=== PATIENT | male | born 1960 | race Caucasian/White ===

== ENCOUNTER 2020-01-29 12:21 | Outpatient (REF) | payer OTHER, SELFPAY ==
--- NOTE | 2020-01-29 12:22 | XR_ITS ---
EXAMINATION: BILATERAL KNEE X-RAY CLINICAL INFORMATION: Bilateral knee pain COMPARISON: Previous x-ray July 2014 TECHNIQUE: Standing AP, lateral and sunrise views of both knees FINDINGS: Right: Bone alignment is normal. No fracture or dislocation is seen. There is severe arthritis at the medial femoral tibial patellofemoral joints with joint space narrowing and osteophyte formation. There is a small joint effusion. Left: Bone alignment is normal. No rupture or dislocation is seen. There is severe arthritis at the medial femoral tibial and patellofemoral joints with joint space narrowing and osteophyte formation. There is a small joint effusion. XR/XR knee standing BI IMPRESSION: Severe bilateral arthritis.
--- NOTE | 2020-01-29 12:22 | XR_ITS ---
EXAMINATION: BILATERAL KNEE X-RAY CLINICAL INFORMATION: Bilateral knee pain COMPARISON: Previous x-ray July 2014 TECHNIQUE: Standing AP, lateral and sunrise views of both knees FINDINGS: Right: Bone alignment is normal. No fracture or dislocation is seen. There is severe arthritis at the medial femoral tibial patellofemoral joints with joint space narrowing and osteophyte formation. There is a small joint effusion. Left: Bone alignment is normal. No rupture or dislocation is seen. There is severe arthritis at the medial femoral tibial and patellofemoral joints with joint space narrowing and osteophyte formation. There is a small joint effusion. XR/XR knee RT 2V IMPRESSION: Severe bilateral arthritis.
--- NOTE | 2020-01-29 12:22 | XR_ITS ---
EXAMINATION: BILATERAL KNEE X-RAY CLINICAL INFORMATION: Bilateral knee pain COMPARISON: Previous x-ray July 2014 TECHNIQUE: Standing AP, lateral and sunrise views of both knees FINDINGS: Right: Bone alignment is normal. No fracture or dislocation is seen. There is severe arthritis at the medial femoral tibial patellofemoral joints with joint space narrowing and osteophyte formation. There is a small joint effusion. Left: Bone alignment is normal. No rupture or dislocation is seen. There is severe arthritis at the medial femoral tibial and patellofemoral joints with joint space narrowing and osteophyte formation. There is a small joint effusion. XR/XR knee LT 2V IMPRESSION: Severe bilateral arthritis.
== END 2020-01-29 12:22 | disposition home or self-care (01) ==
LOC: HO.HOSX 12:21
PROVIDERS: Visit Provider Orthopaedic Surgery
DX: M25.561 Pain in right knee (principal); M25.562 Pain in left knee
CPT/HCPCS: 20610; 73560; 73565; 99202; J1040

== ENCOUNTER → 2021-02-27 20:58 | Outpatient (REF) | payer OTHER, SELFPAY | LOC: HO.SL 20:58 | PROVIDERS: Visit Provider Internal Medicine | DX: G47.33 Obstructive sleep apnea (adult) (pediatric) (principal) | CPT/HCPCS: 95810 ==

== ENCOUNTER → 2021-06-04 13:38 | Outpatient (BNVA) | payer OTHER, SELFPAY | PROVIDERS: Visit Provider Orthopaedic Surgery | DX: M17.0 Bilateral primary osteoarthritis of knee (principal); E11.9 Type 2 diabetes mellitus without complications; I50.9 Heart failure, unspecified | CPT/HCPCS: 20610; 99212; J1100 ==

== ENCOUNTER 2021-06-18 15:10 | Emergency (ER) | payer OTHER, SELFPAY ==
--- NOTE | ~2021-06-18 | US_ITS ---
EXAMINATION: US VENOUS WITH DOPPLER UPPER EXTREMITY, LEFT CLINICAL INFORMATION: Edema. Pain. Swelling. COMPARISON: None TECHNIQUE: Ultrasound of the upper extremity is performed using compression sonography and color and pulse Doppler flow with assessment of augmentation of flow. There is also imaging and Doppler assessment of the jugular and subclavian veins. Spectral analysis with color-flow imaging is performed. FINDINGS: Respiratory variation, normal compression, and augmented flow are noted throughout the upper extremity including the axillary, brachial, cubital, and radial and ulnar veins. There is normal flow in the internal jugular and subclavian veins. There is no visible deep or superficial thrombophlebitis. If the patient's symptoms progress, a followup ultrasound in 5 -7 days might be of value to exclude proximal propagation from a nonvisualized distal arm vein. US/US venous duplex UE LT IMPRESSION: No DVT demonstrated in the left upper extremity
--- NOTE | ~2021-06-18 | XR_ITS ---
EXAMINATION: LEFT HUMERUS AND LEFT FOREARM. CLINICAL INFORMATION: Pain and swelling. COMPARISON: None TECHNIQUE: 2 views left humerus and 2 views left forearm. FINDINGS: Left forearm: There is no visible fracture or bony abnormality. Spurring along the olecranon process. There is mild soft tissue swelling left mid forearm. Left humerus: There is mild soft tissue swelling left arm but no visible bony abnormality, fracture or periosteal thickening. Small superior olecranon process enthesophyte is seen. XR/XR forearm LT 2V IMPRESSION: Mild soft tissue swelling left arm and mid forearm. Small olecranon process enthesophyte. No bony abnormality involving the left humerus, radius or ulna.
--- NOTE | ~2021-06-18 | XR_ITS ---
EXAMINATION: LEFT HUMERUS AND LEFT FOREARM. CLINICAL INFORMATION: Pain and swelling. COMPARISON: None TECHNIQUE: 2 views left humerus and 2 views left forearm. FINDINGS: Left forearm: There is no visible fracture or bony abnormality. Spurring along the olecranon process. There is mild soft tissue swelling left mid forearm. Left humerus: There is mild soft tissue swelling left arm but no visible bony abnormality, fracture or periosteal thickening. Small superior olecranon process enthesophyte is seen. XR/XR humerus LT IMPRESSION: Mild soft tissue swelling left arm and mid forearm. Small olecranon process enthesophyte. No bony abnormality involving the left humerus, radius or ulna.
[2021-06-18 15:31] VITALS: BP 140/80; PULSE 88; O2SAT 97
[2021-06-18 16:19] VITALS: BP 109/63; PULSE 100; RESP 18; TEMP 36.7; O2SAT 97; BMI 45.3
[2021-06-18 16:41] LABS: MANUAL DIFF FLAG NO
[2021-06-18 16:43] LABS: Basophils Percent Auto 0.3 % (0-2); Eosinophils Absolute Auto 0.3 X10*3/uL (0.0-0.4); Eosinophils Percent Auto 1.7 % (0-4); Hematocrit 27.5 % (42.0-52.0); Hemoglobin 9.4 g/dl (14.0-18.0); Imm Gran Abs Auto 0.08 X10*3/uL (0.00-0.03); Imm Gran Pct Auto 0.5 % (0.0-0.4); Lymphocytes Percent Auto 6.6 % (20-40); Mean Corpuscular HGB Conc 34.2 g/dl (31.0-36.0); Mean Corpuscular Hemoglobin 27.5 pg (27.0-33.0); Mean Corpuscular Volume 80.4 fL (80.0-98.0); Mean Platelet Volume 8.2 fL (9.4-12.4); Monocytes Absolute Auto 1.2 X10*3/uL (0.1-1.2); Monocytes Percent Auto 8.1 % (2-11); Neutrophils Absolute Auto 12.1 x10*3/uL (2.0-8.3); Neutrophils Percent Auto 82.8 % (45-73); Platelet Count 328 X10*3/uL (160-400); Red Blood Count 3.42 X10*6/uL (4.60-5.80); White Blood Count 14.6 X10*3/uL (4.8-10.8)
[2021-06-18 16:48] LABS: INTERNATIONAL NORM RATIO 3.9 (0.9-1.1); Prothrombin Time 45.2 SEC (9.9-13.0)
[2021-06-18 16:51] LABS: Partial Thromboplastin Time 47.6 SEC (24.1-38.0)
[2021-06-18 17:01] LABS: Anion Gap 17 (12-20); Blood Urea Nitrogen 35 mg/dL (9-16); Calcium 8.7 mg/dL (8.4-10.2); Carbon Dioxide 24 mmol/L (22-29); Chloride 96 mmol/L (96-108); Creatinine Clr Calc Pharmacy 59.6; Estimated Glomerular Filt Rate 35; Glucose Random 99 mg/dL (60-115); Potassium 2.8 mmol/L (3.3-5.1); Sodium 134 mmol/L (135-145)
[2021-06-19 00:16] LABS: Alanine Aminotransferase 30 U/L (0-40); Albumin Level 3.4 g/dL (3.5-5.0); Alkaline Phosphatase 83 U/L (39-117); Aspartate Amino Transferase 35 U/L (5-37); Bilirubin Direct 0.4 mg/dL (0.0-0.5); Bilirubin Total 0.7 mg/dL (0.0-1.0); Lipase 33 U/L (8-78); Total Protein 6.1 g/dL (6.5-8.0)
--- NOTE | 2021-06-19 00:35 | ED.GENADULT ---
HPI - General Adult General Chief complaint: General Medical Stated complaint: LE WEAKNESS W/FALL Time Seen by Provider: 06/18/21 23:52 Source: patient Mode of arrival: ambulatory History of Present Illness HPI narrative: 61-year-old male presentation for left upper extremity pain that has been ongoing for 3 days without associated trauma, laceration, infected fingernails, and denies any shortness of breath/chest pain/palpitations but reports chills. Patient states that the arm is very tender any time he tries to move it. In addition, patient presents after having stepped out of the shower earlier today and felt like his legs were shaking which caused him to fall and land on his bottom without head strike or loss of consciousness. Patient denies any saddle anesthesia and typically has difficulty getting around with a cane and states that he often ?staggers from 1 place to the next?. Patient also reports that he has chronic bilateral ankle edema for which he takes Lasix. Related Data Home Medications Medication Instructions Recorded Confirmed amlodipine 10 mg tablet 10 mg PO DAILY 01/07/20 aspirin 81 mg tablet,delayed 81 mg PO DAILY 01/07/20 release (Adult Low Dose Aspirin) atorvastatin 20 mg tablet 20 mg PO BEDTIME 01/07/20 ferrous sulfate 143 mg (45 mg 90 mg PO DAILY tab 01/07/20 iron) tablet,extended release furosemide 40 mg tablet 40 mg PO DAILY 01/07/20 mupirocin 2 % topical ointment 1 appl TOPICAL BID 01/07/20 warfarin 5 mg tablet 5 mg PO DAILY 01/07/20 zolpidem 10 mg tablet (Ambien) 10 mg PO BEDTIME PRN 01/07/20 bupropion HCl 150 mg tablet,12 hr 150 mg PO 06/04/21 sustained-release hydralazine 25 mg tablet 25 mg PO 06/04/21 ramelteon 8 mg tablet 8 mg PO BEDTIME 06/04/21 sodium zirconium cyclosilicate 10 g PO 06/04/21 gram oral powder packet (Lokelma) Previous Rx's Medication Instructions Recorded cephalexin 500 mg capsule 500 mg PO BID 7 Days #14 cap 06/19/21 doxycycline hyclate 100 mg capsule 100 mg PO BID 7 Days #14 cap 06/19/21 Allergies Allergy/AdvReac Type Severity Reaction Status Date / Time No Known Allergies Allergy Unverified 10/25/19 17:24 Review of Systems Review of Systems: Pertinent positives and negatives as stated in HPI 10 point review of systems is otherwise negative. [facility] Past Medical History Source: nursing notes reviewed Medical History Anemia Atrial fibrillation Congestive heart failure Impaired fasting glucose Microalbuminuria Obesity QT prolongation Sleep disorder Stage 3 chronic kidney disease Type 2 diabetes mellitus Vitamin D deficiency Social History Social History Advance Directives: No Current occupation: Right handed Physical Exam ED Vital Signs: Vital Signs - 24 hr 06/18/21 16:19 06/19/21 00:50 Temperature 98.1 F Pulse Rate 100 104 H Respiratory Rate 18 20 Blood Pressure 109/63 125/66 Pulse Oximetry 97 97 BMI result Body Mass Index 45.3 VITAL SIGNS: Reviewed. GENERAL: Elevated BMI, chronically ill, in no acute distress. HEAD: Normocephalic/atraumatic EYES: PERRLA, EOMI EARS: Ext canals without abnormality OROPHARYNX: no oral lesions noted, posterior pharynx clear LUNGS: Normal breath sounds. No adventitious sounds or accessory muscle use. SpO2<97> CARDIOVASCULAR: Regular rate and rhythm without noted murmurs, no JVD but bilateral 1 to 2+ pitting ankle edema ABDOMEN: Soft, non-tender, non-distended with bowel sounds. MUSCULOSKELETAL: No tenderness, deformities, or effusions noted on gross inspection. EXTREMITIES: No cyanosis, clubbing or edema; LEFT UPPER EXTREMITY: Warm, erythematous, significant pain on movement of any of the fingers/hand/wrist for palpation around the elbow maximal at left shoulder. SKIN: Inspection of the skin reveals no rashes NEUROLOGIC: Alert and oriented x 4. Strength and sensation to light touch were grossly intact x 4. Course Course Course Narrative: 61-year-old male with history and clinical presentation suggestive of left upper extremity cellulitis with unknown etiology. Patient does report a recent left knee injection and suspect that his lower extremity difficulty that he experienced this morning may have been due to low potassium levels. However on review all investigations there is a noted leukocytosis which is consistent with clinical findings of cellulitis. No suspicion or evidence at this time for cauda equina or fractures. Patient treated with tramadol and received initial antibiotics. The patient did miss his Coumadin dose from last night, but his INR was noted to be elevated at 3.9. This was discussed with the patient and he was instructed to hold the Coumadin for 1 more dose and then resume. Patient endorses that he has a repeat INR scheduled for this next . He was also instructed to call his primary care provider 1st thing in the morning to schedule a re-evaluation. He is otherwise discharged home in stable condition. Medical Decision Making Lab Data Result diagrams: 06/18/21 16:36 06/18/21 16:36 Labs: Lab Results 06/18/21 06/18/21 06/18/21 Range/Units 16:36 16:36 16:36 WBC 14.6 H (4.8-10.8) X10*3/uL RBC 3.42 L (4.60-5.80) X10*6/uL Hgb 9.4 L (14.0-18.0) g/dl Hct 27.5 L (42.0-52.0) % MCV 80.4 (80.0-98.0) fL MCH 27.5 (27.0-33.0) pg MCHC 34.2 (31.0-36.0) g/dl RDW 14.0 (11.0-16.0) % Plt Count 328 (160-400) X10*3/uL MPV 8.2 L (9.4-12.4) fL Immature Gran % (Auto) 0.5 H (0.0-0.4) % Neut % (Auto) 82.8 H (45-73) % Lymph % (Auto) 6.6 L (20-40) % [place] % (Auto) 8.1 (2-11) % Eos % (Auto) 1.7 (0-4) % Baso % (Auto) 0.3 (0-2) % Lymph # (Auto) 1.0 L (1.2-4.9) X10*3/uL [place] # (Auto) 1.2 (0.1-1.2) X10*3/uL Eos # (Auto) 0.3 (0.0-0.4) X10*3/uL Baso # (Auto) 0.0 (0.0-0.2) X10*3/uL Abs Immat Gran (auto) 0.08 H (0.00-0.03) X10*3/uL Absolute Neuts (auto) 12.1 H (2.0-8.3) x10*3/uL Absolute Nucleated RBC 0.000 (0.0-0.012) X10*3/uL Nucleated RBC % (auto) 0.0 (0.0-0.2) /100WBC PT 45.2 H (9.9-13.0) SEC INR 3.9 H (0.9-1.1) APTT 47.6 H (24.1-38.0) SEC Sodium 134 L (135-145) mmol/L Potassium 2.8 L (3.3-5.1) mmol/L Chloride 96 (96-108) mmol/L Carbon Dioxide 24 (22-29) mmol/L Anion Gap 17 (12-20) BUN 35 H (9-16) mg/dL Creatinine 1.94 H (0.5-1.4) mg/dL Estim Creat Clear Calc 59.6 Estimated GFR 35 Random Glucose 99 (60-115) mg/dL Calcium 8.7 (8.4-10.2) mg/dL Magnesium 2.2 (1.6-2.6) mg/dL Total Bilirubin 0.7 (0.0-1.0) mg/dL Direct Bilirubin 0.4 (0.0-0.5) mg/dL AST 35 (5-37) U/L ALT 30 (0-40) U/L Alkaline Phosphatase 83 (39-117) U/L Total Protein 6.1 L (6.5-8.0) g/dL Albumin 3.4 L (3.5-5.0) g/dL Lipase 33 (8-78) U/L Discharge Plan Discharge Clinical Impression: Hypokalemia, Cellulitis, Elevated INR Patient Disposition: Home, Self-Care Instructions: Cellulitis (ED), Potassium Content of Foods List (ED), Hypokalemia (ED), Elevated INR (ED) Additional Instructions: 1. Resume all home medications as prescribed. EXCEPT: Hold iron medication until the completion of your antibiotics as there is an interaction. Hold the dose of Coumadin for Tuesday evening, then resume your Coumadin as prescribed on Tuesday and continue until your repeat INR on . 2. Complete the entire course of your antibiotics. 3. It is very important that you call the office of your primary care provider in the morning to arrange for an appointment, re-evaluation of your left upper extremity, as well as additional testing for your potassium and INR. Patient's son was with him the entire time and is a safe discharge with the son. Do not hesitate to return to the emergency room should you experience acute worsening of your symptoms or develops new concerning symptoms. Prescriptions: New doxycycline hyclate 100 mg capsule 100 mg PO BID 7 Days Qty: 14 0RF cephalexin 500 mg capsule 500 mg PO BID 7 Days Qty: 14 0RF No Action amlodipine 10 mg tablet 10 mg PO DAILY 0RF furosemide 40 mg tablet 40 mg PO DAILY 0RF warfarin 5 mg tablet 5 mg PO DAILY 0RF aspirin [Adult Low Dose Aspirin] 81 mg tablet,delayed release (DR/EC) 81 mg PO DAILY 0RF mupirocin 2 % ointment 1 appl topical BID 0RF atorvastatin 20 mg tablet 20 mg PO BEDTIME 0RF ferrous sulfate 143 mg (45 mg iron) tablet extended release 90 mg PO DAILY 0RF zolpidem [Ambien] 10 mg tablet 10 mg PO BEDTIME PRN0RF hydralazine 25 mg tablet 25 mg PO 0RF Lokelma 10 gram powder in packet PO 0RF ramelteon 8 mg tablet 8 mg PO BEDTIME 0RF bupropion HCl 150 mg tablet sustained-release 12 hr 150 mg PO 0RF Referrals: Jennifer Peters MD [Primary Care Provider] - (Hypokalemia, cellulitis of left upper extremity (started on antibiotics), INR elevated and instructed patient to hold 2 doses and then re-start.)
[2021-06-19 00:50] VITALS: BP 125/66; PULSE 104; RESP 20; O2SAT 97
[2021-06-19 00:55] LABS: Magnesium 2.2 mg/dL (1.6-2.6)
[2021-06-19] MEDS: Potassium Chloride ER 20 MEQ TAB.ER.PRT 60 MEQ PO (01:17)
[2021-06-19] MEDS: Acetaminophen 325 MG TABLET 975 MG PO (02:07)
[2021-06-19] MEDS: cephALEXin 500 MG CAPSULE PO (02:07)
[2021-06-19] MEDS: traMADoL HCL 50 MG TABLET 25 MG PO (02:27)
== END 2021-06-19 02:42 | disposition home or self-care (01) ==
PROVIDERS: Emergency Provider Student in an Organized Health Care Education/Training Program; PCP Internal Medicine
DX: E87.6 Hypokalemia (principal); L03.114 Cellulitis of left upper limb; R79.1 Abnormal coagulation profile; M79.622 Pain in left upper arm; I13.0 Hypertensive heart and chronic kidney disease with heart failure and stage 1 through stage 4 chronic kidney disease, or unspecified chronic kidney disease; E11.22 Type 2 diabetes mellitus with diabetic chronic kidney disease; N18.30 Chronic kidney disease, stage 3 unspecified; I50.9 Heart failure, unspecified; I48.91 Unspecified atrial fibrillation; Z79.899 Other long term (current) drug therapy
CPT/HCPCS: 36415; 73060; 73090; 80048; 80076; 83690; 83735; 85025; 85610; 85730; 93971; 99283; 99284

== ENCOUNTER 2021-06-23 22:07 | Inpatient (IN) | payer OTHER, SELFPAY ==
--- NOTE | ~2021-06-23 | CT_ITS ---
EXAMINATION: CT ABDOMEN AND PELVIS WITHOUT CONTRAST CLINICAL INFORMATION: Elevated LFTs COMPARISON: 01/23/2018 TECHNIQUE: Multidetector volumetric imaging was performed from the superior aspect of the liver through the pubic symphysis. Sagittal and coronal reformatted images were obtained on the technologist's workstation. This CT examination was performed using dose optimization techniques as appropriate, variously including the following: *Automated exposure control *Adjustment of mA and/or kV according to patient size (this includes techniques or standardized protocols for targeted exams where dose is matched to indication/reason for exam; i.e. extremities or head) *Use of iterative reconstruction technique DLP: 1374 mGy-cm FINDINGS: LUNG BASES: The visualized lung bases are unremarkable. LIVER, GALLBLADDER, AND BILIARY TREE: The liver is normal in size, shape, and attenuation. No focal hepatic lesion or biliary ductal dilatation is present. Numerous stones throughout the gallbladder lumen. No wall thickening or pericholecystic fluid. There is a stone in the gallbladder neck/cystic duct. This stone is also suspected in the common bile duct near the pancreas, measuring 0.3 cm on series 3 image 38. There may be up to 3 stones present, series 7 image 48 and 49. PANCREAS: Unremarkable. SPLEEN: Unremarkable. ADRENAL GLANDS: Unremarkable. KIDNEYS AND URETERS: The kidneys are normal in size, shape, and attenuation. No hydronephrosis or hydroureter. Bilateral nonobstructing renal calculi. There are 2 calculi on the right. The largest is seen at the upper pole measuring 0.4 cm, 12 cm from the posterior axillary line. Left lower pole 0.7 x 0.2 cm calculus is 14 cm from the posterior axillary line. BLADDER: Unremarkable. GASTROINTESTINAL TRACT: The stomach is unremarkable. Normal caliber small bowel. No obstruction. No colonic wall thickening or acute inflammation. Diverticulosis without diverticulitis. Normal appendix. No free air or free fluid. ABDOMINAL WALL: No significant hernia is appreciated. LYMPH NODES: Normal. VASCULAR: Normal caliber aorta with mild atherosclerotic calcification. PELVIC VISCERA: The prostate and seminal vesicles are unremarkable. OSSEOUS STRUCTURES: No acute or suspicious osseous abnormality. Moderate degenerative changes of the hips. Mild degenerative changes of the spine. CT/CT abdomen pelvis wo con IMPRESSION: Cholelithiasis with no inflammatory changes of the gallbladder. There may be a small stone in the cystic duct. There also appears to be a stone in the distal common bile duct, consistent with choledocholithiasis. There may be up to 3 stones present in the common duct. Nonobstructing bilateral renal calculi. Fleischner guidelines were followed.
--- NOTE | ~2021-06-23 | US_ITS ---
EXAMINATION: US ABDOMEN LIMITED CLINICAL INFORMATION: Transaminitis. COMPARISON: Abdomen CT from 06/24/2021 TECHNIQUE: Real-time imaging of the right upper quadrant abdominal viscera. FINDINGS: PANCREAS: The majority of the pancreas is obscured by bowel gas. The visualized portions of the pancreas have normal echotexture. No pancreatic ductal dilatation or peripancreatic fluid. LIVER: Liver has normal size, contour and parenchymal echotexture. No focal liver lesion or intrahepatic bile duct dilatation. GALLBLADDER: The gallbladder is underdistended and contains multiple shadowing calculi. No gallbladder wall thickening or pericholecystic fluid. COMMON BILE DUCT: Normal in caliber measuring 0.4 cm in diameter. A small echogenic focus within the nondilated CBD is suspicious for choledocholithiasis (image 50 of 71). RIGHT KIDNEY: The right kidney measures 11.8 cm in maximum dimension. Small, 0.5 cm and 0.4 cm calculi are seen within the upper and lower pole, respectively. No hydronephrosis. A Bosniak category 2 cyst with thin septation of the upper pole measures up to 2 cm. No renal imaging follow-up recommended. FREE FLUID: None. US/US abdomen limited IMPRESSION: * Cholelithiasis without evidence of acute cholecystitis. * Although there appears to be choledocholithiasis, there is no associated ductal dilatation. * Nonobstructing calyceal stones of the right kidney.
--- NOTE | ~2021-06-23 | MR_ITS ---
EXAMINATION: MR ABDOMEN WITHOUT CONTRAST CLINICAL INFORMATION: Abdominal pain. Choledocholithiasis COMPARISON: Ultrasound 06/24/2021. CT abdomen pelvis 06/24/2021 TECHNIQUE: Multiplanar MR images through the abdomen were obtained on a 1.5 Radha MR system without IV contrast. Heavily T2-weighted MRCP sequences of the biliary tree were obtained in multiple planes. FINDINGS: LUNG BASES: Lung bases are clear. LIVER: The liver is normal in size and signal. No hepatic steatosis is seen. No focal cystic or solid mass is present. GALLBLADDER: Numerous tiny dependent gallstones are seen within the gallbladder. No gallbladder wall thickening or pericholecystic fluid. BILIARY TREE: 3dmosping...Rald the common bile duct is only well seen on the coronal single shot series, for example series 5 images 10-12. No intrahepatic biliary ductal dilation. The common bile duct is normal in caliber, 0.3 cm in diameter. No intraluminal filling defects seen. PANCREAS: The pancreas is normal in appearance. No ductal dilatation, mass or dennis-pancreatic fluid seen. SPLEEN: Normal. Normal size. No focal lesion. ADRENAL GLANDS: Normal. No adrenal mass. KIDNEYS AND URETERS: Normal size and signal. No hydronephrosis or mass. LYMPHOVASCULAR STRUCTURES: Normal caliber aorta. IVC patent. No pathologically enlarged abdominal or retroperitoneal lymphadenopathy by size criteria OSSEOUS STRUCTURES: No acute or suspicious osseous abnormalities. No ascites. Visualized bowel is nondilated. MR/MR MRCP IMPRESSION: Limited study but no choledocholithiasis seen. There is unclear if the suspected choledocholithiasis on the CT scan has resolved or is not seen for technical reasons. Cholelithiasis is seen.
--- NOTE | ~2021-06-23 | XR_ITS ---
EXAMINATION: XR CHEST CLINICAL INFORMATION: Covid COMPARISON: 06/16/2016 TECHNIQUE: Frontal view of the chest was obtained. FINDINGS: No acute finding. There is no infiltrate. The lung booth are grossly clear. The cardiac silhouette is prominent but similar to previous. The hilar structures are comparable XR/XR chest 1V IMPRESSION: No acute finding
--- NOTE | ~2021-06-23 | CT_ITS ---
EXAMINATION: CT HEAD W/O IV CONTRAST CT CERVICAL SPINE W/O IV CONTRAST CLINICAL INFORMATION: Trauma. Recent fall. COMPARISON: None TECHNIQUE: Head - Contiguous axial imaging of the head was performed from the skull base to the vertex without the administration of intravenous contrast, and axial images are reconstructed at 2 mm and 5 mm slice thickness. Cervical spine - A volumetric, helical CT acquisition of the cervical spine was obtained without contrast; in addition to the standard set of axial images, multiplanar reformatted images were provided in the coronal and sagittal imaging planes. This CT examination was performed using dose optimization techniques as appropriate, variously including the following: *Automated exposure control *Adjustment of mA and/or kV according to patient size (this includes techniques or standardized protocols for targeted exams where dose is matched to indication/reason for exam; i.e. extremities or head) *Use of iterative reconstruction technique DLP: 848.69 mGy-cm for the head CT 615 mGy-cm for the cervical spine CT FINDINGS: HEAD: No evidence of intracranial hemorrhage, major vascular territory infarction, focal mass effect or midline shift. Myers to white matter differentiation is preserved. No extra-axial fluid collections. Mild parenchymal volume loss with commensurate prominence of ventricles and sulci; no hydrocephalus. Mild patchy hypoattenuation within supratentorial white matter is compatible with sequela of chronic mild microangiopathy. No acute findings within the posterior fossa. The cerebellar tonsils are in normal position. The calvarium is intact. There is a mucus retention cyst of the left frontal sinus. Mild mucosal thickening of inferior maxillary sinuses. No air-fluid levels within paranasal sinuses. The orbits, globes and temporomandibular joints are unremarkable. The mastoid air cells are well aerated. There is periodontal disease with observation of periapical lucencies around some of the maxillary teeth. CERVICAL SPINE: The cervical spine has normal curvature. No acute abnormalities. The craniocervical junction is normal. The occipital condyles, dens and atlantodental articulation are intact. The vertebral body heights are maintained. No fractures in the anterior or posterior elements. No prevertebral soft tissue swelling. Multilevel facet osteoarthritis. Also, there is right-sided facet joint ankylosis at C4-C5. There is 0.2 cm degenerative anterolisthesis at C4-C5 and minimal retrolisthesis at C5-C6. Moderate discovertebral degenerative change at C4-C5, C5-C6 and C6-C7. The facet and uncovertebral joint hypertrophy at C3-C4 produce severe left and moderate right neural foraminal stenosis. There is moderate right foraminal stenosis at C4-C5 and moderate bilateral foraminal stenosis at C5-C6. No spinal hematoma or focal fluid collection in the visualized neck. The examined lung apices are clear. Thyroid gland is normal. CT/CT cervical spine wo con IMPRESSION: * No intracranial hemorrhage or other acute intracranial pathology. * No fracture or traumatic subluxation of the degenerated cervical spine.
--- NOTE | ~2021-06-23 | CT_ITS ---
EXAMINATION: CT CHEST WITHOUT CONTRAST CLINICAL INFORMATION: Fall COMPARISON: Chest film dated 06/24/2021 TECHNIQUE: Multidetector volumetric CT imaging of the chest was done. Axial MIP volume rendering provided. Sagittal and coronal reformatted images were obtained. This CT examination was performed using dose optimization techniques as appropriate, variously including the following: *Automated exposure control *Adjustment of mA and/or kV according to patient size (this includes techniques or standardized protocols for targeted exams where dose is matched to indication/reason for exam; i.e. extremities or head) *Use of iterative reconstruction technique DLP: 646 mGy-cm FINDINGS: The thoracic inlet is felt to be within normal limits. The axillary regions are felt to be unremarkable. Partially visualized upper abdominal structures demonstrates a 4 mm calculus mid to upper pole right kidney. Gallstones in the gallbladder. There is no free fluid in the mediastinum. There is no bulky adenopathy. This is a noncontrast study but the hilar regions do not appear pathologically enlarged. Imaging lung booth; Right lung; There is no evidence for effusion. No pneumothorax. No significant infiltrate. 2 mm nodule on image 89 right upper lung 2 mm nodule on image 143 2 mm nodule on image 305. Calcified granuloma on image 305 and other small calcified granulomas are seen. Left lung; There is no pneumothorax. No infiltrate or effusion. Some scattered calcified granulomas are likely present. 2 mm nodule on image 163 Mild left basilar atelectasis. 4 mm calcified granuloma on image 295 Review of the bone windows does not demonstrate evidence for fracture. Degenerative change in the thoracic spine. CT/CT chest wo con IMPRESSION: Negative acute noncontrast CT of the chest. Cholelithiasis is noted. Nonobstructing calculus right kidney. Small areas of lung nodularity. The majority of these are calcified granulomas but some are too small to be adequately characterize. Consider noncontrast CT in one year for continued evaluation
--- NOTE | ~2021-06-23 | XR_ITS ---
EXAMINATION: XR ANKLE, RIGHT CLINICAL INFORMATION: Right ankle swelling and pain, status post fall COMPARISON: None TECHNIQUE: AP, lateral, and mortise views of the right ankle. FINDINGS: No evidence of acute fracture or subluxation. The talar dome is well-positioned within the ankle mortise. The ankle joint space is maintained. Small dorsal osteophytes at the talonavicular, navicular-cuneiform and second tarsometatarsal articulations. Peripheral vessels are calcified. There is nonspecific soft tissue swelling of the leg, ankle and foot. No soft tissue gas. XR/XR ankle RT 2V IMPRESSION: * No acute fracture or malalignment at the right ankle. * Nonspecific soft tissue swelling of the extremity.
[2021-06-23 22:01] VITALS: BP 105/57; BP 105/75; PULSE 90; RESP 15; TEMP 36.8; O2SAT 97; BMI 32.8
[2021-06-23 23:27] VITALS: BP 118/52; PULSE 83; RESP 14; O2SAT 97
--- NOTE | 2021-06-23 23:42 | ECG_ITS ---
Test Reason : WEAKNESS Blood Pressure : / mmHG Vent. Rate : 095 BPM Atrial Rate : 249 BPM P-R Int : 000 ms QRS Dur : 114 ms QT Int : 428 ms P-R-T Axes : 000 -33 064 degrees QTc Int : 537 ms Atrial flutter with variable A-V block Left axis deviation Prolonged QT Abnormal ECG When compared with ECG of 01-NOV-2014 14:57, Atrial flutter has replaced Sinus rhythm Vent. rate has increased BY 33 BPM T wave amplitude has decreased in Anterior leads Referred By: Mable Iqbal Electronically Signed By:LORETTA FLYNN
--- NOTE | 2021-06-23 23:45 | ED.WEAKNESS ---
HPI - Weakness General Chief complaint: Weakness Stated complaint: fall covid + Time Seen by Provider: 06/23/21 23:28 Source: patient and EMS Mode of arrival: EMS Limitations: no limitations History of Present Illness HPI Narrative: Patient comes in the emergency room complaining of multiple falls and weakness. Patient states that for about a week, he has been complaining that his legs suddenly gave out. Patient states that sometimes he is just standing and then he has falls straight down. This happened approximately 1 week ago, and then today, patient was getting into his son's car, same thing happen. Both times patient did not lose consciousness, did not hit his head, patient is on Eliquis. This time patient came to the emergency room because he was unable to get up, ambulance was called for a lift assist and decided to come to the emergency room. Patient states that he is concerned that he has COVID. Related Data Home Medications Medication Instructions Recorded Confirmed amlodipine 10 mg tablet 10 mg PO DAILY 01/07/20 aspirin 81 mg tablet,delayed 81 mg PO DAILY 01/07/20 release (Adult Low Dose Aspirin) atorvastatin 20 mg tablet 20 mg PO BEDTIME 01/07/20 ferrous sulfate 143 mg (45 mg 90 mg PO DAILY tab 01/07/20 iron) tablet,extended release furosemide 40 mg tablet 40 mg PO DAILY 01/07/20 mupirocin 2 % topical ointment 1 appl TOPICAL BID 01/07/20 warfarin 5 mg tablet 5 mg PO DAILY 01/07/20 zolpidem 10 mg tablet (Ambien) 10 mg PO BEDTIME PRN 01/07/20 bupropion HCl 150 mg tablet,12 hr 150 mg PO 06/04/21 sustained-release hydralazine 25 mg tablet 25 mg PO 06/04/21 ramelteon 8 mg tablet 8 mg PO BEDTIME 06/04/21 sodium zirconium cyclosilicate 10 g PO 06/04/21 gram oral powder packet (Lokelwa) Previous Rx's Medication Instructions Recorded cephalexin 500 mg capsule 500 mg PO BID 7 Days #14 cap 06/19/21 doxycycline hyclate 100 mg capsule 100 mg PO BID 7 Days #14 cap 06/19/21 Allergies Allergy/AdvReac Type Severity Reaction Status Date / Time No Known Allergies Allergy Unverified 10/25/19 17:24 Review of Systems Review of Systems: Constitutional : No Weight loss, No Fever, No Chills, No Night Sweats, complaining of generalized weakness ENT/Mouth : No Hearing loss, No Ear Pain, No Nasal Congestion, No Sinus Pain, No Hoarseness, No sore throat, No Rhinorrhea, No Swallowing Difficulty Eyes: No Eye Pain, No Swelling, No Redness, No Foreign Body, No Discharge, No Vision Changes Cardiovascular : No Chest Pain, No SOB, No Dyspnea on Exertion, No Orthopnea, No Edema, No Palpitations Respiratory : No Cough, No Sputum, No Wheezing, No Smoke Exposure, No Dyspnea Gastrointestinal : No Nausea, No Vomiting, No Diarrhea, No Constipation, No abdominal Pain, No Hematochezia, No Melena Genitourinary : no irregular bleeding, No Dysuria, No Urinary Frequency, No Hematuria, No Urinary Incontinence, No Urgency, No Flank Pain, No Urinary Flow Changes, No Hesitancy Musculoskeletal : Complaining of chronic lower extremity pain, especially left knee since 1984 Skin : No Skin Lesions, No rash Neuro : No Weakness, No Numbness, No Paresthesias, No Loss of Consciousness, No Dizziness, No Headache Psych : No Anxiety/Panic, No Depression, No SI/HI/AH/VH, No Social Issues, Heme/Lymph: No Bruising, No Bleeding,No Lymphadenopathy Endocrine : No Polyuria, No Polydipsia, No Temperature Intolerance [facility] Past Medical History Medical History Anemia Atrial fibrillation Congestive heart failure Impaired fasting glucose Microalbuminuria Obesity QT prolongation Sleep disorder Stage 3 chronic kidney disease Type 2 diabetes mellitus Vitamin D deficiency Social History Social History Alcohol intake: never Patient Tobacco Use Status: Never used Tobacco Use of substances other than those prescribed or required for medical reasons: No Advance Directives: No Advance Directives Information Provided: No Current occupation: Right handed Physical Exam Vital Signs: Vital Signs: Last Vital Signs Temp 98.2 F 06/23/21 22:01 Pulse 94 06/24/21 00:35 Resp 18 06/24/21 00:35 BP 98/49 L 06/24/21 00:35 Pulse Ox 95 06/24/21 00:35 BMI result Body Mass Index 32.8 Course Course Course Narrative: Patient's creatinine is at baseline, patient potassium 3.1. Patient states that he has had issues with hyperkalemia, that he was overmedicated and became hypokalemic. Today potassium 3.1, repleted with p.o. potassium 40 mEq. Patient's labs show increased LFTs, patient does not have right upper quadrant pain. Patient is COVID positive. It is possible that LFTs elevation are secondary to COVID. Will go ahead and order CT scan, at this time, acute cholecystitis is not suspected, patient has no abdominal pain. Patient seems weak. Patient will likely need case management physical therapy. Urinalysis and drug screen pending Sign-out given to Dr. Sol MDM - Weakness Lab Data Result diagrams: 06/24/21 00:43 06/24/21 00:42 Labs: Lab Results 06/24/21 06/24/21 06/24/21 Range/Units 00:42 00:42 00:42 WBC (4.8-10.8) X10*3/uL RBC (4.60-5.80) X10*6/uL Hgb (14.0-18.0) g/dl Hct (42.0-52.0) % MCV (80.0-98.0) fL MCH (27.0-33.0) pg MCHC (31.0-36.0) g/dl RDW (11.0-16.0) % Plt Count (160-400) X10*3/uL MPV (9.4-12.4) fL Immature Gran % (Auto) (0.0-0.4) % Neut % (Auto) (45-73) % Lymph % (Auto) (20-40) % [place] % (Auto) (2-11) % Eos % (Auto) (0-4) % Baso % (Auto) (0-2) % Lymph # (Auto) (1.2-4.9) X10*3/uL [place] # (Auto) (0.1-1.2) X10*3/uL Eos # (Auto) (0.0-0.4) X10*3/uL Baso # (Auto) (0.0-0.2) X10*3/uL Abs Immat Gran (auto) (0.00-0.03) X10*3/uL Absolute Neuts (auto) (2.0-8.3) x10*3/uL Absolute Nucleated RBC (0.0-0.012) X10*3/uL Nucleated RBC % (auto) (0.0-0.2) /100WBC PT 33.8 H (9.9-13.0) SEC INR 2.9 H (0.9-1.1) Sodium 137 (135-145) mmol/L Potassium 3.1 L (3.3-5.1) mmol/L Chloride 96 (96-108) mmol/L Carbon Dioxide 31 H (22-29) mmol/L Anion Gap 13 (12-20) BUN 27 H (9-16) mg/dL Creatinine 1.54 H (0.5-1.4) mg/dL Estim Creat Clear Calc 63.3 Estimated GFR 46 Random Glucose 205 H D (60-115) mg/dL Calcium 8.4 (8.4-10.2) mg/dL Magnesium 1.8 (1.6-2.6) mg/dL Total Bilirubin 1.0 (0.0-1.0) mg/dL Direct Bilirubin 0.7 H (0.0-0.5) mg/dL AST 139 H (5-37) U/L ALT 92 H (0-40) U/L Alkaline Phosphatase 350 H D (39-117) U/L B-Natriuretic Peptide (<100) pg/mL Total Protein 5.9 L (6.5-8.0) g/dL Albumin 3.2 L (3.5-5.0) g/dL TSH (0.32-4.0) uIU/mL COVID-19 (JUAN) Positive A (Negative) COVID-19 Clin Com See Note 06/24/21 06/24/21 06/24/21 Range/Units 00:42 00:42 00:43 WBC 5.4 (4.8-10.8) X10*3/uL RBC 3.37 L (4.60-5.80) X10*6/uL Hgb 8.8 L (14.0-18.0) g/dl Hct 27.6 L (42.0-52.0) % MCV 81.9 (80.0-98.0) fL MCH 26.1 L (27.0-33.0) pg MCHC 31.9 (31.0-36.0) g/dl RDW 14.6 (11.0-16.0) % Plt Count 339 (160-400) X10*3/uL MPV 8.0 L (9.4-12.4) fL Immature Gran % (Auto) 2.1 H (0.0-0.4) % Neut % (Auto) 86.6 H (45-73) % Lymph % (Auto) 5.8 L (20-40) % [place] % (Auto) 4.1 (2-11) % Eos % (Auto) 0.7 (0-4) % Baso % (Auto) 0.7 (0-2) % Lymph # (Auto) 0.3 L (1.2-4.9) X10*3/uL [place] # (Auto) 0.2 (0.1-1.2) X10*3/uL Eos # (Auto) 0.0 (0.0-0.4) X10*3/uL Baso # (Auto) 0.0 (0.0-0.2) X10*3/uL Abs Immat Gran (auto) 0.11 H (0.00-0.03) X10*3/uL Absolute Neuts (auto) 4.6 (2.0-8.3) x10*3/uL Absolute Nucleated RBC 0.000 (0.0-0.012) X10*3/uL Nucleated RBC % (auto) 0.0 (0.0-0.2) /100WBC PT (9.9-13.0) SEC INR (0.9-1.1) Sodium (135-145) mmol/L Potassium (3.3-5.1) mmol/L Chloride (96-108) mmol/L Carbon Dioxide (22-29) mmol/L Anion Gap (12-20) BUN (9-16) mg/dL Creatinine (0.5-1.4) mg/dL Estim Creat Clear Calc Estimated GFR Random Glucose (60-115) mg/dL Calcium (8.4-10.2) mg/dL Magnesium (1.6-2.6) mg/dL Total Bilirubin (0.0-1.0) mg/dL Direct Bilirubin (0.0-0.5) mg/dL AST (5-37) U/L ALT (0-40) U/L Alkaline Phosphatase (39-117) U/L B-Natriuretic Peptide 233 H (<100) pg/mL Total Protein (6.5-8.0) g/dL Albumin (3.5-5.0) g/dL TSH 0.67 (0.32-4.0) uIU/mL COVID-19 (JUAN) (Negative) COVID-19 Clin Com Discharge Plan Discharge Clinical Impression: Weakness, COVID-19, Acute hypokalemia, Elevated LFTs Patient Disposition: Still a Patient Prescriptions: No Action doxycycline hyclate 100 mg capsule 100 mg PO BID 7 Days Qty: 14 0RF cephalexin 500 mg capsule 500 mg PO BID 7 Days Qty: 14 0RF amlodipine 10 mg tablet 10 mg PO DAILY 0RF furosemide 40 mg tablet 40 mg PO DAILY 0RF warfarin 5 mg tablet 5 mg PO DAILY 0RF aspirin [Adult Low Dose Aspirin] 81 mg tablet,delayed release (DR/EC) 81 mg PO DAILY 0RF mupirocin 2 % ointment 1 appl topical BID 0RF atorvastatin 20 mg tablet 20 mg PO BEDTIME 0RF ferrous sulfate 143 mg (45 mg iron) tablet extended release 90 mg PO DAILY 0RF zolpidem [Ambien] 10 mg tablet 10 mg PO BEDTIME PRN0RF hydralazine 25 mg tablet 25 mg PO 0RF Lokelma 10 gram powder in packet PO 0RF ramelteon 8 mg tablet 8 mg PO BEDTIME 0RF bupropion HCl 150 mg tablet sustained-release 12 hr 150 mg PO 0RF
[2021-06-24] VITALS (10 sets, daily range): BP systolic 96–136; BP diastolic 49–76; PULSE 75–98; RESP 13–20; TEMP 36.1–36.9; O2SAT 95–98; BMI 42.4
[2021-06-24 00:53] LABS: Basophils Percent Auto 0.7 % (0-2); Eosinophils Percent Auto 0.7 % (0-4); Hematocrit 27.6 % (42.0-52.0); Hemoglobin 8.8 g/dl (14.0-18.0); Imm Gran Abs Auto 0.11 X10*3/uL (0.00-0.03); Imm Gran Pct Auto 2.1 % (0.0-0.4); Lymphocytes Absolute Auto 0.3 X10*3/uL (1.2-4.9); Lymphocytes Percent Auto 5.8 % (20-40); MANUAL DIFF FLAG NO; Mean Corpuscular HGB Conc 31.9 g/dl (31.0-36.0); Mean Corpuscular Hemoglobin 26.1 pg (27.0-33.0); Mean Corpuscular Volume 81.9 fL (80.0-98.0); Monocytes Absolute Auto 0.2 X10*3/uL (0.1-1.2); Monocytes Percent Auto 4.1 % (2-11); Neutrophils Absolute Auto 4.6 x10*3/uL (2.0-8.3); Neutrophils Percent Auto 86.6 % (45-73); Platelet Count 339 X10*3/uL (160-400); Red Blood Count 3.37 X10*6/uL (4.60-5.80); Red Cell Distribution Width 14.6 % (11.0-16.0); White Blood Count 5.4 X10*3/uL (4.8-10.8)
[2021-06-24 01:08] LABS: COVID-19 Test Positive (Negative)
[2021-06-24 01:11] LABS: INTERNATIONAL NORM RATIO 2.9 (0.9-1.1); Prothrombin Time 33.8 SEC (9.9-13.0)
[2021-06-24 01:17] LABS: B Type Natriuretic Peptide 233 pg/mL (<100)
[2021-06-24 01:26] LABS: Alanine Aminotransferase 92 U/L (0-40); Albumin Level 3.2 g/dL (3.5-5.0); Alkaline Phosphatase 350 U/L (39-117); Anion Gap 13 (12-20); Aspartate Amino Transferase 139 U/L (5-37); Bilirubin Direct 0.7 mg/dL (0.0-0.5); Blood Urea Nitrogen 27 mg/dL (9-16); Calcium 8.4 mg/dL (8.4-10.2); Carbon Dioxide 31 mmol/L (22-29); Chloride 96 mmol/L (96-108); Creatinine Clr Calc Pharmacy 63.3; Estimated Glomerular Filt Rate 46; Glucose Random 205 mg/dL (60-115); Magnesium 1.8 mg/dL (1.6-2.6); Potassium 3.1 mmol/L (3.3-5.1); Sodium 137 mmol/L (135-145); Total Protein 5.9 g/dL (6.5-8.0)
[2021-06-24 01:44] LABS: TSH reflex Free T4 0.67 uIU/mL (0.32-4.0)
[2021-06-24 02:57] LABS: Gamma Glutamyl Transpeptidase 273 U/L (11-51); Lactate Dehydrogenase 310 U/L (118-273)
[2021-06-24 03:39] LABS: Appearance Urine CLEAR; Color Urine YELLOW; Glucose Urine UA NEG (NEG); Leukocyte Esterase Urine NEG (NEG); Nitrite Urine NEG (NEG); Specific Gravity - Urine 1.015 (1.005-1.025); UACC Culture Trigger NO; Urine Blood 1+ (NEG); Urine Ketones NEG (NEG); Urine Protein NEG (NEG-TRACE)
[2021-06-24 03:42] LABS: Amphetamine Screen Urine Not Detected (Not Detect); Barbiturates, Urine Not Detected (Not Detect); Benzodiazepines Screen Urine Not Detected (Not Detect); Cannabinoid Screen Urine Not Detected (Not Detect); Cocaine Screen Urine Not Detected (Not Detect); Fentanyl, urine Not Detected (Not Detect); Opiate Screen Urine Not Detected (Not Detect); Phencyclidine Screen Urine Not Detected (Not Detect)
[2021-06-24 03:49] LABS: Bacteria Urine 1+ /LPF; Squamous Epithelial Cell Urine 1+ /LPF
[2021-06-24] MEDS: Furosemide 100 MG/10 ML VIAL 80 MG IVPUSH (04:46)
[2021-06-24] MEDS: Potassium Chloride Packet 20 MEQ PACKET 40 MEQ PO (04:46)
[2021-06-24] MEDS: Piperacillin Sodium/Tazobactam 3.375 GM in 0.9 % Sodium Chloride 50 ML IV (04:46)
--- NOTE | 2021-06-24 05:51 | P.HPHOSP_ITS ---
History of Present Illness Date of Service: 06/24/21 Chief Complaint: Fall 61-year-old female with a past medical history of hypertension, hyperlipidemia, diabetes, CAD, CHF, AFib on Coumadin, insomnia, depression presented to the hospital today with a chief complaint of generalized weakness/falls. Patient reports that over the past few days he has been having generalized weakness; had a fall on last Tuesday; presented to the ER and noted to have left wrist is/forearm cellulitis. Given antibiotics. Patient mentioned that yesterday he had cough and subjective fevers; checked his COVID-19 and came back positive. Infant generally weak; and today when he was trying to come to the hospital while he was getting into the car he tripped and landed on his buttocks. Denies any head strike or loss of consciousness. Had multiple episodes. Denies any nausea vomiting or diarrhea. Mentions she has been having shortness of breath/dyspnea on exertion. Denies any chest pain or palpitations. Denies any recent travel or sick contacts. Review of all other systems is negative except mentioned above ER course: Per ER team patient's exam was nonfocal; CT abdomen showed choledocholithiasis; on labs noted to have elevated liver enzymes. Also patient is COVID-19 positive. Saturating 97% on room air. Admitted to the hospital for further management. Patient has potassium of 3.1. Repleted. [facility] Medical History Anemia Atrial fibrillation Congestive heart failure Impaired fasting glucose Microalbuminuria Obesity QT prolongation Sleep disorder Stage 3 chronic kidney disease Type 2 diabetes mellitus Vitamin D deficiency Social History Alcohol intake: never Patient Tobacco Use Status: Never used Tobacco Use of substances other than those prescribed or required for medical reasons: No Advance Directives: No Advance Directives Information Provided: No Current occupation: Right handed Meds Allergies Allergy/AdvReac Type Severity Reaction Status Date / Time No Known Allergies Allergy Unverified 10/25/19 17:24 Active Medications: Current Medications Sodium Chloride (0.9 % Sodium Chloride Flush 3 Ml Syringe) 3 ml IVFLUSH [facility] Home Medications Medication Instructions Recorded Confirmed Last Taken Type amlodipine 10 mg tablet 10 mg PO DAILY 01/07/20 Unknown History aspirin 81 mg tablet,delayed 81 mg PO DAILY 01/07/20 Unknown History release (Adult Low Dose Aspirin) atorvastatin 20 mg tablet 20 mg PO BEDTIME 01/07/20 Unknown History ferrous sulfate 143 mg (45 mg 90 mg PO DAILY tab 01/07/20 Unknown History iron) tablet,extended release furosemide 40 mg tablet 40 mg PO DAILY 01/07/20 Unknown History mupirocin 2 % topical ointment 1 appl TOPICAL BID 01/07/20 Unknown History warfarin 5 mg tablet 5 mg PO DAILY 01/07/20 Unknown History zolpidem 10 mg tablet (Ambien) 10 mg PO BEDTIME PRN 01/07/20 Unknown History bupropion HCl 150 mg tablet,12 hr 150 mg PO 06/04/21 Unknown History sustained-release hydralazine 25 mg tablet 25 mg PO 06/04/21 Unknown History ramelteon 8 mg tablet 8 mg PO BEDTIME 06/04/21 Unknown History sodium zirconium cyclosilicate 10 g PO 06/04/21 Unknown History gram oral powder packet (Lokelma) Physical Exam Vital Signs and Narrative: Vital Signs: Last Vital Signs Temp 98.4 F 06/24/21 03:48 Pulse 77 06/24/21 03:48 Resp 17 06/24/21 03:48 BP 124/61 06/24/21 03:48 Pulse Ox 97 06/24/21 03:48 BMI result Body Mass Index 32.8 Gen: Appears be in no acute distress HEENT: NCAT, Moist mucosa. Neck is supple Pulmonary: Vesicular breath sounds, fair air entry CVS: Normal S1-S2 Abdomen: BS+, Soft, Nontender Extremities: Warm well perfused Neuro: Alert and awake. Grossly nonfocal except left lower extremity limited strength 3/5-attributes to pain in his knee and ankle. Sensations intact. Results Labs CBC and Chem 7: 06/24/21 00:43 06/24/21 00:42 Labs: Laboratory Results - last 24 hr 06/24/21 06/24/21 06/24/21 00:42 00:42 00:42 MCV MCH MCHC RDW Plt Count MPV Immature Gran % (Auto) Neut % (Auto) Lymph % (Auto) [place] % (Auto) Eos % (Auto) Baso % (Auto) Lymph # (Auto) [place] # (Auto) Eos # (Auto) Baso # (Auto) Abs Immat Gran (auto) Absolute Neuts (auto) Absolute Nucleated RBC Nucleated RBC % (auto) PT 33.8 H INR 2.9 H Anion Gap 13 Estim Creat Clear Calc 63.3 Estimated GFR 46 Random Glucose 205 H D Lactic Acid Calcium 8.4 Magnesium 1.8 Total Bilirubin 1.0 Direct Bilirubin 0.7 H GGT 273 H AST 139 H ALT 92 H Alkaline Phosphatase 350 H D Lactate Dehydrogenase 310 H B-Natriuretic Peptide Total Protein 5.9 L Albumin 3.2 L TSH Urine Color Urine Appearance Urine pH Ur Specific Pax Urine Protein Urine Glucose (UA) Urine Ketones Urine Blood Urine Nitrite Ur Leukocyte Esterase Urine RBC Urine WBC Ur Squamous Epith Cells Urine Bacteria Urine Opiates Screen Urine Fentanyl Screen Ur Barbiturates Screen Ur Phencyclidine Scrn Ur Amphetamines Screen U Benzodiazepines Scrn Urine Cocaine Screen U Marijuana (THC) Screen COVID-19 (JUAN) Positive A [employer] See Note 06/24/21 06/24/21 06/24/21 00:42 00:42 00:43 MCV 81.9 MCH 26.1 L MCHC 31.9 RDW 14.6 Plt Count 339 MPV 8.0 L Immature Gran % (Auto) 2.1 H Neut % (Auto) 86.6 H Lymph % (Auto) 5.8 L [place] % (Auto) 4.1 Eos % (Auto) 0.7 Baso % (Auto) 0.7 Lymph # (Auto) 0.3 L [place] # (Auto) 0.2 Eos # (Auto) 0.0 Baso # (Auto) 0.0 Abs Immat Gran (auto) 0.11 H Absolute Neuts (auto) 4.6 Absolute Nucleated RBC 0.000 Nucleated RBC % (auto) 0.0 PT INR Anion Gap Estim Creat Clear Calc Estimated GFR Random Glucose Lactic Acid Calcium Magnesium Total Bilirubin Direct Bilirubin GGT AST ALT Alkaline Phosphatase Lactate Dehydrogenase B-Natriuretic Peptide 233 H Total Protein Albumin TSH 0.67 Urine Color Urine Appearance Urine pH Ur Specific Pax Urine Protein Urine Glucose (UA) Urine Ketones Urine Blood Urine Nitrite Ur Leukocyte Esterase Urine RBC Urine WBC Ur Squamous Epith Cells Urine Bacteria Urine Opiates Screen Urine Fentanyl Screen Ur Barbiturates Screen Ur Phencyclidine Scrn Ur Amphetamines Screen U Benzodiazepines Scrn Urine Cocaine Screen U Marijuana (THC) Screen COVID-19 (JUAN) COVID-19 [employer] 06/24/21 06/24/21 06/24/21 03:14 03:14 03:57 MCV MCH MCHC RDW Plt Count MPV Immature Gran % (Auto) Neut % (Auto) Lymph % (Auto) [place] % (Auto) Eos % (Auto) Baso % (Auto) Lymph # (Auto) [place] # (Auto) Eos # (Auto) Baso # (Auto) Abs Immat Gran (auto) Absolute Neuts (auto) Absolute Nucleated RBC Nucleated RBC % (auto) PT INR Anion Gap Estim Creat Clear Calc Estimated GFR Random Glucose Lactic Acid 1.0 Calcium Magnesium Total Bilirubin Direct Bilirubin GGT AST ALT Alkaline Phosphatase Lactate Dehydrogenase B-Natriuretic Peptide Total Protein Albumin TSH Urine Color YELLOW Urine Appearance CLEAR Urine pH 6.0 Ur Specific Pax 1.015 Urine Protein NEG Urine Glucose (UA) NEG Urine Ketones NEG Urine Blood 1+ H Urine Nitrite NEG Ur Leukocyte Esterase NEG Urine RBC 10-14 H Urine WBC 1-4 Ur Squamous Epith Cells 1+ Urine Bacteria 1+ Urine Opiates Screen Not Detected Urine Fentanyl Screen Not Detected Ur Barbiturates Screen Not Detected Ur Phencyclidine Scrn Not Detected Ur Amphetamines Screen Not Detected U Benzodiazepines Scrn Not Detected Urine Cocaine Screen Not Detected U Marijuana (THC) Screen Not Detected COVID-19 (JUAN) COVID-19 Clin Com Imaging Radiologist's Impressions: Impressions Abdomen/Pelvis CT 06/24/21 02:45 IMPRESSION: Cholelithiasis with no inflammatory changes of the gallbladder. There may be a small stone in the cystic duct. There also appears to be a stone in the distal common bile duct, consistent with choledocholithiasis. There may be up to 3 stones present in the common duct. Nonobstructing bilateral renal calculi. Fleischner guidelines were followed. Assessment and Plan (1) Choledocholithiasis: Status: Acute (2) Type 2 diabetes mellitus: Status: Acute Plan 61-year-old female with a past medical history of hypertension, hyperlipidemia, diabetes, CHF, AFib presented to the hospital with a chief complaint of generalized weakness/falls. Noted to have following Recurrent falls: Likely in setting of generalized weakness from COVID-19. Will also obtain CT head and CT cervical spine. Fall precautions. PT/OT eventually COVID-19 positive: Patient currently saturating 97% on room air. Will obtain CT chest. Id consult for further recommendations. Patient is not COVID-19 vaccinated. Choledocholithiasis/transaminitis: Trend liver enzymes. Gastroenterology consult. Avoid hepatotoxins. Will obtain acute hepatitis panel as well. Recent left forearm/wrist cellulitis: Currently erythema significantly improved. Patient on 7 day course of cephalexin/doxycycline-started on last Tuesday. Will continue Arthritis: Patient receives steroid injections in his knees. Pain control. History of AFib: Rate controlled. Patient on Coumadin. INR therapeutic at 2.9. History of diabetes: Insulin sliding scale. History of hypertension/hyperlipidemia: Continue home amlodipine, aspirin, hold home statin for now History of CHF: Continue home Lasix Patient's home medications will be continued once med rec is done. DVT prophylaxis: Patient of complaint Code status: Full code Quality Stroke Does the patient have a stroke diagnosis?: No VTE Prior VTE?: No VTE Risk Level:: Medical - moderate - high VTE Device Contraindication: Treatment Not Indicated VTE Drug Contraindication: N/A - Med Ordered
[2021-06-24 07:18] LABS: Glucose, Whole Blood 189 mg/dL (60-115)
[2021-06-24] MEDS: cephALEXin 500 MG CAPSULE PO ×2 (07:34→18:27)
--- NOTE | 2021-06-24 07:57 | PC.NURSE ---
Son, Fabio would like to speak with CM regarding pts discharge planning as son(s) both feel it is not ideal to take him back home
--- NOTE | 2021-06-24 10:08 | PHA.MEDREC ---
Pharmacy Consult ? Medication Reconciliation Pharmacy has completed the medication reconciliation. Patient report lisinopril was stopped due to high potassium. Was started on Lokelma but no longer taking. He is also current holding his ferrous sulfate. Saumya Gonzalez, PharmD
[2021-06-24 12:05] LABS: Glucose, Whole Blood 140 mg/dL (60-115)
--- NOTE | 2021-06-24 12:51 | MHC.CM.PN ---
pt in ed overflow pt is covid positive called and spoke with both sons who explion that pt lives on 3rd floor hew had no servceis prior to admission pt had just been at pcp who feels pt will need rehab we discusse the need for a pt eval and bed search process pt is not vax dc plan is str
--- NOTE | 2021-06-24 13:20 | PC.NURSE ---
Pt A&Ox4, no complaints of pain, admits to multiple falls, but able to ambulate with encouragement and walker at this time. NSR on monitor, LCA, no gi/gu complaints at this time, bañuelos is in place. Call nieto within reach, will continue to monitor.
--- NOTE | 2021-06-24 16:18 | PM.EVENT ---
Event Note Date of Service: 06/24/21 Event Note: Chart reviewed patient examined. Agree with history and physical as outlined. No somewhat improved. Hopeful discharge in a.m.
[2021-06-24 17:26] LABS: Glucose, Whole Blood 146 mg/dL (60-115)
[2021-06-24] MEDS: Furosemide 40 MG TABLET PO (18:27)
[2021-06-24] MEDS: Acetaminophen 325 MG TABLET 650 MG PO (19:35)
[2021-06-24] MEDS: Warfarin Sodium 3 MG TABLET PO (21:10)
[2021-06-24] MEDS: Atorvastatin Calcium 20 MG TABLET PO (21:22)
[2021-06-24 21:26] LABS: Glucose, Whole Blood 107 mg/dL (60-115)
[2021-06-24] MEDS: 0.9 % Sodium Chloride Flush 3 ML SYRINGE IVFLUSH (23:27)
[2021-06-25 03:45] VITALS: BP 128/77; PULSE 67; RESP 20; TEMP 36.6; O2SAT 95
[2021-06-25] MEDS: cephALEXin 500 MG CAPSULE PO ×2 (05:35→18:33)
[2021-06-25 07:10] LABS: Glucose, Whole Blood 96 mg/dL (60-115)
[2021-06-25 07:36] LABS: INTERNATIONAL NORM RATIO 3.4 (0.9-1.1); Prothrombin Time 39.8 SEC (9.9-13.0)
[2021-06-25 07:42] VITALS: BP 120/63; PULSE 89; RESP 20; TEMP 36.7; O2SAT 98
[2021-06-25] MEDS: hydrALAZINE HCl 25 MG TABLET PO (08:55)
[2021-06-25] MEDS: Aspirin Enteric Coated 81 MG TABLET.DR PO (08:55)
[2021-06-25] MEDS: 0.9 % Sodium Chloride Flush 3 ML SYRINGE IVFLUSH ×2 (08:55→16:06)
[2021-06-25] MEDS: Acetaminophen 325 MG TABLET 650 MG PO (08:55)
[2021-06-25] MEDS: Furosemide 40 MG TABLET PO ×2 (08:55→17:01)
[2021-06-25] MEDS: buPROPion HCl XL 300 MG TAB.ER.24H PO (08:55)
[2021-06-25] MEDS: amLODIPine Besylate 10 MG TABLET PO (08:55)
[2021-06-25] MEDS: Metoprolol Tartrate 100 MG TABLET PO ×2 (08:55→20:13)
[2021-06-25 11:00] LABS: Glucose, Whole Blood 157 mg/dL (60-115)
[2021-06-25 11:06] LABS: MANUAL DIFF FLAG NO
[2021-06-25 11:13] LABS: Basophils Percent Auto 0.4 % (0-2); Eosinophils Absolute Auto 0.1 X10*3/uL (0.0-0.4); Eosinophils Percent Auto 1.1 % (0-4); Hematocrit 29.7 % (42.0-52.0); Hemoglobin 9.5 g/dl (14.0-18.0); Imm Gran Abs Auto 0.11 X10*3/uL (0.00-0.03); Imm Gran Pct Auto 1.4 % (0.0-0.4); Lymphocytes Percent Auto 13.4 % (20-40); Mean Corpuscular Hemoglobin 26.4 pg (27.0-33.0); Mean Corpuscular Volume 82.5 fL (80.0-98.0); Mean Platelet Volume 8.4 fL (9.4-12.4); Monocytes Absolute Auto 0.7 X10*3/uL (0.1-1.2); Monocytes Percent Auto 8.7 % (2-11); Neutrophils Absolute Auto 5.7 x10*3/uL (2.0-8.3); Platelet Count 411 X10*3/uL (160-400); Red Cell Distribution Width 14.4 % (11.0-16.0); White Blood Count 7.6 X10*3/uL (4.8-10.8)
[2021-06-25 11:26] LABS: Alanine Aminotransferase 129 U/L (0-40); Alkaline Phosphatase 471 U/L (39-117); Anion Gap 14 (12-20); Aspartate Amino Transferase 135 U/L (5-37); Bilirubin Total 0.5 mg/dL (0.0-1.0); Blood Urea Nitrogen 29 mg/dL (9-16); Calcium 8.2 mg/dL (8.4-10.2); Carbon Dioxide 30 mmol/L (22-29); Chloride 98 mmol/L (96-108); Creatinine Clr Calc Pharmacy 69.2; Estimated Glomerular Filt Rate 44; Glucose Fasting 177 mg/dL (60-99); Potassium 2.7 mmol/L (3.3-5.1); Sodium 139 mmol/L (135-145); Total Protein 5.4 g/dL (6.5-8.0)
[2021-06-25 11:29] VITALS: BP 124/70; PULSE 67; RESP 20; TEMP 36.8; O2SAT 95
[2021-06-25] MEDS: Insulin Lispro 100 UNIT/ML 3 ML VIAL SUBCUT (11:50)
--- NOTE | 2021-06-25 14:05 | HO.PM.IMPN ---
Subjective Subjective Date of Service: 06/25/21 Interval History: No acute events overnight. Monitor showing a flutter with multiple PVCs Review of Systems Denies chest pain Denies shortness of breath Denies nausea vomiting diarrhea Denies fever chills Physical Exam Vital Signs: Vital Signs: Last Vital Signs Temp 98.2 F 06/25/21 11:29 Pulse 67 06/25/21 11:29 Resp 20 06/25/21 11:29 BP 124/70 06/25/21 11:29 Pulse Ox 95 06/25/21 11:29 BMI result Body Mass Index 42.4 Const: Other: Awake alert no acute distress Resp: Other: Clear to auscultation bilaterally no rales rhonchi or wheezes Cardio: Other: No S4; positive S1-S2; no S3 murmurs or gallops GI: Other: Soft nontender nondistended normoactive bowel sounds Extrem: Other: No edema Objective Data Active Medications Acetaminophen (Acetaminophen 325 Mg Tablet) 650 mg PO Q6H PRN PRN Reason: Headache Last Admin: 06/25/21 08:55 Dose: 650 mg Documented by: NILDA Amlodipine Besylate (Amlodipine Besylate 10 Mg Tablet) 10 mg PO DAILY [facility]; Protocol Last Admin: 06/25/21 08:55 Dose: 10 mg Documented by: NILDA Aspirin (Aspirin Enteric Coated 81 Mg Tablet.) 81 mg PO DAILY [facility] Last Admin: 06/25/21 08:55 Dose: 81 mg Documented by: NILDA Atorvastatin Calcium (Atorvastatin Calcium 20 Mg Tablet) 20 mg PO BEDTIME [facility] Last Admin: 06/24/21 21:22 Dose: 20 mg Documented by: JOAO Bupropion HCl (Bupropion Hcl Xl 300 Mg Tab.Er.24h) 300 mg PO DAILY [facility] Last Admin: 06/25/21 08:55 Dose: 300 mg Documented by: NILDA Cephalexin HCl (Cephalexin 500 Mg Capsule) 500 mg PO Q12H [facility] Last Admin: 06/25/21 05:35 Dose: 500 mg Documented by: SONIA Dextrose (Dextrose 50 % 25 Gm/50 Ml Syringe) 25 gm IVPUSH Q15M PRN; Protocol PRN Reason: per Hypoglycemia Standing Ord. Doxycycline Hyclate (Doxycycline Hyclate 100 Mg Tablet) 100 mg PO Q12H [facility] Last Admin: 06/25/21 05:35 Dose: 100 mg Documented by: SONIA Furosemide (Furosemide 40 Mg Tablet) 40 mg PO BIDWM [facility]; Protocol Last Admin: 06/25/21 08:55 Dose: 40 mg Documented by: NILDA Glucose (Glucose Gel 15 Gm Gel..Gram.) 15 gm PO Q15M PRN; Protocol PRN Reason: per Hypoglycemia Standing Ord. Hydralazine HCl (Hydralazine Hcl 25 Mg Tablet) 25 mg PO BID [facility]; Protocol Last Admin: 06/25/21 08:55 Dose: 25 mg Documented by: NILDA Insulin Human Lispro (Insulin Lispro 100 Unit/Ml 3 Ml Vial) 0 unit SUBCUT QIDACHS [facility]; Protocol Last Admin: 06/25/21 11:50 Dose: 2 unit Documented by: NILDA Metoprolol Tartrate (Metoprolol Tartrate 100 Mg Tablet) 100 mg PO BID [facility]; Protocol Last Admin: 06/25/21 08:55 Dose: 100 mg Documented by: NILDA Non-Formulary Medication (Ramelteon) 8 mg PO BEDTIME [facility] Pharmacy Consult (Consult Rx Perform Med Rec) 1 each MISCELLANE ONCE PRN PRN Reason: Consult order Sodium Chloride (0.9 % Sodium Chloride Flush 3 Ml Syringe) 3 ml IVFLUSH QSHIFT [facility] Last Admin: 06/25/21 08:55 Dose: 3 ml Documented by: NILDA Warfarin Sodium (Warfarin Sodium 3 Mg Tablet) 3 mg PO DAILY@1800 [facility] Last Admin: 06/24/21 21:10 Dose: 3 mg Documented by: JOAO Zolpidem Tartrate (Zolpidem Tartrate 5 Mg Tablet) 10 mg PO BEDTIME PRN PRN Reason: Insomnia Labs CBC & Chem 7: 06/25/21 10:45 06/25/21 10:45 Labs: Laboratory Results - last 24 hr 06/24/21 06/24/21 06/25/21 17:23 21:24 07:05 MCV MCH MCHC RDW Plt Count MPV Immature Gran % (Auto) Neut % (Auto) Lymph % (Auto) [place] % (Auto) Eos % (Auto) Baso % (Auto) Lymph # (Auto) [place] # (Auto) Eos # (Auto) Baso # (Auto) Abs Immat Gran (auto) Absolute Neuts (auto) Absolute Nucleated RBC Nucleated RBC % (auto) PT 39.8 H INR 3.4 H Anion Gap Estim Creat Clear Calc Estimated GFR POC Glucose 146 H 107 Fasting Glucose Calcium Total Bilirubin AST ALT Alkaline Phosphatase Total Protein Albumin 06/25/21 06/25/21 06/25/21 07:06 10:45 10:45 MCV 82.5 MCH 26.4 L MCHC 32.0 RDW 14.4 Plt Count 411 H MPV 8.4 L Immature Gran % (Auto) 1.4 H Neut % (Auto) 75.0 H Lymph % (Auto) 13.4 L [place] % (Auto) 8.7 Eos % (Auto) 1.1 Baso % (Auto) 0.4 Lymph # (Auto) 1.0 L [place] # (Auto) 0.7 Eos # (Auto) 0.1 Baso # (Auto) 0.0 Abs Immat Gran (auto) 0.11 H Absolute Neuts (auto) 5.7 Absolute Nucleated RBC 0.000 Nucleated RBC % (auto) 0.0 PT INR Anion Gap 14 Estim Creat Clear Calc 69.2 Estimated GFR 44 POC Glucose 96 Fasting Glucose 177 H Calcium 8.2 L Total Bilirubin 0.5 AST 135 H ALT 129 H Alkaline Phosphatase 471 H D Total Protein 5.4 L Albumin 3.0 L 06/25/21 10:55 MCV MCH MCHC RDW Plt Count MPV Immature Gran % (Auto) Neut % (Auto) Lymph % (Auto) [place] % (Auto) Eos % (Auto) Baso % (Auto) Lymph # (Auto) [place] # (Auto) Eos # (Auto) Baso # (Auto) Abs Immat Gran (auto) Absolute Neuts (auto) Absolute Nucleated RBC Nucleated RBC % (auto) PT INR Anion Gap Estim Creat Clear Calc Estimated GFR POC Glucose 157 H Fasting Glucose Calcium Total Bilirubin AST ALT Alkaline Phosphatase Total Protein Albumin Microbiology Microbiology Results: Microbiology 06/24/21 03:57 Blood Culture - Preliminary Blood - Venous No growth after 24 hours. 06/24/21 03:57 Blood Culture - Preliminary Blood - Venous No growth after 24 hours. Assessment and Plan (1) Weakness: Status: Acute (2) Choledocholithiasis: Status: Acute (3) Atrial fibrillation: Status: Acute (4) Type 2 diabetes mellitus: Status: Acute Plan 61-year-old female with a past medical history of hypertension, hyperlipidemia, diabetes, CHF, AFib presented to the hospital with a chief complaint of generalized weakness/falls; found to have mild elevation of his transaminases; ventricular response rate acceptable 1. Weakness (multifactorial with COVID-19) -continue supportive therapies -PT consult 2. Choledocholithiasis/transaminitis -enzymes trending upward -GI to evaluate; ultrasound reviewed no acute ductal dilatation -continue to trend LFTs 3. Atrial fibrillation -acceptable rate control on current therapies -adjust as indicated -INR therapeutic 4. Diabetes type 2 -acceptable control on current therapies -continue with list pro correctional scale -ADA diet Coumadin Full code Requires ongoing hospitalization to trend liver function test and decide intervention Quality Stroke Does the patient have a stroke diagnosis?: No VTE Prior VTE?: No VTE Risk Level:: Medical - moderate - high VTE Device Contraindication: Treatment Not Indicated VTE Drug Contraindication: N/A - Med Ordered
--- NOTE | 2021-06-25 15:00 | PM.GICN ---
History of Present Illness Data of Consult Service Date: 06/25/21 Requesting physician: Lincoln Bedolla Primary Care Provider: Jennifer Senior MD HPI Reason for consult: choledocholithiasis 61-year-old male with hx of hypertension, hyperlipidemia, diabetes, CAD, CHF, AFib on Coumadin, insomnia, and depression who I am seeing for assessment of choledocholithiasis. Patient presented to hospital with few days of fever, malaise, weakness and sore throat/ he checked COVID test at home and was negative. He was getting worse with initially dry cough but now productive (not sure what color). He came to ED and was found to be COVID pos. also admitted to increased SOB but no chest pain. He does have a dull ache 2/10 in severity across the top part of the abdomen, with no radiation to the back. Denies worse with food, maybe worse with coughing. No nausea or vomiting. He was also found to have left arm cellulitis for which he is getting treatment and also admitted to a fall without LOC day of presentation to the ED and fell on his backside. CT abdomen and US suggestive of gallstones and choledocholithiasis; No biliary dilation noted labs with elevated liver enzymes but normal bili. Review of Systems Review of Systems: Constitutional : No Weight loss, + Fever, + Chills ENT/Mouth : + sore throat, No Rhinorrhea Eyes: No Swelling, No Redness Cardiovascular : No Chest Pain, No SOB, No Edema Respiratory : + Cough, + Sputum, No Wheezing Gastrointestinal : see HPI Genitourinary : NO Dysuria, No Urinary Frequency, No Hematuria, No Urgency Musculoskeletal : No joint pain, No Myalgias, No Joint Swelling Skin : No Skin Lesions, No rash Neuro : No Weakness, No Numbness, No Dizziness, No Headache Psych : No Anxiety/Panic, No Depression Heme/Lymph: No Bruising, No Lymphadenopathy Endocrine : No Polyuria, No Polydipsia All other systems reviewed and are negative. [facility] Past Medical History Medical History (Updated 06/25/21 @ 15:10 by Arcadio Beltre MD) Anemia Atrial fibrillation Congestive heart failure Impaired fasting glucose Microalbuminuria Obesity QT prolongation Sleep disorder Stage 3 chronic kidney disease Type 2 diabetes mellitus Vitamin D deficiency Family History Pertinent family history: No FH of gallstones, liver problems Social History Social History Household Members: None Housing: Apartment Housing Other:: 3rd floor walk up Do you presently have visiting nurse or other home services: Yes (X1 weekly) Alcohol intake: never Patient Tobacco Use Status: Never used Tobacco service: No Current occupation: Right handed Meds Allergies Allergy/AdvReac Type Severity Reaction Status Date / Time No Known Allergies Allergy Unverified 10/25/19 17:24 Active Medications: Current Medications Acetaminophen (Acetaminophen 325 Mg Tablet) 650 mg PO Q6H PRN PRN Reason: Headache Last Admin: 06/25/21 08:55 Dose: 650 mg Documented by: Amlodipine Besylate (Amlodipine Besylate 10 Mg Tablet) 10 mg PO DAILY [facility]; Protocol Last Admin: 06/25/21 08:55 Dose: 10 mg Documented by: Aspirin (Aspirin Enteric Coated 81 Mg Tablet.) 81 mg PO DAILY [facility] Last Admin: 06/25/21 08:55 Dose: 81 mg Documented by: Atorvastatin Calcium (Atorvastatin Calcium 20 Mg Tablet) 20 mg PO BEDTIME [facility] Last Admin: 06/24/21 21:22 Dose: 20 mg Documented by: Bupropion HCl (Bupropion Hcl Xl 300 Mg Tab.Er.24h) 300 mg PO DAILY [facility] Last Admin: 06/25/21 08:55 Dose: 300 mg Documented by: Cephalexin HCl (Cephalexin 500 Mg Capsule) 500 mg PO Q12H [facility] Last Admin: 06/25/21 05:35 Dose: 500 mg Documented by: Dextrose (Dextrose 50 % 25 Gm/50 Ml Syringe) 25 gm IVPUSH Q15M PRN; Protocol PRN Reason: per Hypoglycemia Standing Ord. Doxycycline Hyclate (Doxycycline Hyclate 100 Mg Tablet) 100 mg PO Q12H [facility] Last Admin: 06/25/21 05:35 Dose: 100 mg Documented by: Furosemide (Furosemide 40 Mg Tablet) 40 mg PO BIDWM [facility]; Protocol Last Admin: 06/25/21 08:55 Dose: 40 mg Documented by: Glucose (Glucose Gel 15 Gm Gel..Gram.) 15 gm PO Q15M PRN; Protocol PRN Reason: per Hypoglycemia Standing Ord. Hydralazine HCl (Hydralazine Hcl 25 Mg Tablet) 25 mg PO BID [facility]; Protocol Last Admin: 06/25/21 08:55 Dose: 25 mg Documented by: Sodium Chloride (Ns) 1,000 mls @ 100 mls/hr IVCONT .Q10H [facility] Insulin Human Lispro (Insulin Lispro 100 Unit/Ml 3 Ml Vial) 0 unit SUBCUT QIDACHS [facility]; Protocol Last Admin: 06/25/21 11:50 Dose: 2 unit Documented by: Metoprolol Tartrate (Metoprolol Tartrate 100 Mg Tablet) 100 mg PO BID [facility]; Protocol Last Admin: 06/25/21 08:55 Dose: 100 mg Documented by: Non-Formulary Medication (Ramelteon) 8 mg PO BEDTIME [facility] Pharmacy Consult (Consult Rx Perform Med Rec) 1 each MISCELLANE ONCE PRN PRN Reason: Consult order Sodium Chloride (0.9 % Sodium Chloride Flush 3 Ml Syringe) 3 ml IVFLUSH QSHIFT [facility] Last Admin: 06/25/21 08:55 Dose: 3 ml Documented by: Warfarin Sodium (Warfarin Sodium 3 Mg Tablet) 3 mg PO DAILY@1800 [facility] Last Admin: 06/24/21 21:10 Dose: 3 mg Documented by: Zolpidem Tartrate (Zolpidem Tartrate 5 Mg Tablet) 10 mg PO BEDTIME PRN PRN Reason: Insomnia Home Medications Medication Instructions Recorded Confirmed Last Taken Type amlodipine 10 mg tablet 10 mg PO DAILY 01/07/20 06/24/21 Unknown History aspirin 81 mg tablet,delayed 81 mg PO DAILY 01/07/20 06/24/21 Unknown History release (Adult Low Dose Aspirin) atorvastatin 20 mg tablet 20 mg PO BEDTIME 01/07/20 06/24/21 Unknown History furosemide 40 mg tablet 40 mg PO BID 01/07/20 06/24/21 Unknown History zolpidem 10 mg tablet (Ambien) 10 mg PO BEDTIME PRN 01/07/20 06/24/21 Unknown History bupropion HCl 150 mg tablet,12 hr 150 mg PO BID 06/04/21 06/24/21 Unknown History sustained-release hydralazine 25 mg tablet 25 mg PO BID 06/04/21 06/24/21 Unknown History ramelteon 8 mg tablet 8 mg PO BEDTIME 06/04/21 06/24/21 Unknown History melatonin 5 mg tablet 2 tab PO BEDTIME 06/24/21 06/24/21 Unknown History metoprolol tartrate 100 mg tablet 1 tab PO BID 06/24/21 06/24/21 Unknown History warfarin 3 mg tablet 1 tab PO DAILY 06/24/21 06/24/21 Unknown History Physical Exam Vital Signs: Vital Signs: Last Vital Signs Temp 98.2 F 06/25/21 11:29 Pulse 67 06/25/21 11:29 Resp 20 06/25/21 11:29 BP 124/70 06/25/21 11:29 Pulse Ox 95 06/25/21 11:29 BMI result Body Mass Index 42.4 EXAM: GENERAL: The patient is obese, not cyanosed, talking easily VITAL SIGNS:see workflow HEENT: Nonicteric sclerae, PERRLA, EOMI. Oropharynx clear. Moist mucous membranes. Conjunctivae appear well perfused. No thyroid mass. CHEST: Chest wall is nontender. HEART: Regular rate and rhythm without murmurs. LUNGS: Clear to auscultation bilaterally. ABDOMEN: Soft, positive bowel sounds, tender all over upper abdo and lower chest, no organomegaly.no flank tenderness SKIN: No rash, no excessive bruising, petechiae, or purpura. NEUROLOGIC: Cranial nerves II-XII intact without motor/sensory deficit. Pscyh--nml affect Results Labs CBC & Chem 7: 06/25/21 10:45 06/25/21 10:45 Labs: Short CBC 06/24/21 06/25/21 06/25/21 Range/Units 00:42 10:45 10:45 WBC 7.6 (4.8-10.8) X10*3/uL Hgb 9.5 L (14.0-18.0) g/dl Hct 29.7 L (42.0-52.0) % Plt Count 411 H (160-400) X10*3/uL Creatinine 1.54 H 1.61 H (0.5-1.4) mg/dL Total Bilirubin 1.0 0.5 (0.0-1.0) mg/dL Alkaline Phosphatase 350 H D 471 H D (39-117) U/L BMP 06/25/21 10:45 Sodium 139 Potassium 2.7 L Chloride 98 Carbon Dioxide 30 H BUN 29 H Creatinine 1.61 H Calcium 8.2 L Liver Function 06/25/21 Range/Units 10:45 Total Bilirubin 0.5 (0.0-1.0) mg/dL AST 135 H (5-37) U/L ALT 129 H (0-40) U/L Alkaline Phosphatase 471 H D (39-117) U/L Albumin 3.0 L (3.5-5.0) g/dL Microbiology Microbiology Results: Microbiology 06/24/21 03:57 Blood - Venous Blood Culture - Preliminary No growth after 24 hours. 06/24/21 03:57 Blood - Venous Blood Culture - Preliminary No growth after 24 hours. Assessment and Plan (1) Choledocholithiasis: Status: Acute (2) Abnormal LFTs: Status: Acute Plan 1/ 61 yr old m with acute covid infection, incidentally found to have gallstones with possibly few stones in CBD but no ductal dilation. Pain seems to be more musculoskeletal and related to coughing than visceral in origin. Abn LFT could be from COVID as well vs from gallstones. PLAN: 1/ Would trend LFT< if worsening or increased abdominal pain then MRCP 2/ If he improves but LFT remain elevated and concern for choledocholithiasis remains then would would do o/p ERCP in 7-10 days, he would need to preferably stop coumadin for 3 d before hand as well Procedures Date of Service Date of Service: 06/25/21
[2021-06-25 15:44] VITALS: BP 119/78; PULSE 75; RESP 18; TEMP 36.6; O2SAT 96
[2021-06-25] MEDS: 0.9 % Sodium Chloride 1,000 ML 100 ML IVCONT (16:01)
[2021-06-25 16:34] LABS: Glucose, Whole Blood 90 mg/dL (60-115)
[2021-06-25] MEDS: oxyCODONE HCl Immed Release 5 MG TABLET PO (18:33)
[2021-06-25 20:00] VITALS: BP 100/74; PULSE 87; RESP 18; TEMP 36.2; O2SAT 97
[2021-06-25 20:10] LABS: Glucose, Whole Blood 121 mg/dL (60-115)
[2021-06-25] MEDS: Atorvastatin Calcium 20 MG TABLET PO (20:13)
[2021-06-26] VITALS (7 sets, daily range): BP systolic 114–135; BP diastolic 60–74; PULSE 61–105; RESP 16–18; TEMP 36.3–37.3; O2SAT 94–97
--- NOTE | 2021-06-26 02:43 | PC.NURSE ---
Addendum entered by Jessica Hill RN 06/26/21 06:23: Patient voided another 400ml overnight, bladder scan this morning shows 217ml but no urge to void at this time. Original Note: Patient had bañuelos cath removed on days at approx. 1430. Pt voided 400ml at 2130 and reports that he feels he still needs to void. Pt bladder scanned for 181ml. Will monitor.
[2021-06-26] MEDS: cephALEXin 500 MG CAPSULE PO ×2 (05:48→18:06)
[2021-06-26] MEDS: oxyCODONE HCl Immed Release 5 MG TABLET PO ×2 (05:48→21:17)
[2021-06-26] MEDS: 0.9 % Sodium Chloride 1,000 ML 100 ML IVCONT ×2 (05:49→18:06)
[2021-06-26 07:04] LABS: Alanine Aminotransferase 88 U/L (0-40); Albumin Level 2.9 g/dL (3.5-5.0); Alkaline Phosphatase 375 U/L (39-117); Anion Gap 12 (12-20); Aspartate Amino Transferase 65 U/L (5-37); Bilirubin Total 0.5 mg/dL (0.0-1.0); Blood Urea Nitrogen 27 mg/dL (9-16); Calcium 7.9 mg/dL (8.4-10.2); Carbon Dioxide 31 mmol/L (22-29); Chloride 99 mmol/L (96-108); Creatinine Clr Calc Pharmacy 74.8; Estimated Glomerular Filt Rate 48; Glucose Random 90 mg/dL (60-115); Potassium 2.7 mmol/L (3.3-5.1); Sodium 139 mmol/L (135-145); Total Protein 5.2 g/dL (6.5-8.0)
[2021-06-26 07:05] LABS: Mean Corpuscular Volume 83.8 fL (80.0-98.0); Mean Platelet Volume 8.6 fL (9.4-12.4); Platelet Count 396 X10*3/uL (160-400); Red Blood Count 3.46 X10*6/uL (4.60-5.80); Red Cell Distribution Width 14.7 % (11.0-16.0)
[2021-06-26 07:24] LABS: Glucose, Whole Blood 87 mg/dL (60-115)
[2021-06-26 07:50] LABS: Magnesium 1.6 mg/dL (1.6-2.6)
--- NOTE | 2021-06-26 07:55 | HO.PM.IMPN ---
Subjective Subjective Date of Service: 06/26/21 Interval History: choledocholithiasis Review of Systems still has abd pain Physical Exam Vital Signs: Vital Signs: Last Vital Signs Temp 98.4 F 06/26/21 07:13 Pulse 78 06/26/21 07:13 Resp 16 06/26/21 07:13 BP 131/69 06/26/21 07:13 Pulse Ox 94 06/26/21 07:13 BMI result Body Mass Index 42.4 Appearance: Alert.? Oriented X3.? not in distress.? cvs: rrr, [id number] , no murmur res: diminshed abd: no rebound or guarding,epigastric discomfort similar to yesterday, bs present. ext pulses present , no cyanosis . neuro: axo3 , nonfocal. Objective Data Active Medications Acetaminophen (Acetaminophen 325 Mg Tablet) 650 mg PO Q6H PRN PRN Reason: Headache Last Admin: 06/25/21 08:55 Dose: 650 mg Documented by: NILDA Amlodipine Besylate (Amlodipine Besylate 10 Mg Tablet) 10 mg PO DAILY [facility]; Protocol Last Admin: 06/25/21 08:55 Dose: 10 mg Documented by: NILDA Aspirin (Aspirin Enteric Coated 81 Mg Tablet.) 81 mg PO DAILY [facility] Last Admin: 06/25/21 08:55 Dose: 81 mg Documented by: NILDA Atorvastatin Calcium (Atorvastatin Calcium 20 Mg Tablet) 20 mg PO BEDTIME [facility] Last Admin: 06/25/21 20:13 Dose: 20 mg Documented by: SONIA Bupropion HCl (Bupropion Hcl Xl 300 Mg Tab.Er.24h) 300 mg PO DAILY [facility] Last Admin: 06/25/21 08:55 Dose: 300 mg Documented by: NILDA Cephalexin HCl (Cephalexin 500 Mg Capsule) 500 mg PO Q12H [facility] Last Admin: 06/26/21 05:48 Dose: 500 mg Documented by: SONIA Dextrose (Dextrose 50 % 25 Gm/50 Ml Syringe) 25 gm IVPUSH Q15M PRN; Protocol PRN Reason: per Hypoglycemia Standing Ord. Doxycycline Hyclate (Doxycycline Hyclate 100 Mg Tablet) 100 mg PO Q12H [facility] Last Admin: 06/26/21 05:48 Dose: 100 mg Documented by: SONIA Furosemide (Furosemide 40 Mg Tablet) 40 mg PO BIDWM [facility]; Protocol Last Admin: 06/25/21 17:01 Dose: 40 mg Documented by: NILDA Glucose (Glucose Gel 15 Gm Gel..Gram.) 15 gm PO Q15M PRN; Protocol PRN Reason: per Hypoglycemia Standing Ord. Hydralazine HCl (Hydralazine Hcl 25 Mg Tablet) 25 mg PO BID [facility]; Protocol Last Admin: 06/25/21 20:13 Dose: Not Given Documented by: SONIA Non-Admin Reason: Bp soft Sodium Chloride (Ns) 1,000 mls @ 100 mls/hr IVCONT .Q10H [facility] Last Admin: 06/26/21 05:49 Dose: 100 mls/hr Documented by: SONIA Potassium Chloride () 10 meq in 100 mls @ 100 mls/hr IV Q1H [facility] Stop: 06/26/21 09:29 Insulin Human Lispro (Insulin Lispro 100 Unit/Ml 3 Ml Vial) 0 unit SUBCUT QIDACHS [facility]; Protocol Last Admin: 06/26/21 07:54 Dose: Not Given Documented by: AMY Non-Admin Reason: No Insulin Coverage Metoprolol Tartrate (Metoprolol Tartrate 100 Mg Tablet) 100 mg PO BID [facility]; Protocol Last Admin: 06/25/21 20:13 Dose: 100 mg Documented by: SONIA Non-Formulary Medication (Ramelteon) 8 mg PO BEDTIME [facility] Oxycodone HCl (Oxycodone Hcl Immed Release 5 Mg Tablet) 5 mg PO Q6H PRN PRN Reason: Pain, Severe (Pain Scale 7-10) Last Admin: 06/26/21 05:48 Dose: 5 mg Documented by: SONIA Pharmacy Consult (Consult Rx Perform Med Rec) 1 each MISCELLANE ONCE PRN PRN Reason: Consult order Sodium Chloride (0.9 % Sodium Chloride Flush 3 Ml Syringe) 3 ml IVFLUSH QSHIFT [facility] Last Admin: 06/25/21 20:14 Dose: Not Given Documented by: SONIA Non-Admin Reason: IV Running Warfarin Sodium (Warfarin Sodium 3 Mg Tablet) 3 mg PO DAILY@1800 [facility] Last Admin: 06/24/21 21:10 Dose: 3 mg Documented by: JOAO Zolpidem Tartrate (Zolpidem Tartrate 5 Mg Tablet) 10 mg PO BEDTIME PRN PRN Reason: Insomnia Labs CBC & Chem 7: 06/26/21 06:18 06/26/21 06:18 Labs: Laboratory Results - last 24 hr 06/25/21 06/25/21 06/25/21 10:45 10:45 10:55 MCV 82.5 MCH 26.4 L MCHC 32.0 RDW 14.4 Plt Count 411 H MPV 8.4 L Immature Gran % (Auto) 1.4 H Neut % (Auto) 75.0 H Lymph % (Auto) 13.4 L [place] % (Auto) 8.7 Eos % (Auto) 1.1 Baso % (Auto) 0.4 Lymph # (Auto) 1.0 L [place] # (Auto) 0.7 Eos # (Auto) 0.1 Baso # (Auto) 0.0 Abs Immat Gran (auto) 0.11 H Absolute Neuts (auto) 5.7 Absolute Nucleated RBC 0.000 Nucleated RBC % (auto) 0.0 Anion Gap 14 Estim Creat Clear Calc 69.2 Estimated GFR 44 POC Glucose 157 H Random Glucose Fasting Glucose 177 H Calcium 8.2 L Magnesium Total Bilirubin 0.5 AST 135 H ALT 129 H Alkaline Phosphatase 471 H D Total Protein 5.4 L Albumin 3.0 L 06/25/21 06/25/21 06/26/21 16:24 20:08 06:18 MCV 83.8 MCH 26.0 L MCHC 31.0 RDW 14.7 Plt Count 396 MPV 8.6 L Immature Gran % (Auto) Neut % (Auto) Lymph % (Auto) [place] % (Auto) Eos % (Auto) Baso % (Auto) Lymph # (Auto) [place] # (Auto) Eos # (Auto) Baso # (Auto) Abs Immat Gran (auto) Absolute Neuts (auto) Absolute Nucleated RBC 0.000 Nucleated RBC % (auto) 0.0 Anion Gap Estim Creat Clear Calc Estimated GFR POC Glucose 90 121 H Random Glucose Fasting Glucose Calcium Magnesium Total Bilirubin AST ALT Alkaline Phosphatase Total Protein Albumin 06/26/21 06/26/21 06:18 07:17 MCV MCH MCHC RDW Plt Count MPV Immature Gran % (Auto) Neut % (Auto) Lymph % (Auto) [place] % (Auto) Eos % (Auto) Baso % (Auto) Lymph # (Auto) [place] # (Auto) Eos # (Auto) Baso # (Auto) Abs Immat Gran (auto) Absolute Neuts (auto) Absolute Nucleated RBC Nucleated RBC % (auto) Anion Gap 12 Estim Creat Clear Calc 74.8 Estimated GFR 48 POC Glucose 87 Random Glucose 90 D Fasting Glucose Calcium 7.9 L Magnesium 1.6 Total Bilirubin 0.5 AST 65 H ALT 88 H Alkaline Phosphatase 375 H D Total Protein 5.2 L Albumin 2.9 L Microbiology Microbiology Results: Microbiology 06/24/21 03:57 Blood Culture - Preliminary Blood - Venous No growth after 48 hours. 06/24/21 03:57 Blood Culture - Preliminary Blood - Venous No growth after 48 hours. Assessment and Plan (1) Abnormal LFTs: Status: Acute Plan 61-year-old female with a past medical history of hypertension, hyperlipidemia, diabetes, CHF, AFib presented to the hospital with a chief complaint of generalized weakness/falls; found to have mild elevation of his transaminases; ventricular response rate acceptable 1. Weakness possible -multifactorial with COVID-19) -continue supportive therapies -PT consult 2. Choledocholithiasis/transaminitis -enzymes trending upward -GI to evaluate; ultrasound reviewed no acute ductal dilatation -continue to trend LFTs-trending down but still has apin GI recommended MRCP which is added . 3. Atrial fibrillation -acceptable rate control on current therapies -adjust as indicated -INR supratherapeutic, hold warfarin. 4. Diabetes type 2: Fingersticks are running between 100 Adjusted sliding scale. -ADA diet Coumadin Full code Quality Stroke Does the patient have a stroke diagnosis?: No VTE Prior VTE?: No VTE Risk Level:: Medical - moderate - high VTE Device Contraindication: Treatment Not Indicated VTE Drug Contraindication: N/A - Med Ordered
[2021-06-26] MEDS: Potassium Chloride Packet 20 MEQ PACKET 40 MEQ PO (08:48)
[2021-06-26] MEDS: Furosemide 40 MG TABLET PO ×2 (08:49→18:06)
[2021-06-26] MEDS: Metoprolol Tartrate 100 MG TABLET PO ×2 (08:49→21:15)
[2021-06-26] MEDS: Potassium Chloride/H20 10 MEQ/100 ML PIGGYBACK 100 MEQ IV ×2 (08:49→09:52)
[2021-06-26] MEDS: amLODIPine Besylate 10 MG TABLET PO (08:49)
[2021-06-26] MEDS: Aspirin Enteric Coated 81 MG TABLET.DR PO (08:49)
[2021-06-26] MEDS: buPROPion HCl XL 300 MG TAB.ER.24H PO (08:49)
[2021-06-26 09:04] LABS: INTERNATIONAL NORM RATIO 3.5 (0.9-1.1); Prothrombin Time 40.4 SEC (9.9-13.0)
--- NOTE | 2021-06-26 10:41 | P.CDIC_ITS ---
CDI Concurrent Query Documentation Clarification: PHYSICIAN'S DOCUMENTATION REQUEST Date of Query: 06/26/21 1042 Patient Name: Fabio Bridges III Admit Date: 06/24/21 Dear Doctor, A review of the medical record indicates additional documentation may be needed. Please review below and update the documentation accordingly. Clinical Indicators: Risk Factors/Clinical Indicators/Treatments Nursing Height and weight 06/24 - BMI 42.4 extreme obesity class III. If possible, please provide an associated diagnosis related to the abnormal BMI, such as: For a BMI >= 40: * Overweight * Obesity * Due to excess calories * Drug induced * Due to other cause * Severe or Morbid Obesity * With alveolar hypoventilation * Without alveolar hypoventilation Or: * BMI is not significant * Other (please specify) * Unable to determine Use of terms such as suspected, likely, concern for, or probable (associated with a specific diagnosis that is being evaluated, monitored, or treated as if it exists) are acceptable and can be coded in the inpatient setting, when documented at the time of discharge. Thank you, Niki Mcginnis [facility], CDIS Extension: [phone] Please use your independent medical judgment in providing your response. THIS QUERY IS PART OF THE PERMANENT MEDICAL RECORD Provider Response: Other Other Diagnosis: Morbid obesity
--- NOTE | 2021-06-26 10:41 | MHC.CDI.CONC ---
CDI Concurrent Query Documentation Clarification: PHYSICIAN'S DOCUMENTATION REQUEST Date of Query: 06/26/21 1042 Patient Name: Fabio Bridges III Admit Date: 06/24/21 Dear Doctor, A review of the medical record indicates additional documentation may be needed. Please review below and update the documentation accordingly. Clinical Indicators: Risk Factors/Clinical Indicators/Treatments Nursing Height and weight 06/24 - BMI 42.4 extreme obesity class III. If possible, please provide an associated diagnosis related to the abnormal BMI, such as: For a BMI >= 40: Overweight Obesity Due to excess calories Drug induced Due to other cause Severe or Morbid Obesity With alveolar hypoventilation Without alveolar hypoventilation Or: BMI is not significant Other (please specify) Unable to determine Use of terms such as suspected, likely, concern for, or probable (associated with a specific diagnosis that is being evaluated, monitored, or treated as if it exists) are acceptable and can be coded in the inpatient setting, when documented at the time of discharge. Thank you, Niki Mcginnis [facility], CDIS Extension: [phone] Please use your independent medical judgment in providing your response. THIS QUERY IS PART OF THE PERMANENT MEDICAL RECORD Provider Response: Other Other Diagnosis: Morbid obesity
[2021-06-26 11:25] LABS: Glucose, Whole Blood 112 mg/dL (60-115)
--- NOTE | 2021-06-26 11:41 | P.CDIC_ITS ---
CDI Concurrent Query Documentation Clarification: PHYSICIAN'S DOCUMENTATION REQUEST Date of Query: 06/26/21 1142 Patient Name: Fabio Bridges III Admit Date: 06/24/21 Dear Doctor, A review of the medical record indicates additional documentation may be needed. Please review below and update the documentation accordingly. Clinical Indicators: The following diagnoses or signs and symptoms were noted in the patient record: Risk Factors/Clinical Indicators/Treatments LABS: potassium 3.1 repleted with p.o. potassium 40 mEq. Based on the above, could you clarify in the Progress Notes the appropriate diagnosis, if significant, that supports the above abnormalities and additional evaluation, monitoring, and/or treatment rendered: Hypokalemia or other etiology of lab findings * Labs indicate a diagnosis of (please specify) * Other (please specify) * Unable to determine Use of terms such as suspected, likely, concern for, or probable (associated with a specific diagnosis that is being evaluated, monitored, or treated as if it exists) are acceptable and can be coded in the inpatient setting, when documented at the time of discharge. Thank you, Niki Mcginnis [facility], CDIS Extension: [phone] Please use your independent medical judgment in providing your response. THIS QUERY IS PART OF THE PERMANENT MEDICAL RECORD Provider Response: Other Other Diagnosis: Hypokalemia
--- NOTE | 2021-06-26 12:35 | MHC.CM.PN ---
Male 61 DX Covid + He was evaluated by PT. He qualifies for STR. Son Fabio, was asked for preferences. Referrals were sent to covid accepting facilities. The patient is not Vaccinated. DP to STR via BLS. All offering facilities will be presented for the patient to choose a rehab facility..
--- NOTE | 2021-06-26 13:38 | W.PM.IDCN ---
History of Present Illness Data of Consult Service Date: 06/25/21 Requesting physician: Ortiz Huffman Primary Care Provider: Jennifer Senior MD HPI Reason for consult: COVID,elevated LFTs He presents with weakness and falls over last week. He is concerned he has COVID. He is not vaccinated. He is not hypoxic on arrival but noted to have elevated LFTs,minor. Abdominal u/s is negative. Review of Systems Review of Systems: Yes all other systems are reviewed and are negative [facility] Past Medical History Medical History Anemia Atrial fibrillation Congestive heart failure Impaired fasting glucose Microalbuminuria Obesity QT prolongation Sleep disorder Stage 3 chronic kidney disease Type 2 diabetes mellitus Vitamin D deficiency Family History Family history: reviewed and not pertinent Social History Social History Household Members: None Housing: Apartment Housing Other:: 3rd floor walk up Do you presently have visiting nurse or other home services: Yes (X1 weekly) Alcohol intake: never Patient Tobacco Use Status: Never used Tobacco service: No Current occupation: Right handed Meds Allergies Allergy/AdvReac Type Severity Reaction Status Date / Time No Known Allergies Allergy Unverified 10/25/19 17:24 Active Medications: Current Medications Acetaminophen (Acetaminophen 325 Mg Tablet) 650 mg PO Q6H PRN PRN Reason: Headache Last Admin: 06/25/21 08:55 Dose: 650 mg Documented by: Amlodipine Besylate (Amlodipine Besylate 10 Mg Tablet) 10 mg PO DAILY [facility]; Protocol Last Admin: 06/26/21 08:49 Dose: 10 mg Documented by: Aspirin (Aspirin Enteric Coated 81 Mg Tablet.Dr) 81 mg PO DAILY [facility] Last Admin: 06/26/21 08:49 Dose: 81 mg Documented by: Atorvastatin Calcium (Atorvastatin Calcium 20 Mg Tablet) 20 mg PO BEDTIME [facility] Last Admin: 06/25/21 20:13 Dose: 20 mg Documented by: Bupropion HCl (Bupropion Hcl Xl 300 Mg Tab.Er.24h) 300 mg PO DAILY [facility] Last Admin: 06/26/21 08:49 Dose: 300 mg Documented by: Cephalexin HCl (Cephalexin 500 Mg Capsule) 500 mg PO Q12H [facility] Last Admin: 06/26/21 05:48 Dose: 500 mg Documented by: Dextrose (Dextrose 50 % 25 Gm/50 Ml Syringe) 25 gm IVPUSH Q15M PRN; Protocol PRN Reason: per Hypoglycemia Standing Ord. Doxycycline Hyclate (Doxycycline Hyclate 100 Mg Tablet) 100 mg PO Q12H [facility] Last Admin: 06/26/21 05:48 Dose: 100 mg Documented by: Furosemide (Furosemide 40 Mg Tablet) 40 mg PO BIDWM [facility]; Protocol Last Admin: 06/26/21 08:49 Dose: 40 mg Documented by: Glucose (Glucose Gel 15 Gm Gel..Gram.) 15 gm PO Q15M PRN; Protocol PRN Reason: per Hypoglycemia Standing Ord. Hydralazine HCl (Hydralazine Hcl 25 Mg Tablet) 25 mg PO BID [facility]; Protocol Last Admin: 06/26/21 08:50 Dose: Not Given Documented by: Sodium Chloride (Ns) 1,000 mls @ 100 mls/hr IVCONT .Q10H [facility] Last Infusion: 06/26/21 11:02 Dose: 100 mls/hr Documented by: Insulin Human Lispro (Insulin Lispro 100 Unit/Ml 3 Ml Vial) 0 unit SUBCUT QIDACHS [facility]; Protocol Last Admin: 06/26/21 12:07 Dose: Not Given Documented by: Metoprolol Tartrate (Metoprolol Tartrate 100 Mg Tablet) 100 mg PO BID [facility]; Protocol Last Admin: 06/26/21 08:49 Dose: 100 mg Documented by: Non-Formulary Medication (Ramelteon) 8 mg PO BEDTIME [facility] Oxycodone HCl (Oxycodone Hcl Immed Release 5 Mg Tablet) 5 mg PO Q6H PRN PRN Reason: Pain, Severe (Pain Scale 7-10) Last Admin: 06/26/21 05:48 Dose: 5 mg Documented by: Pharmacy Consult (Consult Rx Perform Med Rec) 1 each MISCELLANE ONCE PRN PRN Reason: Consult order Sodium Chloride (0.9 % Sodium Chloride Flush 3 Ml Syringe) 3 ml IVFLUSH QSHIFT [facility] Last Admin: 06/26/21 08:49 Dose: Not Given Documented by: Warfarin Sodium (Warfarin Sodium 3 Mg Tablet) 3 mg PO DAILY@1800 [facility] Last Admin: 06/24/21 21:10 Dose: 3 mg Documented by: Zolpidem Tartrate (Zolpidem Tartrate 5 Mg Tablet) 10 mg PO BEDTIME PRN PRN Reason: Insomnia Home Medications Medication Instructions Recorded Confirmed Last Taken Type amlodipine 10 mg tablet 10 mg PO DAILY 01/07/20 06/24/21 Unknown History aspirin 81 mg tablet,delayed 81 mg PO DAILY 01/07/20 06/24/21 Unknown History release (Adult Low Dose Aspirin) atorvastatin 20 mg tablet 20 mg PO BEDTIME 01/07/20 06/24/21 Unknown History furosemide 40 mg tablet 40 mg PO BID 01/07/20 06/24/21 Unknown History zolpidem 10 mg tablet (Ambien) 10 mg PO BEDTIME PRN 01/07/20 06/24/21 Unknown History bupropion HCl 150 mg tablet,12 hr 150 mg PO BID 06/04/21 06/24/21 Unknown History sustained-release hydralazine 25 mg tablet 25 mg PO BID 06/04/21 06/24/21 Unknown History ramelteon 8 mg tablet 8 mg PO BEDTIME 06/04/21 06/24/21 Unknown History melatonin 5 mg tablet 2 tab PO BEDTIME 06/24/21 06/24/21 Unknown History metoprolol tartrate 100 mg tablet 1 tab PO BID 06/24/21 06/24/21 Unknown History warfarin 3 mg tablet 1 tab PO DAILY 06/24/21 06/24/21 Unknown History Physical Exam Vital Signs: Vital Signs: Last Vital Signs Temp 99.0 F 06/26/21 11:18 Pulse 70 06/26/21 11:18 Resp 16 06/26/21 11:18 BP 128/69 06/26/21 11:18 Pulse Ox 95 06/26/21 11:18 BMI result Body Mass Index 42.4 Const: General: cooperative HEENT: Head: Yes normal to inspection Mouth: Normal oral and palatal mucosa present Resp: Effort & Inspection: normal respiratory effort Cardio: Rate: regular rate Rhythm: regular rhythm GI: Palpation (GI): nontender Skin: Other: resolving left wrist cellulitis General skin exam: no rashes or lesions noted Psych: Mental Status: other (sleepy) Results Labs CBC & Chem 7: 06/26/21 06:18 06/26/21 06:18 Labs: Short CBC 06/26/21 Range/Units 06:18 WBC 6.0 (4.8-10.8) X10*3/uL Hgb 9.0 L (14.0-18.0) g/dl Hct 29.0 L (42.0-52.0) % Plt Count 396 (160-400) X10*3/uL BMP 06/26/21 06:18 Sodium 139 Potassium 2.7 L Chloride 99 Carbon Dioxide 31 H BUN 27 H Creatinine 1.49 H Calcium 7.9 L Liver Function 06/26/21 Range/Units 06:18 Total Bilirubin 0.5 (0.0-1.0) mg/dL AST 65 H (5-37) U/L ALT 88 H (0-40) U/L Alkaline Phosphatase 375 H D (39-117) U/L Albumin 2.9 L (3.5-5.0) g/dL Microbiology Microbiology Results: Microbiology 06/24/21 03:57 Blood - Venous Blood Culture - Preliminary No growth after 48 hours. 06/24/21 03:57 Blood - Venous Blood Culture - Preliminary No growth after 48 hours. Assessment and Plan (1) Abnormal LFTs: Status: Acute (2) Atrial fibrillation: Status: Acute (3) Weakness: Status: Acute (4) COVID-19: Status: Acute He has COVID but no hypoxia Elevated LFTs could be from fatty liver or from Hepatitis C possible,less likely COVID. Plan Would finish course of antibiotics for wrist cellulitis,doubt cause of elevated LFTS, Check Hepatitis C No COVID treatment
[2021-06-26 16:44] LABS: Glucose, Whole Blood 107 mg/dL (60-115)
--- NOTE | 2021-06-26 19:17 | PC.NURSE ---
patient is ok to come off heart monitor for MRI per Dr Huffman.
[2021-06-26 20:52] LABS: Glucose, Whole Blood 114 mg/dL (60-115)
[2021-06-26] MEDS: hydrALAZINE HCl 25 MG TABLET PO (21:15)
[2021-06-26] MEDS: Atorvastatin Calcium 20 MG TABLET PO (21:15)
[2021-06-26] MEDS: 0.9 % Sodium Chloride Flush 3 ML SYRINGE IVFLUSH (21:15)
[2021-06-27] VITALS (7 sets, daily range): BP systolic 103–136; BP diastolic 54–80; PULSE 58–76; RESP 18–20; TEMP 36.1–37; O2SAT 95–99
[2021-06-27] MEDS: 0.9 % Sodium Chloride 1,000 ML 100 ML IVCONT (06:11)
[2021-06-27] MEDS: cephALEXin 500 MG CAPSULE PO ×2 (06:12→18:03)
[2021-06-27] MEDS: oxyCODONE HCl Immed Release 5 MG TABLET PO ×2 (06:13→12:59)
[2021-06-27 07:13] LABS: Hematocrit 27.9 % (42.0-52.0); Hemoglobin 8.8 g/dl (14.0-18.0); Mean Corpuscular HGB Conc 31.5 g/dl (31.0-36.0); Mean Corpuscular Hemoglobin 26.4 pg (27.0-33.0); Mean Corpuscular Volume 83.8 fL (80.0-98.0); Mean Platelet Volume 8.7 fL (9.4-12.4); Platelet Count 332 X10*3/uL (160-400); Red Blood Count 3.33 X10*6/uL (4.60-5.80); Red Cell Distribution Width 14.8 % (11.0-16.0); White Blood Count 5.6 X10*3/uL (4.8-10.8)
[2021-06-27 07:24] LABS: Glucose, Whole Blood 85 mg/dL (60-115)
[2021-06-27 08:03] LABS: Anion Gap 13 (12-20); Blood Urea Nitrogen 21 mg/dL (9-16); Calcium 7.6 mg/dL (8.4-10.2); Carbon Dioxide 27 mmol/L (22-29); Chloride 100 mmol/L (96-108); Creatinine Clr Calc Pharmacy 92.1; Estimated Glomerular Filt Rate > 60; Glucose Random 84 mg/dL (60-115); Potassium 2.9 mmol/L (3.3-5.1); Sodium 137 mmol/L (135-145)
[2021-06-27] MEDS: hydrALAZINE HCl 25 MG TABLET PO ×2 (08:44→19:56)
[2021-06-27] MEDS: 0.9 % Sodium Chloride Flush 3 ML SYRINGE IVFLUSH ×3 (08:44→19:55)
[2021-06-27] MEDS: Aspirin Enteric Coated 81 MG TABLET.DR PO (08:45)
[2021-06-27] MEDS: buPROPion HCl XL 300 MG TAB.ER.24H PO (08:45)
[2021-06-27] MEDS: Furosemide 40 MG TABLET PO ×2 (08:45→16:22)
[2021-06-27] MEDS: amLODIPine Besylate 10 MG TABLET PO (08:45)
[2021-06-27] MEDS: Metoprolol Tartrate 100 MG TABLET PO ×2 (08:46→19:55)
[2021-06-27 10:44] LABS: INTERNATIONAL NORM RATIO 3.9 (0.9-1.1); Prothrombin Time 45.6 SEC (9.9-13.0)
[2021-06-27 11:13] LABS: Glucose, Whole Blood 124 mg/dL (60-115)
[2021-06-27] MEDS: Acetaminophen 325 MG TABLET 650 MG PO (12:57)
[2021-06-27] MEDS: Potassium Chloride/H20 10 MEQ/100 ML PIGGYBACK 100 MEQ IV ×4 (15:23→18:37)
[2021-06-27 16:03] LABS: Glucose, Whole Blood 103 mg/dL (60-115)
--- NOTE | 2021-06-27 16:14 | P.PNIM_ITS ---
Subjective Subjective Date of Service: 06/27/21 Interval History: No acute events overnight. Continuous with vague mid abdominal pain Review of Systems Denies chest pain Denies shortness of breath Denies nausea vomiting diarrhea Denies fever chills Physical Exam Vital Signs: Vital Signs: Last Vital Signs Temp 98.0 F 06/27/21 15:01 Pulse 62 06/27/21 15:01 Resp 20 06/27/21 15:01 BP 112/58 L 06/27/21 15:01 Pulse Ox 99 06/27/21 15:01 BMI result Body Mass Index 42.4 Const: Other: Awake alert no acute distress Resp: Other: Clear to auscultation bilaterally no rales rhonchi or wheezes Cardio: Other: No S4; positive S1-S2; no S3 murmurs or gallops GI: Other: Soft nontender nondistended normoactive bowel sounds Extrem: Other: No edema Objective Data Active Medications Acetaminophen (Acetaminophen 325 Mg Tablet) 650 mg PO Q6H PRN PRN Reason: Headache Last Admin: 06/27/21 12:57 Dose: 650 mg Documented by: LORNA Amlodipine Besylate (Amlodipine Besylate 10 Mg Tablet) 10 mg PO DAILY [facility]; Protocol Last Admin: 06/27/21 08:45 Dose: 10 mg Documented by: LORNA Aspirin (Aspirin Enteric Coated 81 Mg Tablet.Dr) 81 mg PO DAILY [facility] Last Admin: 06/27/21 08:45 Dose: 81 mg Documented by: LORNA Atorvastatin Calcium (Atorvastatin Calcium 20 Mg Tablet) 20 mg PO BEDTIME [facility] Last Admin: 06/26/21 21:15 Dose: 20 mg Documented by: BRIAN Bupropion HCl (Bupropion Hcl Xl 300 Mg Tab.Er.24h) 300 mg PO DAILY [facility] Last Admin: 06/27/21 08:45 Dose: 300 mg Documented by: LORNA Cephalexin HCl (Cephalexin 500 Mg Capsule) 500 mg PO Q12H [facility] Last Admin: 06/27/21 06:12 Dose: 500 mg Documented by: BRIAN Dextrose (Dextrose 50 % 25 Gm/50 Ml Syringe) 25 gm IVPUSH Q15M PRN; Protocol PRN Reason: per Hypoglycemia Standing Ord. Doxycycline Hyclate (Doxycycline Hyclate 100 Mg Tablet) 100 mg PO Q12H [facility] Last Admin: 06/27/21 06:12 Dose: 100 mg Documented by: ANTOIC Furosemide (Furosemide 40 Mg Tablet) 40 mg PO BIDWM [facility]; Protocol Last Admin: 06/27/21 08:45 Dose: 40 mg Documented by: LORNA Glucose (Glucose Gel 15 Gm Gel..Gram.) 15 gm PO Q15M PRN; Protocol PRN Reason: per Hypoglycemia Standing Ord. Hydralazine HCl (Hydralazine Hcl 25 Mg Tablet) 25 mg PO BID [facility]; Protocol Last Admin: 06/27/21 08:44 Dose: 25 mg Documented by: LORNA Potassium Chloride () 10 meq in 100 mls @ 100 mls/hr IV Q1H [facility] Stop: 06/27/21 18:59 Last Admin: 06/27/21 15:23 Dose: 100 mls/hr Documented by: LORNA Insulin Human Lispro (Insulin Lispro 100 Unit/Ml 3 Ml Vial) 0 unit SUBCUT QIDACHS [facility]; Protocol Last Admin: 06/27/21 11:22 Dose: Not Given Documented by: LORNA Non-Admin Reason: No Insulin Coverage Metoprolol Tartrate (Metoprolol Tartrate 100 Mg Tablet) 100 mg PO BID [facility]; Protocol Last Admin: 06/27/21 08:46 Dose: 100 mg Documented by: LORNA Non-Formulary Medication (Ramelteon) 8 mg PO BEDTIME [facility] Oxycodone HCl (Oxycodone Hcl Immed Release 5 Mg Tablet) 5 mg PO Q6H PRN PRN Reason: Pain, Severe (Pain Scale 7-10) Last Admin: 06/27/21 12:59 Dose: 5 mg Documented by: LORNA Pharmacy Consult (Consult Rx Perform Med Rec) 1 each MISCELLANE ONCE PRN PRN Reason: Consult order Sodium Chloride (0.9 % Sodium Chloride Flush 3 Ml Syringe) 3 ml IVFLUSH QSHIFT [facility] Last Admin: 06/27/21 08:44 Dose: 3 ml Documented by: LORNA Warfarin Sodium (Warfarin Sodium 3 Mg Tablet) 3 mg PO DAILY@1800 [facility] Last Admin: 06/24/21 21:10 Dose: 3 mg Documented by: JOAO Zolpidem Tartrate (Zolpidem Tartrate 5 Mg Tablet) 10 mg PO BEDTIME PRN PRN Reason: Insomnia Labs CBC & Chem 7: 05/21/22 06:07 06/27/21 06:07 Labs: Laboratory Results - last 24 hr 06/26/21 06/26/21 06/27/21 15:44 20:30 06:07 MCV 83.8 MCH 26.4 L MCHC 31.5 RDW 14.8 Plt Count 332 MPV 8.7 L Absolute Nucleated RBC 0.000 Nucleated RBC % (auto) 0.0 PT INR Anion Gap Estim Creat Clear Calc Estimated GFR POC Glucose 107 114 Random Glucose Calcium 06/27/21 06/27/21 06/27/21 06:07 07:18 10:13 MCV MCH MCHC RDW Plt Count MPV Absolute Nucleated RBC Nucleated RBC % (auto) PT 45.6 H INR 3.9 H Anion Gap 13 Estim Creat Clear Calc 92.1 Estimated GFR > 60 POC Glucose 85 Random Glucose 84 Calcium 7.6 L 06/27/21 06/27/21 11:05 15:58 MCV MCH MCHC RDW Plt Count MPV Absolute Nucleated RBC Nucleated RBC % (auto) PT INR Anion Gap Estim Creat Clear Calc Estimated GFR POC Glucose 124 H 103 Random Glucose Calcium Assessment and Plan (1) Weakness: Status: Acute (2) COVID-19: Status: Acute (3) Choledocholithiasis: Status: Acute (4) Atrial fibrillation: Status: Acute (5) Abnormal LFTs: Status: Acute Plan 61-year-old female with a past medical history of hypertension, hyperlipidemia, diabetes, CHF, AFib presented to the hospital with a chief complaint of generalized weakness/falls; found to have mild elevation of his transaminases; ventricular response rate acceptable 1. Weakness (multifactorial with COVID-19) -continue supportive therapies -PT consult .... Recommend STR; referrals out 2. Choledocholithiasis/transaminitis -enzymes trending downward -MRCP inconclusive -continue to trend LFTs 3. Atrial fibrillation -acceptable rate control on current therapies -adjust as indicated -INR therapeutic 4. Diabetes type 2 -acceptable control on current therapies -continue with list pro correctional scale -ADA diet Coumadin Full code Requires ongoing hospitalization to trend liver function test and decide intervention Quality Stroke Does the patient have a stroke diagnosis?: No VTE Prior VTE?: No VTE Risk Level:: Medical - moderate - high VTE Device Contraindication: Treatment Not Indicated VTE Drug Contraindication: N/A - Med Ordered
[2021-06-27 18:04] LABS: Alanine Aminotransferase 53 U/L (0-40); Albumin Level 2.8 g/dL (3.5-5.0); Alkaline Phosphatase 277 U/L (39-117); Aspartate Amino Transferase 30 U/L (5-37); Bilirubin Direct 0.3 mg/dL (0.0-0.5); Bilirubin Total 0.5 mg/dL (0.0-1.0); Total Protein 5.1 g/dL (6.5-8.0)
[2021-06-27 19:28] LABS: Glucose, Whole Blood 105 mg/dL (60-115)
[2021-06-27] MEDS: Atorvastatin Calcium 20 MG TABLET PO (19:55)
[2021-06-28] VITALS (7 sets, daily range): BP systolic 99–133; BP diastolic 46–75; PULSE 64–78; RESP 18–20; TEMP 36.3–37.7; O2SAT 96–99
[2021-06-28 06:19] LABS: MANUAL DIFF FLAG NO
[2021-06-28 06:32] LABS: Basophils Percent Auto 0.4 % (0-2); Eosinophils Absolute Auto 0.2 X10*3/uL (0.0-0.4); Hematocrit 28.3 % (42.0-52.0); Hemoglobin 8.9 g/dl (14.0-18.0); Imm Gran Abs Auto 0.11 X10*3/uL (0.00-0.03); Imm Gran Pct Auto 2.2 % (0.0-0.4); Lymphocytes Absolute Auto 1.1 X10*3/uL (1.2-4.9); Mean Corpuscular HGB Conc 31.4 g/dl (31.0-36.0); Mean Corpuscular Hemoglobin 26.4 pg (27.0-33.0); Mean Platelet Volume 8.8 fL (9.4-12.4); Monocytes Absolute Auto 0.5 X10*3/uL (0.1-1.2); Monocytes Percent Auto 10.1 % (2-11); Neutrophils Absolute Auto 3.2 x10*3/uL (2.0-8.3); Neutrophils Percent Auto 63.3 % (45-73); Platelet Count 332 X10*3/uL (160-400); Red Blood Count 3.37 X10*6/uL (4.60-5.80); Red Cell Distribution Width 14.9 % (11.0-16.0)
[2021-06-28 06:35] LABS: INTERNATIONAL NORM RATIO 4.2 (0.9-1.1); Prothrombin Time 49.4 SEC (9.9-13.0)
[2021-06-28] MEDS: Aspirin Enteric Coated 81 MG TABLET.DR PO (07:54)
[2021-06-28] MEDS: cephALEXin 500 MG CAPSULE PO ×2 (07:54→18:25)
[2021-06-28] MEDS: buPROPion HCl XL 300 MG TAB.ER.24H PO (07:55)
[2021-06-28] MEDS: hydrALAZINE HCl 25 MG TABLET PO ×2 (07:55→22:37)
[2021-06-28] MEDS: amLODIPine Besylate 10 MG TABLET PO (07:55)
[2021-06-28] MEDS: Metoprolol Tartrate 100 MG TABLET PO ×2 (07:55→22:37)
[2021-06-28] MEDS: Furosemide 40 MG TABLET PO ×2 (07:56→18:25)
[2021-06-28] MEDS: 0.9 % Sodium Chloride Flush 3 ML SYRINGE IVFLUSH ×3 (07:59→22:37)
[2021-06-28 08:02] LABS: Glucose, Whole Blood 78 mg/dL (60-115)
[2021-06-28 11:40] LABS: Glucose, Whole Blood 117 mg/dL (60-115)
--- NOTE | 2021-06-28 13:55 | P.PNIM_ITS ---
Subjective Subjective Date of Service: 06/28/21 Interval History: No acute events overnight. Continuous with vague mid abdominal pain Review of Systems Denies chest pain Denies shortness of breath Denies nausea vomiting diarrhea Denies fever chills Physical Exam Vital Signs: Vital Signs: Last Vital Signs Temp 97.5 F 06/28/21 11:28 Pulse 64 06/28/21 11:28 Resp 18 06/28/21 11:28 BP 119/66 06/28/21 11:28 Pulse Ox 98 06/28/21 11:28 BMI result Body Mass Index 42.4 Const: Other: Awake alert no acute distress Resp: Other: Clear to auscultation bilaterally no rales rhonchi or wheezes Cardio: Other: No S4; positive S1-S2; no S3 murmurs or gallops GI: Other: Soft nontender nondistended normoactive bowel sounds Extrem: Other: No edema Objective Data Active Medications Acetaminophen (Acetaminophen 325 Mg Tablet) 650 mg PO Q6H PRN PRN Reason: Headache Last Admin: 06/27/21 12:57 Dose: 650 mg Documented by: LORNA Amlodipine Besylate (Amlodipine Besylate 10 Mg Tablet) 10 mg PO DAILY [facility]; Protocol Last Admin: 06/28/21 07:55 Dose: 10 mg Documented by: ARSLAN Aspirin (Aspirin Enteric Coated 81 Mg Tablet.) 81 mg PO DAILY [facility] Last Admin: 06/28/21 07:54 Dose: 81 mg Documented by: ARSLAN Atorvastatin Calcium (Atorvastatin Calcium 20 Mg Tablet) 20 mg PO BEDTIME [facility] Last Admin: 06/27/21 19:55 Dose: 20 mg Documented by: ANTOIC Bupropion HCl (Bupropion Hcl Xl 300 Mg Tab.Er.24h) 300 mg PO DAILY [facility] Last Admin: 06/28/21 07:55 Dose: 300 mg Documented by: ARSLAN Cephalexin HCl (Cephalexin 500 Mg Capsule) 500 mg PO Q12H [facility] Last Admin: 06/28/21 07:54 Dose: 500 mg Documented by: ARSLAN Dextrose (Dextrose 50 % 25 Gm/50 Ml Syringe) 25 gm IVPUSH Q15M PRN; Protocol PRN Reason: per Hypoglycemia Standing Ord. Doxycycline Hyclate (Doxycycline Hyclate 100 Mg Tablet) 100 mg PO Q12H [facility] Last Admin: 06/28/21 07:54 Dose: 100 mg Documented by: ARSLAN Furosemide (Furosemide 40 Mg Tablet) 40 mg PO BIDWM [facility]; Protocol Last Admin: 06/28/21 07:56 Dose: 40 mg Documented by: ARSLAN Glucose (Glucose Gel 15 Gm Gel..Gram.) 15 gm PO Q15M PRN; Protocol PRN Reason: per Hypoglycemia Standing Ord. Hydralazine HCl (Hydralazine Hcl 25 Mg Tablet) 25 mg PO BID [facility]; Protocol Last Admin: 06/28/21 07:55 Dose: 25 mg Documented by: ARSLAN Insulin Human Lispro (Insulin Lispro 100 Unit/Ml 3 Ml Vial) 0 unit SUBCUT QIDACHS [facility]; Protocol Last Admin: 06/28/21 13:51 Dose: Not Given Documented by: ARSLAN Non-Admin Reason: No Insulin Coverage Metoprolol Tartrate (Metoprolol Tartrate 100 Mg Tablet) 100 mg PO BID [facility]; Protocol Last Admin: 06/28/21 07:55 Dose: 100 mg Documented by: ARSLAN Non-Formulary Medication (Ramelteon) 8 mg PO BEDTIME [facility] Oxycodone HCl (Oxycodone Hcl Immed Release 5 Mg Tablet) 5 mg PO Q6H PRN PRN Reason: Pain, Severe (Pain Scale 7-10) Last Admin: 06/27/21 12:59 Dose: 5 mg Documented by: LORNA Pharmacy Consult (Consult Rx Perform Med Rec) 1 each MISCELLANE ONCE PRN PRN Reason: Consult order Sodium Chloride (0.9 % Sodium Chloride Flush 3 Ml Syringe) 3 ml IVFLUSH [facility] Last Admin: 06/28/21 07:59 Dose: 3 ml Documented by: ARSLAN Warfarin Sodium (Warfarin Sodium 3 Mg Tablet) 3 mg PO DAILY@1800 [facility] Last Admin: 06/24/21 21:10 Dose: 3 mg Documented by: JOAO Zolpidem Tartrate (Zolpidem Tartrate 5 Mg Tablet) 10 mg PO BEDTIME PRN PRN Reason: Insomnia Labs CBC & Chem 7: 06/28/21 06:01 06/27/21 06:07 Labs: Laboratory Results - last 24 hr 06/27/21 06/27/21 06/27/21 15:58 16:54 19:24 MCV MCH MCHC RDW Plt Count MPV Immature Gran % (Auto) Neut % (Auto) Lymph % (Auto) Williamson % (Auto) Eos % (Auto) Baso % (Auto) Lymph # (Auto) Williamson # (Auto) Eos # (Auto) Baso # (Auto) Abs Immat Gran (auto) Absolute Neuts (auto) Absolute Nucleated RBC Nucleated RBC % (auto) PT INR POC Glucose 103 105 Total Bilirubin 0.5 Direct Bilirubin 0.3 AST 30 D ALT 53 H Alkaline Phosphatase 277 H D Total Protein 5.1 L Albumin 2.8 L 06/28/21 06/28/21 06/28/21 06:01 06:01 07:51 MCV 84.0 MCH 26.4 L MCHC 31.4 RDW 14.9 Plt Count 332 MPV 8.8 L Immature Gran % (Auto) 2.2 H Neut % (Auto) 63.3 Lymph % (Auto) 21.0 Williamson % (Auto) 10.1 Eos % (Auto) 3.0 Baso % (Auto) 0.4 Lymph # (Auto) 1.1 L Williamson # (Auto) 0.5 Eos # (Auto) 0.2 Baso # (Auto) 0.0 Abs Immat Gran (auto) 0.11 H Absolute Neuts (auto) 3.2 Absolute Nucleated RBC 0.000 Nucleated RBC % (auto) 0.0 PT 49.4 H INR 4.2 H POC Glucose 78 Total Bilirubin Direct Bilirubin AST ALT Alkaline Phosphatase Total Protein Albumin 06/28/21 11:28 MCV MCH MCHC RDW Plt Count MPV Immature Gran % (Auto) Neut % (Auto) Lymph % (Auto) Williamson % (Auto) Eos % (Auto) Baso % (Auto) Lymph # (Auto) Williamson # (Auto) Eos # (Auto) Baso # (Auto) Abs Immat Gran (auto) Absolute Neuts (auto) Absolute Nucleated RBC Nucleated RBC % (auto) PT INR POC Glucose 117 H Total Bilirubin Direct Bilirubin AST ALT Alkaline Phosphatase Total Protein Albumin Assessment and Plan (1) Weakness: Status: Acute (2) COVID-19: Status: Acute (3) Choledocholithiasis: Status: Acute (4) Atrial fibrillation: Status: Acute Plan 61-year-old female with a past medical history of hypertension, hyperlipidemia, diabetes, CHF, AFib presented to the hospital with a chief complaint of generalized weakness/falls; found to have mild elevation of his transaminases; ventricular response rate acceptable 1. Weakness (multifactorial with COVID-19) -continue supportive therapies... Minimal improvement -PT consult .... Recommend STR; referrals out 2. Choledocholithiasis/transaminitis -enzymes trending downward -continue to trend LFTs 3. Atrial fibrillation -acceptable rate control on current therapies -adjust as indicated -INR 4.2... Coumadin held 4. Diabetes type 2 -acceptable control on current therapies -continue with list pro correctional scale -ADA diet Coumadin Full code Requires ongoing hospitalization to trend liver function test and decide intervention Quality Stroke Does the patient have a stroke diagnosis?: No VTE Prior VTE?: No VTE Risk Level:: Medical - moderate - high VTE Device Contraindication: Treatment Not Indicated VTE Drug Contraindication: N/A - Med Ordered
[2021-06-28 15:59] LABS: Glucose, Whole Blood 128 mg/dL (60-115)
[2021-06-28] MEDS: oxyCODONE HCl Immed Release 5 MG TABLET PO (18:28)
[2021-06-28 20:11] LABS: Glucose, Whole Blood 119 mg/dL (60-115)
[2021-06-28] MEDS: Atorvastatin Calcium 20 MG TABLET PO (22:37)
[2021-06-29] MEDS: Zolpidem Tartrate 5 MG TABLET 10 MG PO (00:10)
[2021-06-29] MEDS: oxyCODONE HCl Immed Release 5 MG TABLET PO ×4 (00:10→22:29)
[2021-06-29 03:09] VITALS: BP 123/78; PULSE 58; RESP 19; TEMP 36.7; O2SAT 97
[2021-06-29 04:03] LABS: ~Hepatitis C Antibody Nonreactive (Nonreactive)
[2021-06-29] MEDS: cephALEXin 500 MG CAPSULE PO ×2 (06:12→18:06)
[2021-06-29 06:57] LABS: MANUAL DIFF FLAG NO
[2021-06-29 07:07] LABS: Basophils Percent Auto 0.3 % (0-2); Eosinophils Absolute Auto 0.2 X10*3/uL (0.0-0.4); Eosinophils Percent Auto 3.5 % (0-4); Hematocrit 29.5 % (42.0-52.0); Hemoglobin 9.2 g/dl (14.0-18.0); Imm Gran Abs Auto 0.08 X10*3/uL (0.00-0.03); Imm Gran Pct Auto 1.3 % (0.0-0.4); Lymphocytes Absolute Auto 1.2 X10*3/uL (1.2-4.9); Lymphocytes Percent Auto 19.1 % (20-40); Mean Corpuscular HGB Conc 31.2 g/dl (31.0-36.0); Mean Corpuscular Hemoglobin 25.9 pg (27.0-33.0); Mean Corpuscular Volume 83.1 fL (80.0-98.0); Mean Platelet Volume 8.6 fL (9.4-12.4); Monocytes Absolute Auto 0.6 X10*3/uL (0.1-1.2); Monocytes Percent Auto 9.5 % (2-11); Neutrophils Absolute Auto 4.2 x10*3/uL (2.0-8.3); Neutrophils Percent Auto 66.3 % (45-73); Platelet Count 337 X10*3/uL (160-400); Red Blood Count 3.55 X10*6/uL (4.60-5.80); Red Cell Distribution Width 14.9 % (11.0-16.0); White Blood Count 6.3 X10*3/uL (4.8-10.8)
[2021-06-29 07:13] LABS: INTERNATIONAL NORM RATIO 2.9 (0.9-1.1); Prothrombin Time 33.8 SEC (9.9-13.0)
[2021-06-29 07:23] VITALS: BP 116/73; PULSE 81; RESP 18; TEMP 36.8; O2SAT 96
[2021-06-29 07:52] LABS: Alanine Aminotransferase 40 U/L (0-40); Albumin Level 2.9 g/dL (3.5-5.0); Alkaline Phosphatase 226 U/L (39-117); Anion Gap 11 (12-20); Aspartate Amino Transferase 23 U/L (5-37); Bilirubin Total 0.6 mg/dL (0.0-1.0); Blood Urea Nitrogen 17 mg/dL (9-16); Carbon Dioxide 28 mmol/L (22-29); Chloride 101 mmol/L (96-108); Creatinine Clr Calc Pharmacy 91.3; Estimated Glomerular Filt Rate > 60; Glucose Fasting 90 mg/dL (60-99); Potassium 3.1 mmol/L (3.3-5.1); Sodium 137 mmol/L (135-145); Total Protein 5.2 g/dL (6.5-8.0)
[2021-06-29 07:57] LABS: Glucose, Whole Blood 89 mg/dL (60-115)
[2021-06-29] MEDS: Metoprolol Tartrate 100 MG TABLET PO ×2 (09:41→22:26)
[2021-06-29] MEDS: hydrALAZINE HCl 25 MG TABLET PO ×2 (09:41→22:26)
[2021-06-29] MEDS: buPROPion HCl XL 300 MG TAB.ER.24H PO (09:42)
[2021-06-29] MEDS: 0.9 % Sodium Chloride Flush 3 ML SYRINGE IVFLUSH ×3 (09:42→22:26)
[2021-06-29] MEDS: Aspirin Enteric Coated 81 MG TABLET.DR PO (09:42)
[2021-06-29] MEDS: amLODIPine Besylate 10 MG TABLET PO (09:42)
[2021-06-29] MEDS: Furosemide 40 MG TABLET PO ×2 (09:42→18:05)
--- NOTE | 2021-06-29 10:27 | P.CDIC_ITS ---
CDI Concurrent Query Documentation Clarification: PHYSICIAN'S DOCUMENTATION REQUEST Date of Query: 06/29/21 1027 Patient Name: Fabio Bridges III Admit Date: 06/24/21 Dear Doctor, A review of the medical record indicates additional documentation may be needed. Please review below and update the documentation accordingly. Clinical Indicators: Risk Factors/Clinical Indicators/Treatments PMH: Congestive heart failure BNP 233 H ED: 06/24 - patient is noted to have CHF exacerbation likely 2nd to combo of Covid with elevated heart rate. Please provide further specificity regarding the most likely type and acuity of CHF you are evaluating, treating, or monitoring. Examples include: Type: * Systolic * Diastolic * Combined Systolic/Diastolic * Other ? please specify * Unable to determine Acuity: * Acute * Chronic * Acute on chronic * Unable to determine Use of terms such as suspected, likely, concern for, or probable (associated with a specific diagnosis that is being evaluated, monitored, or treated as if it exists) are acceptable and can be coded in the inpatient setting, when documented at the time of discharge. Thank you, Niki Mcginnis [facility], CDIS Extension: [phone] Please use your independent medical judgment in providing your response. THIS QUERY IS PART OF THE PERMANENT MEDICAL RECORD Provider Response: Other Other Diagnosis: Acute on chronic systolic heart failure
[2021-06-29 11:19] VITALS: BP 114/69; PULSE 65; RESP 19; TEMP 36.7; O2SAT 97
[2021-06-29 11:29] LABS: Glucose, Whole Blood 89 mg/dL (60-115)
[2021-06-29 11:47] VITALS: BP 114/69; PULSE 65; O2SAT 97
--- NOTE | 2021-06-29 14:01 | MHC.CM.PN ---
Male 61 DX Covid and Cholelithiesis Per MD rounds patient is ready to discharge. He had a PT eval; which qualifies him for STR. Referrals have been sent. Covid + no Vaccines have been received. 1st covid+ 06/24/21. He has facilities that are interested; but not until day 11, 07/04/21. He will transport via BLS.
--- NOTE | 2021-06-29 14:04 | HO.PM.IMPN ---
Subjective Subjective Date of Service: 06/29/21 Interval History: No acute events overnight. Continuous with vague mid abdominal pain Review of Systems Denies chest pain Denies shortness of breath Denies nausea vomiting diarrhea Denies fever chills Physical Exam Vital Signs: Vital Signs: Last Vital Signs Temp 98.0 F 06/29/21 11:19 Pulse 65 06/29/21 11:47 Resp 19 06/29/21 11:19 BP 114/69 06/29/21 11:47 Pulse Ox 97 06/29/21 11:47 BMI result Body Mass Index 42.4 Const: Other: Awake alert no acute distress Resp: Other: Clear to auscultation bilaterally no rales rhonchi or wheezes Cardio: Other: No S4; positive S1-S2; no S3 murmurs or gallops GI: Other: Soft nontender nondistended normoactive bowel sounds Extrem: Other: No edema Objective Data Active Medications Acetaminophen (Acetaminophen 325 Mg Tablet) 650 mg PO Q6H PRN PRN Reason: Headache Last Admin: 06/27/21 12:57 Dose: 650 mg Documented by: LORNA Amlodipine Besylate (Amlodipine Besylate 10 Mg Tablet) 10 mg PO DAILY [facility]; Protocol Last Admin: 06/29/21 09:42 Dose: 10 mg Documented by: JAN Aspirin (Aspirin Enteric Coated 81 Mg Tablet.Dr) 81 mg PO DAILY [facility] Last Admin: 06/29/21 09:42 Dose: 81 mg Documented by: JAN Atorvastatin Calcium (Atorvastatin Calcium 20 Mg Tablet) 20 mg PO BEDTIME [facility] Last Admin: 06/28/21 22:37 Dose: 20 mg Documented by: DARWIN Bupropion HCl (Bupropion Hcl Xl 300 Mg Tab.Er.24h) 300 mg PO DAILY [facility] Last Admin: 06/29/21 09:42 Dose: 300 mg Documented by: JAN Cephalexin HCl (Cephalexin 500 Mg Capsule) 500 mg PO Q12H [facility] Last Admin: 06/29/21 06:12 Dose: 500 mg Documented by: DARWIN Dextrose (Dextrose 50 % 25 Gm/50 Ml Syringe) 25 gm IVPUSH Q15M PRN; Protocol PRN Reason: per Hypoglycemia Standing Ord. Doxycycline Hyclate (Doxycycline Hyclate 100 Mg Tablet) 100 mg PO Q12H [facility] Last Admin: 06/29/21 06:12 Dose: 100 mg Documented by: DARWIN Furosemide (Furosemide 40 Mg Tablet) 40 mg PO BIDWM [facility]; Protocol Last Admin: 06/29/21 09:42 Dose: 40 mg Documented by: JAN Glucose (Glucose Gel 15 Gm Gel..Gram.) 15 gm PO Q15M PRN; Protocol PRN Reason: per Hypoglycemia Standing Ord. Hydralazine HCl (Hydralazine Hcl 25 Mg Tablet) 25 mg PO BID [facility]; Protocol Last Admin: 06/29/21 09:41 Dose: 25 mg Documented by: JAN Insulin Human Lispro (Insulin Lispro 100 Unit/Ml 3 Ml Vial) 0 unit SUBCUT QIDACHS [facility]; Protocol Last Admin: 06/29/21 11:35 Dose: Not Given Documented by: JAN Non-Admin Reason: No Insulin Coverage Metoprolol Tartrate (Metoprolol Tartrate 100 Mg Tablet) 100 mg PO BID [facility]; Protocol Last Admin: 06/29/21 09:41 Dose: 100 mg Documented by: JAN Non-Formulary Medication (Ramelteon) 8 mg PO BEDTIME [facility] Oxycodone HCl (Oxycodone Hcl Immed Release 5 Mg Tablet) 5 mg PO Q6H PRN PRN Reason: Pain, Severe (Pain Scale 7-10) Last Admin: 06/29/21 12:58 Dose: 5 mg Documented by: JAN Pharmacy Consult (Consult Rx Perform Med Rec) 1 each MISCELLANE ONCE PRN PRN Reason: Consult order Potassium Chloride (Potassium Chloride Packet 20 Meq Packet) 40 meq PO Q4H [facility] Stop: 06/29/21 18:16 Sodium Chloride (0.9 % Sodium Chloride Flush 3 Ml Syringe) 3 ml IVFLUSH QSHIFT [facility] Last Admin: 06/29/21 09:42 Dose: 3 ml Documented by: JAN Warfarin Sodium (Warfarin Sodium 3 Mg Tablet) 3 mg PO DAILY@1800 [facility] Last Admin: 06/24/21 21:10 Dose: 3 mg Documented by: JOAO Zolpidem Tartrate (Zolpidem Tartrate 5 Mg Tablet) 10 mg PO BEDTIME PRN PRN Reason: Insomnia Last Admin: 06/29/21 00:10 Dose: 10 mg Documented by: DARWIN Labs CBC & Chem 7: 06/29/21 06:37 06/29/21 06:37 Labs: Laboratory Results - last 24 hr 06/26/21 06/28/21 06/28/21 16:48 15:53 19:41 MCV MCH MCHC RDW Plt Count MPV Immature Gran % (Auto) Neut % (Auto) Lymph % (Auto) Harris % (Auto) Eos % (Auto) Baso % (Auto) Lymph # (Auto) Harris # (Auto) Eos # (Auto) Baso # (Auto) Abs Immat Gran (auto) Absolute Neuts (auto) Absolute Nucleated RBC Nucleated RBC % (auto) PT INR Anion Gap Estim Creat Clear Calc Estimated GFR POC Glucose 128 H 119 H Fasting Glucose Calcium Total Bilirubin AST ALT Alkaline Phosphatase Total Protein Albumin Hepatitis C Ab (EIA) Nonreactive 06/29/21 06/29/21 06/29/21 06:37 06:37 06:37 MCV 83.1 MCH 25.9 L MCHC 31.2 RDW 14.9 Plt Count 337 MPV 8.6 L Immature Gran % (Auto) 1.3 H Neut % (Auto) 66.3 Lymph % (Auto) 19.1 L Harris % (Auto) 9.5 Eos % (Auto) 3.5 Baso % (Auto) 0.3 Lymph # (Auto) 1.2 Harris # (Auto) 0.6 Eos # (Auto) 0.2 Baso # (Auto) 0.0 Abs Immat Gran (auto) 0.08 H Absolute Neuts (auto) 4.2 Absolute Nucleated RBC 0.000 Nucleated RBC % (auto) 0.0 PT 33.8 H INR 2.9 H Anion Gap 11 L Estim Creat Clear Calc 91.3 Estimated GFR > 60 POC Glucose Fasting Glucose 90 D Calcium 8.0 L Total Bilirubin 0.6 AST 23 ALT 40 Alkaline Phosphatase 226 H Total Protein 5.2 L Albumin 2.9 L Hepatitis C Ab (EIA) 06/29/21 06/29/21 07:27 11:21 MCV MCH MCHC RDW Plt Count MPV Immature Gran % (Auto) Neut % (Auto) Lymph % (Auto) Harris % (Auto) Eos % (Auto) Baso % (Auto) Lymph # (Auto) Harris # (Auto) Eos # (Auto) Baso # (Auto) Abs Immat Gran (auto) Absolute Neuts (auto) Absolute Nucleated RBC Nucleated RBC % (auto) PT INR Anion Gap Estim Creat Clear Calc Estimated GFR POC Glucose 89 89 Fasting Glucose Calcium Total Bilirubin AST ALT Alkaline Phosphatase Total Protein Albumin Hepatitis C Ab (EIA) Microbiology Microbiology Results: Microbiology 06/24/21 03:57 Blood Culture - Final Blood - Venous No growth after 5 days. 06/24/21 03:57 Blood Culture - Final Blood - Venous No growth after 5 days. Assessment and Plan (1) COVID-19: Status: Acute (2) Abnormal LFTs: Status: Acute (3) Atrial fibrillation: Status: Acute Plan 61-year-old female with a past medical history of hypertension, hyperlipidemia, diabetes, CHF, AFib presented to the hospital with a chief complaint of generalized weakness/falls; found to have mild elevation of his transaminases; ventricular response rate acceptable 1. Weakness (multifactorial with COVID-19) -continue supportive therapies... Minimal improvement -PT consult .... Recommend STR; referrals out 2. Choledocholithiasis/transaminitis -enzymes normalized -continue to trend LFTs 3. Atrial fibrillation -acceptable rate control on current therapies -adjust as indicated -INR therapeutic 4. Diabetes type 2 -acceptable control on current therapies -continue with list pro correctional scale -ADA diet Coumadin Full code Requires ongoing hospitalization to trend liver function test and decide intervention Quality Stroke Does the patient have a stroke diagnosis?: No VTE Prior VTE?: No VTE Risk Level:: Medical - moderate - high VTE Device Contraindication: Treatment Not Indicated VTE Drug Contraindication: N/A - Med Ordered
[2021-06-29 15:30] VITALS: BP 134/78; PULSE 76; RESP 16; TEMP 36.7; O2SAT 99
[2021-06-29] MEDS: Potassium Chloride Packet 20 MEQ PACKET 40 MEQ PO ×2 (15:32→18:06)
[2021-06-29 15:51] LABS: Glucose, Whole Blood 110 mg/dL (60-115)
[2021-06-29] MEDS: Warfarin Sodium 3 MG TABLET PO (18:08)
[2021-06-29 19:55] VITALS: BP 119/65; PULSE 64; RESP 14; TEMP 36.8; O2SAT 97
[2021-06-29 20:14] LABS: Glucose, Whole Blood 123 mg/dL (60-115)
[2021-06-29] MEDS: Atorvastatin Calcium 20 MG TABLET PO (22:26)
[2021-06-30] VITALS (7 sets, daily range): BP systolic 111–148; BP diastolic 64–80; PULSE 60–95; RESP 16–20; TEMP 36.5–37.1; O2SAT 93–98
[2021-06-30] MEDS: Zolpidem Tartrate 5 MG TABLET 10 MG PO (00:26)
[2021-06-30] MEDS: cephALEXin 500 MG CAPSULE PO (05:38)
[2021-06-30] MEDS: oxyCODONE HCl Immed Release 5 MG TABLET PO ×2 (05:38→12:41)
[2021-06-30 07:21] LABS: Glucose, Whole Blood 90 mg/dL (60-115)
[2021-06-30 07:22] LABS: INTERNATIONAL NORM RATIO 2.8 (0.9-1.1); Prothrombin Time 32.8 SEC (9.9-13.0)
[2021-06-30] MEDS: Metoprolol Tartrate 100 MG TABLET PO ×2 (09:35→20:52)
[2021-06-30] MEDS: buPROPion HCl XL 300 MG TAB.ER.24H PO (09:35)
[2021-06-30] MEDS: amLODIPine Besylate 10 MG TABLET PO (09:36)
[2021-06-30] MEDS: Furosemide 40 MG TABLET PO ×2 (09:36→18:32)
[2021-06-30] MEDS: Aspirin Enteric Coated 81 MG TABLET.DR PO (09:36)
[2021-06-30] MEDS: Potassium Chloride ER 20 MEQ TAB.ER.PRT 40 MEQ PO (09:36)
[2021-06-30] MEDS: hydrALAZINE HCl 25 MG TABLET PO ×2 (09:36→20:52)
[2021-06-30] MEDS: 0.9 % Sodium Chloride Flush 3 ML SYRINGE IVFLUSH ×2 (09:36→18:32)
[2021-06-30 11:23] LABS: Glucose, Whole Blood 116 mg/dL (60-115)
[2021-06-30] MEDS: Omeprazole 20 MG CAPSULE.DR PO (11:50)
[2021-06-30] MEDS: predniSONE 20 MG TABLET 40 MG PO (11:50)
[2021-06-30 16:00] LABS: Glucose, Whole Blood 142 mg/dL (60-115)
--- NOTE | 2021-06-30 18:03 | P.PNIM_ITS ---
Subjective Subjective Date of Service: 07/01/21 Interval History: complaining of right ankle pain, left shoulder pain, left knee pain, denies fever chills, patient provide history of fall but denies ankle injury, he fell and landed on his buttocks, denies abdominal pain, denies nausea , no vomiting tolerating diet. Review of Systems [employer] headache, no dizzines CVS no chest pain no dysuria Review of Systems: Yes all other systems are reviewed and are negative Physical Exam Vital Signs: Vital Signs: Last Vital Signs Temp 98.7 F 06/30/21 15:11 Pulse 95 06/30/21 15:11 Resp 20 06/30/21 15:11 BP 148/80 H 06/30/21 15:11 Pulse Ox 97 06/30/21 15:11 BMI result Body Mass Index 42.4 Const: Other: General awake alert x3, no acute distress. Neck no JVD. CVS regular rate rhythm, Respiratory lungs clear to auscultation, no respiratory distress, no wheeze, no rhonchi. Gastrointestinal abdomen soft, nontender, bowel sounds audible Extremities right ankle mild swelling / redness extending towards dorsum of right foot with positive warmth and tenderness to palpation left knee normal examination no redness no warmth, no effusion Neuro nonfocal psych appropriate affect Objective Data Active Medications Acetaminophen (Acetaminophen 325 Mg Tablet) 650 mg PO Q6H PRN PRN Reason: Headache Last Admin: 06/27/21 12:57 Dose: 650 mg Documented by: LORNA Amlodipine Besylate (Amlodipine Besylate 10 Mg Tablet) 10 mg PO DAILY [facility]; Protocol Last Admin: 06/30/21 09:36 Dose: 10 mg Documented by: JAN Aspirin (Aspirin Enteric Coated 81 Mg Tablet.Dr) 81 mg PO DAILY [facility] Last Admin: 06/30/21 09:36 Dose: 81 mg Documented by: JAN Atorvastatin Calcium (Atorvastatin Calcium 20 Mg Tablet) 20 mg PO BEDTIME [facility] Last Admin: 06/29/21 22:26 Dose: 20 mg Documented by: SONIA Bupropion HCl (Bupropion Hcl Xl 300 Mg Tab.Er.24h) 300 mg PO DAILY [facility] Last Admin: 06/30/21 09:35 Dose: 300 mg Documented by: JAN Cephalexin HCl (Cephalexin 500 Mg Capsule) 500 mg PO Q12H [facility] Last Admin: 06/30/21 05:38 Dose: 500 mg Documented by: SONIA Dextrose (Dextrose 50 % 25 Gm/50 Ml Syringe) 25 gm IVPUSH Q15M PRN; Protocol PRN Reason: per Hypoglycemia Standing Ord. Doxycycline Hyclate (Doxycycline Hyclate 100 Mg Tablet) 100 mg PO Q12H [facility] Last Admin: 06/30/21 05:38 Dose: 100 mg Documented by: SONIA Furosemide (Furosemide 40 Mg Tablet) 40 mg PO BIDWM [facility]; Protocol Last Admin: 06/30/21 09:36 Dose: 40 mg Documented by: JAN Glucose (Glucose Gel 15 Gm Gel..Gram.) 15 gm PO Q15M PRN; Protocol PRN Reason: per Hypoglycemia Standing Ord. Hydralazine HCl (Hydralazine Hcl 25 Mg Tablet) 25 mg PO BID [facility]; Protocol Last Admin: 06/30/21 09:36 Dose: 25 mg Documented by: JAN Insulin Human Lispro (Insulin Lispro 100 Unit/Ml 3 Ml Vial) 0 unit SUBCUT QIDACHS [facility]; Protocol Last Admin: 06/30/21 16:07 Dose: Not Given Documented by: JAN Non-Admin Reason: IV Running Metoprolol Tartrate (Metoprolol Tartrate 100 Mg Tablet) 100 mg PO BID [facility]; Protocol Last Admin: 06/30/21 09:35 Dose: 100 mg Documented by: JAN Non-Formulary Medication (Ramelteon) 8 mg PO BEDTIME [facility] Omeprazole (Omeprazole 20 Mg Federico.) 20 mg PO DAILY@0630 [facility] Last Admin: 06/30/21 11:50 Dose: 20 mg Documented by: JAN Pharmacy Consult (Consult Rx Perform Med Rec) 1 each MISCELLANE ONCE PRN PRN Reason: Consult order Prednisone (Prednisone 20 Mg Tablet) 40 mg PO DAILY [facility] Last Admin: 06/30/21 11:50 Dose: 40 mg Documented by: JAN Sodium Chloride (0.9 % Sodium Chloride Flush 3 Ml Syringe) 3 ml IVFLUSH QSHIFT [facility] Last Admin: 06/30/21 09:36 Dose: 3 ml Documented by: JAN Warfarin Sodium (Warfarin Sodium 3 Mg Tablet) 3 mg PO DAILY@1800 [facility] Last Admin: 06/29/21 18:08 Dose: 3 mg Documented by: DOBROB Zolpidem Tartrate (Zolpidem Tartrate 5 Mg Tablet) 10 mg PO BEDTIME PRN PRN Reason: Insomnia Last Admin: 06/30/21 00:26 Dose: 10 mg Documented by: ANDERM Labs CBC & Chem 7: 06/29/21 06:37 07/01/21 06:40 Labs: Laboratory Results - last 24 hr 06/29/21 06/30/21 06/30/21 19:57 06:51 07:07 PT 32.8 H INR 2.8 H POC Glucose 123 H 90 06/30/21 06/30/21 10:58 15:57 PT INR POC Glucose 116 H 142 H Assessment and Plan (1) COVID-19: Status: Acute (2) Abnormal LFTs: Status: Acute (3) Atrial fibrillation: Status: Acute Plan 61-year-old female with a past medical history of hypertension, hyperlipidemia, diabetes, CHF, AFib presented to the hospital with a chief complaint of generalized weakness/falls; found to have mild elevation of his transaminases; ventricular response rate acceptable 1. Generalized Weakness (multifactorial with COVID-19) -continue supportive therapies.PT Recommend STR; referrals out 2. Choledocholithiasis/transaminitis -enzymes normalized -continue to trend LFTs 3. Atrial fibrillation -acceptable rate control on current therapies, continue Coumadin INR therapeutic 4. Diabetes type 2 - blood sugars stable less than 150,continue with insulin correctional scale and ADA diet 5. Hypokalemia potassium 3.1 likely due to Lasix will replace and follow BMP 6. left elbow cellulitis on Keflex and doxycycline, left elbow healed, will DC antibiotics 7. Right ankle pain swelling and redness question etiology rule out ankle fracture, has been on antibiotic for 10 days with no improvement, question acute gout will place on prednisone and follow clinical course. DVT prophylaxis on Coumadin Full code Requires ongoing hospitalization due to acute right ankle pain, with difficulty in weight-bearing and ambulation need further workup and treatment. Quality Stroke Does the patient have a stroke diagnosis?: No VTE Prior VTE?: No VTE Risk Level:: Medical - moderate - high VTE Device Contraindication: Treatment Not Indicated VTE Drug Contraindication: N/A - Med Ordered
[2021-06-30] MEDS: Acetaminophen 325 MG TABLET 650 MG PO (18:31)
[2021-06-30] MEDS: Warfarin Sodium 3 MG TABLET PO (18:32)
[2021-06-30 19:43] LABS: Glucose, Whole Blood 164 mg/dL (60-115)
[2021-06-30] MEDS: Atorvastatin Calcium 20 MG TABLET PO (20:52)
[2021-07-01] VITALS (7 sets, daily range): BP systolic 119–132; BP diastolic 56–86; PULSE 69–84; RESP 18–20; TEMP 36.4–37.5; O2SAT 97–98
[2021-07-01] MEDS: 0.9 % Sodium Chloride Flush 3 ML SYRINGE IVFLUSH ×3 (00:07→16:51)
[2021-07-01] MEDS: Zolpidem Tartrate 5 MG TABLET 10 MG PO (01:55)
--- NOTE | 2021-07-01 02:25 | PC.NURSE ---
Addendum entered by Juan Castanon RN 07/01/21 05:47: VOIDED TOTAL 1000ml 11PM-PRESENT...CURRENTLY DENIES URGE TO VOID Original Note: PER SHIFT REPORT PATIENT BLADDER SCANNED 2300 FOR 700ml D/T INABILITY TO VOID DESPITE URGE...CARE ASSUMED 23:15...ORDER FOR CATHETERIZATION PLACED..PATIENT VOIDED 200ml AND 350ml with RESOLUTION OF URGE TO VOID....DECLINES CATHETERIZATION AT PRESENT
[2021-07-01] MEDS: Omeprazole 20 MG CAPSULE.DR PO (05:30)
[2021-07-01 06:56] LABS: INTERNATIONAL NORM RATIO 3.2 (0.9-1.1); Prothrombin Time 37.4 SEC (9.9-13.0)
[2021-07-01 07:08] LABS: Potassium 3.4 mmol/L (3.3-5.1)
[2021-07-01 07:23] LABS: Glucose, Whole Blood 81 mg/dL (60-115)
[2021-07-01] MEDS: Furosemide 40 MG TABLET PO ×2 (09:24→16:52)
[2021-07-01] MEDS: buPROPion HCl XL 300 MG TAB.ER.24H PO (09:24)
[2021-07-01] MEDS: hydrALAZINE HCl 25 MG TABLET PO ×2 (09:24→20:09)
[2021-07-01] MEDS: Aspirin Enteric Coated 81 MG TABLET.DR PO (09:24)
[2021-07-01] MEDS: amLODIPine Besylate 10 MG TABLET PO (09:24)
[2021-07-01] MEDS: Metoprolol Tartrate 100 MG TABLET PO ×2 (09:24→20:09)
[2021-07-01] MEDS: predniSONE 20 MG TABLET 40 MG PO (09:24)
--- NOTE | 2021-07-01 10:04 | MHC.CM.PN ---
Male 61 DX Covid+ Cholelithiasis STR is planned when the patient is covid recovered. Anticipate discharge this weekend. He will transport via S
[2021-07-01 11:46] LABS: Glucose, Whole Blood 114 mg/dL (60-115)
--- NOTE | 2021-07-01 15:05 | HO.PM.IMPN ---
Subjective Subjective Date of Service: 07/01/21 Interval History: Persistent right ankle ppain and swelling mild improvement since admission, denies fever chills, no other acute symptoms, continue to feel weak , no other acute issues overnight. 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 no dysuria Review of Systems: Yes all other systems are reviewed and are negative Physical Exam Vital Signs: Vital Signs: Last Vital Signs Temp 97.5 F 07/01/21 11:08 Pulse 84 07/01/21 11:56 Resp 20 07/01/21 11:08 BP 132/66 07/01/21 11:56 Pulse Ox 98 07/01/21 11:56 BMI result Body Mass Index 42.4 Const: Other: General? awake alert x3, no acute distress.? Neck? no JVD. CVS? regular rate rhythm, Respiratory lungs clear to auscultation, no respiratory distress, no wheeze, no rhonchi. Gastrointestinal abdomen soft, nontender, bowel sounds audible Extremities? right ankle mild swelling, bruising / redness extending towards dorsum of right foot with positive warmth and tenderness to palpation slightly better since yesterday left knee normal examination no redness no warmth, no effusion Neuro nonfocal psych appropriate affect Objective Data Active Medications Acetaminophen (Acetaminophen 325 Mg Tablet) 650 mg PO Q6H PRN PRN Reason: Headache Last Admin: 06/30/21 18:31 Dose: 650 mg Documented by: JAN Amlodipine Besylate (Amlodipine Besylate 10 Mg Tablet) 10 mg PO DAILY [facility]; Protocol Last Admin: 07/01/21 09:24 Dose: 10 mg Documented by: MARIAH Aspirin (Aspirin Enteric Coated 81 Mg Tablet.Dr) 81 mg PO DAILY [facility] Last Admin: 07/01/21 09:24 Dose: 81 mg Documented by: MARIAH Atorvastatin Calcium (Atorvastatin Calcium 20 Mg Tablet) 20 mg PO BEDTIME [facility] Last Admin: 06/30/21 20:52 Dose: 20 mg Documented by: JAN Bupropion HCl (Bupropion Hcl Xl 300 Mg Tab.Er.24h) 300 mg PO DAILY [facility] Last Admin: 07/01/21 09:24 Dose: 300 mg Documented by: MARIAH Dextrose (Dextrose 50 % 25 Gm/50 Ml Syringe) 25 gm IVPUSH Q15M PRN; Protocol PRN Reason: per Hypoglycemia Standing Ord. Furosemide (Furosemide 40 Mg Tablet) 40 mg PO BIDWM [facility]; Protocol Last Admin: 07/01/21 09:24 Dose: 40 mg Documented by: MARIAH Glucose (Glucose Gel 15 Gm Gel..Gram.) 15 gm PO Q15M PRN; Protocol PRN Reason: per Hypoglycemia Standing Ord. Hydralazine HCl (Hydralazine Hcl 25 Mg Tablet) 25 mg PO BID [facility]; Protocol Last Admin: 07/01/21 09:24 Dose: 25 mg Documented by: MARIAH Insulin Human Lispro (Insulin Lispro 100 Unit/Ml 3 Ml Vial) 0 unit SUBCUT QIDACHS [facility]; Protocol Last Admin: 07/01/21 12:25 Dose: Not Given Documented by: MARIAH Non-Admin Reason: No Insulin Coverage Metoprolol Tartrate (Metoprolol Tartrate 100 Mg Tablet) 100 mg PO BID [facility]; Protocol Last Admin: 07/01/21 09:24 Dose: 100 mg Documented by: MARIAH Omeprazole (Omeprazole 20 Mg Capsule.Dr) 20 mg PO DAILY@0630 [facility] Last Admin: 07/01/21 05:30 Dose: 20 mg Documented by: JON Pharmacy Consult (Consult Rx Perform Med Rec) 1 each MISCELLANE ONCE PRN PRN Reason: Consult order Prednisone (Prednisone 20 Mg Tablet) 40 mg PO DAILY [facility] Last Admin: 07/01/21 09:24 Dose: 40 mg Documented by: MARIAH Sodium Chloride (0.9 % Sodium Chloride Flush 3 Ml Syringe) 3 ml IVFLUSH [facility] Last Admin: 07/01/21 09:25 Dose: 3 ml Documented by: MARIAH Warfarin Sodium (Warfarin Sodium 1 Mg Tablet) 1 mg PO DAILY@1800 [facility] Zolpidem Tartrate (Zolpidem Tartrate 5 Mg Tablet) 10 mg PO BEDTIME PRN PRN Reason: Insomnia Last Admin: 07/01/21 01:55 Dose: 10 mg Documented by: JON Labs CBC & Chem 7: 06/29/21 06:37 07/01/21 06:40 Labs: Laboratory Results - last 24 hr 06/30/21 06/30/21 07/01/21 15:57 19:39 06:40 PT 37.4 H INR 3.2 H POC Glucose 142 H 164 H 07/01/21 07/01/21 07:17 11:00 PT INR POC Glucose 81 114 Assessment and Plan (1) COVID-19: Status: Acute (2) Abnormal LFTs: Status: Acute (3) Atrial fibrillation: Status: Acute Plan 61-year-old female with a past medical history of hypertension, hyperlipidemia, diabetes, CHF, AFib presented to the hospital with a chief complaint of generalized weakness/falls; found to have mild elevation of his transaminases; ventricular response rate acceptable 1. Generalized Weakness (multifactorial with COVID-19) -continue supportive therapies.PT Recommend STR; referrals out 2. Choledocholithiasis/transaminitis -enzymes normalized -continue to trend LFTs 3. Atrial fibrillation -acceptable rate control on current therapies, continue Coumadin INR therapeutic 4. Diabetes type 2 - blood sugars stable less than 150,continue with insulin correctional scale and ADA diet 5. Hypokalemia repleted, likely due to Lasix 6. left elbow cellulitis resolved finished course of Keflex and doxycycline 7. Right ankle pain swelling and redness ankle xray showed no fracture, finish course of antibiotics for 10 days with no improvement, likely acute gout on prednisone, follow clinical course. DVT prophylaxis on Coumadin, will reduce dose of Coumadin from 3 mg to 1 mg due to elevated INR Full code Requires ongoing hospitalization due to acute right ankle pain, with difficulty in weight-bearing and ambulation need further workup and treatment. Quality Stroke Does the patient have a stroke diagnosis?: No VTE Prior VTE?: No VTE Risk Level:: Medical - moderate - high VTE Device Contraindication: Treatment Not Indicated VTE Drug Contraindication: N/A - Med Ordered
[2021-07-01 16:19] LABS: Glucose, Whole Blood 179 mg/dL (60-115)
[2021-07-01] MEDS: Potassium Chloride ER 20 MEQ TAB.ER.PRT PO (16:51)
[2021-07-01] MEDS: Warfarin Sodium 1 MG TABLET PO (16:52)
[2021-07-01] MEDS: Atorvastatin Calcium 20 MG TABLET PO (20:09)
[2021-07-01 20:19] LABS: Glucose, Whole Blood 195 mg/dL (60-115)
[2021-07-02] VITALS (7 sets, daily range): BP systolic 109–128; BP diastolic 57–83; PULSE 45–91; RESP 18–20; TEMP 36.3–36.7; O2SAT 94–99
[2021-07-02] MEDS: 0.9 % Sodium Chloride Flush 3 ML SYRINGE IVFLUSH ×3 (00:18→17:15)
--- NOTE | 2021-07-02 03:20 | PC.NURSE ---
after 12 mn pt c/o lower feet pain . tylenol was offered but refused states it doesn't work and he also asked for ambien but pt was explained per policy ambien can't be given after 11 pm md was notified but no answer ; pt didnt ring back.
[2021-07-02] MEDS: Omeprazole 20 MG CAPSULE.DR PO (04:35)
[2021-07-02] MEDS: oxyCODONE HCl Immed Release 5 MG TABLET PO (04:35)
[2021-07-02 06:55] LABS: Prothrombin Time 35.4 SEC (9.9-13.0)
[2021-07-02 07:42] LABS: Glucose, Whole Blood 83 mg/dL (60-115)
--- NOTE | 2021-07-02 09:01 | P.CDIC_ITS ---
CDI Concurrent Query Documentation Clarification: PHYSICIAN'S DOCUMENTATION REQUEST Date of Query: 07/02/21 0901 Patient Name: Fabio Bridges III Admit Date: 06/24/21 Dear Doctor, A review of the medical record indicates additional documentation may be needed. Please review below and update the documentation accordingly. Clinical Indicators: Risk Factors/Clinical Indicators/Treatments PN: Atrial fibrillation Acceptable rate contol on current therapies. Continue coumadin INR therapeutics. If possible, please provide further specificity regarding atrial fibrillation, such as: * Paroxysmal atrial fibrillation: terminates spontaneously or with intervention within 7 days of onset. * Persistent atrial fibrillation: episodes of continuous AF that last more than 7 days and do not self-terminate. * Long lasting persistent atrial fibrillation: episodes of continuous AF that last more than 12 months, * Chronic or Permanent atrial fibrillation: when a decision has been made to accept the presence of AF and there is no further attempt to restore or maintain sinus rhythm. * Other (please specify) * Unable to determine Use of terms such as suspected, likely, concern for, or probable (associated with a specific diagnosis that is being evaluated, monitored, or treated as if it exists) are acceptable and can be coded in the inpatient setting, when documented at the time of discharge. Thank you, Niki Mcginnis [facility], CDIS Extension: [phone] Please use your independent medical judgment in providing your response. THIS QUERY IS PART OF THE PERMANENT MEDICAL RECORD Provider Response: Other Other Diagnosis: Chronic persistent atrial fibrillation
[2021-07-02] MEDS: predniSONE 20 MG TABLET 40 MG PO (09:45)
[2021-07-02] MEDS: Furosemide 40 MG TABLET PO ×2 (09:46→17:14)
[2021-07-02] MEDS: Aspirin Enteric Coated 81 MG TABLET.DR PO (09:46)
[2021-07-02] MEDS: amLODIPine Besylate 10 MG TABLET PO (09:46)
[2021-07-02] MEDS: buPROPion HCl XL 300 MG TAB.ER.24H PO (09:46)
[2021-07-02] MEDS: hydrALAZINE HCl 25 MG TABLET PO ×2 (09:46→20:31)
[2021-07-02] MEDS: Metoprolol Tartrate 100 MG TABLET PO ×2 (09:46→20:31)
[2021-07-02] MEDS: Potassium Chloride ER 20 MEQ TAB.ER.PRT PO (09:46)
[2021-07-02 12:09] LABS: Glucose, Whole Blood 119 mg/dL (60-115)
[2021-07-02 15:57] LABS: Glucose, Whole Blood 184 mg/dL (60-115)
--- NOTE | 2021-07-02 16:42 | P.PNIM_ITS ---
Subjective Subjective Date of Service: 07/02/21 Interval History: Complaining of mild cough, right ankle pain, no fevers no chills no other acute issues overnight. 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 awake alert x3, no acute distress.? Neck? no JVD. CVS? regular rate rhythm, Respiratory lungs clear to auscultation, no respiratory distress, no wheeze, no rhonchi. Gastrointestinal abdomen soft, nontender, bowel sounds audible Extremities? right ankle mild swelling, bruising / fading hyperemia significantly better since yesterday left knee normal examination no redness no warmth, no effusion Neuro nonfocal psych appropriate affect Objective Data Active Medications Acetaminophen (Acetaminophen 325 Mg Tablet) 650 mg PO Q6H PRN PRN Reason: Headache Last Admin: 06/30/21 18:31 Dose: 650 mg Documented by: JAN Amlodipine Besylate (Amlodipine Besylate 10 Mg Tablet) 10 mg PO DAILY [facility]; Protocol Last Admin: 07/02/21 09:46 Dose: 10 mg Documented by: REJI Aspirin (Aspirin Enteric Coated 81 Mg Tablet.) 81 mg PO DAILY [facility] Last Admin: 07/02/21 09:46 Dose: 81 mg Documented by: REJI Atorvastatin Calcium (Atorvastatin Calcium 20 Mg Tablet) 20 mg PO BEDTIME [facility] Last Admin: 07/01/21 20:09 Dose: 20 mg Documented by: LAZARA Bupropion HCl (Bupropion Hcl Xl 300 Mg Tab.Er.24h) 300 mg PO DAILY [facility] Last Admin: 07/02/21 09:46 Dose: 300 mg Documented by: REJI Dextrose (Dextrose 50 % 25 Gm/50 Ml Syringe) 25 gm IVPUSH Q15M PRN; Protocol PRN Reason: per Hypoglycemia Standing Ord. Furosemide (Furosemide 40 Mg Tablet) 40 mg PO BIDWM [facility]; Protocol Last Admin: 07/02/21 09:46 Dose: 40 mg Documented by: REJI Glucose (Glucose Gel 15 Gm Gel..Gram.) 15 gm PO Q15M PRN; Protocol PRN Reason: per Hypoglycemia Standing Ord. Hydralazine HCl (Hydralazine Hcl 25 Mg Tablet) 25 mg PO BID [facility]; Protocol Last Admin: 07/02/21 09:46 Dose: 25 mg Documented by: REJI Insulin Human Lispro (Insulin Lispro 100 Unit/Ml 3 Ml Vial) 0 unit SUBCUT QIDACHS [facility]; Protocol Last Admin: 07/02/21 12:32 Dose: Not Given Documented by: REJI Non-Admin Reason: No Insulin Coverage Metoprolol Tartrate (Metoprolol Tartrate 100 Mg Tablet) 100 mg PO BID [facility]; Protocol Last Admin: 07/02/21 09:46 Dose: 100 mg Documented by: REJI Omeprazole (Omeprazole 20 Mg Capsule.Dr) 20 mg PO DAILY@0630 [facility] Last Admin: 07/02/21 04:35 Dose: 20 mg Documented by: ABI Oxycodone HCl (Oxycodone Hcl Immed Release 5 Mg Tablet) 5 mg PO Q6H PRN PRN Reason: Breakthrough Pain Last Admin: 07/02/21 04:35 Dose: 5 mg Documented by: ABI Pharmacy Consult (Consult Rx Perform Med Rec) 1 each MISCELLANE ONCE PRN PRN Reason: Consult order Potassium Chloride (Potassium Chloride Er 20 Meq Tab.Er.Prt) 20 meq PO DAILY [facility] Last Admin: 07/02/21 09:46 Dose: 20 meq Documented by: REJI Prednisone (Prednisone 20 Mg Tablet) 40 mg PO DAILY [facility] Last Admin: 07/02/21 09:45 Dose: 40 mg Documented by: REJI Sodium Chloride (0.9 % Sodium Chloride Flush 3 Ml Syringe) 3 ml IVFLUSH QSHIFT [facility] Last Admin: 07/02/21 09:46 Dose: 3 ml Documented by: REJI Warfarin Sodium (Warfarin Sodium 1 Mg Tablet) 1 mg PO DAILY@1800 [facility] Last Admin: 07/01/21 16:52 Dose: 1 mg Documented by: LAZARA Zolpidem Tartrate (Zolpidem Tartrate 5 Mg Tablet) 10 mg PO BEDTIME PRN PRN Reason: Insomnia Last Admin: 07/01/21 01:55 Dose: 10 mg Documented by: JON Labs CBC & Chem 7: 06/29/21 06:37 07/01/21 06:40 Labs: Laboratory Results - last 24 hr 07/01/21 07/02/21 07/02/21 20:14 06:13 07:16 PT 35.4 H INR 3.0 H POC Glucose 195 H 83 07/02/21 07/02/21 11:46 15:53 PT INR POC Glucose 119 H 184 H Assessment and Plan (1) COVID-19: Status: Acute (2) Abnormal LFTs: Status: Acute (3) Atrial fibrillation: Status: Acute Plan 61-year-old female with a past medical history of hypertension, hyperlipidemia, diabetes, CHF, AFib presented to the hospital with a chief complaint of generalized weakness/falls; found to have mild elevation of his transaminases; ventricular response rate acceptable 1. Generalized Weakness (multifactorial with COVID-19) -mild shortness of breath and cough no hypoxia, continue supportive therapies.PT Recommend STR; referrals out 2. Choledocholithiasis/transaminitis -enzymes normalized, no abdominal pain 3. Chronic persistent Atrial fibrillation -acceptable rate control on current therapies, INR improved from 3.2-3 today co ntinue Coumadin follow INR will place back on Coumadin 2 mg 4. Diabetes type 2 - blood sugars stable less than 150,continue with insulin correctional scale and ADA diet 5. Hypokalemia repleted, likely due to Lasix 6. left elbow cellulitis resolved finished course of Keflex and doxycycline 7. Right ankle pain swelling and redness ankle xray showed no fracture, finish course of antibiotics for 10 days with no improvement, likely acute gout on prednisone, symptoms improving. DVT prophylaxis on Coumadin, follow PT INR Full code Requires ongoing hospitalization due to acute right ankle pain, with difficulty in weight-bearing and ambulation need safe discharge nurse case management looking for rehab bed. Quality Stroke Does the patient have a stroke diagnosis?: No VTE Prior VTE?: No VTE Risk Level:: Medical - moderate - high VTE Device Contraindication: Treatment Not Indicated VTE Drug Contraindication: N/A - Med Ordered
[2021-07-02] MEDS: Warfarin Sodium 2 MG TABLET PO (17:14)
[2021-07-02 19:50] LABS: Glucose, Whole Blood 186 mg/dL (60-115)
[2021-07-02] MEDS: Atorvastatin Calcium 20 MG TABLET PO (20:31)
[2021-07-02] MEDS: Zolpidem Tartrate 5 MG TABLET 10 MG PO (22:02)
[2021-07-03] VITALS (7 sets, daily range): BP systolic 101–132; BP diastolic 56–77; PULSE 64–80; RESP 18–20; TEMP 35.8–36.7; O2SAT 97–100
[2021-07-03] MEDS: 0.9 % Sodium Chloride Flush 3 ML SYRINGE IVFLUSH ×4 (00:17→22:16)
[2021-07-03] MEDS: oxyCODONE HCl Immed Release 5 MG TABLET PO ×3 (00:20→18:12)
[2021-07-03] MEDS: Omeprazole 20 MG CAPSULE.DR PO (06:01)
[2021-07-03 06:54] LABS: INTERNATIONAL NORM RATIO 2.9 (0.9-1.1); Prothrombin Time 33.2 SEC (9.9-13.0)
[2021-07-03 07:38] LABS: Glucose, Whole Blood 83 mg/dL (60-115)
--- NOTE | 2021-07-03 09:47 | P.PNIM_ITS ---
Subjective Subjective Date of Service: 07/03/21 Interval History: Complaining of right foot burning sensation otherwise pain is improving, no other acute events overnight, no fevers, no chills tolerating diet. 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 no dysuria Review of Systems: Yes all other systems are reviewed and are negative Review of Systems: Yes all other systems are reviewed and are negative Physical Exam Vital Signs: Vital Signs: Last Vital Signs Temp 97.6 F 07/03/21 08:00 Pulse 64 07/03/21 09:30 Resp 19 07/03/21 08:00 BP 116/64 07/03/21 09:30 Pulse Ox 98 07/03/21 09:30 BMI result Body Mass Index 42.4 Const: Other: General? awake alert x3, no acute distress.? Neck? no JVD. CVS? regular rate rhythm, Respiratory lungs clear to auscultation, no respiratory distress, no wheeze, no rhonchi. Gastrointestinal abdomen soft, nontender, bowel sounds audible Extremities? right ankle redness and swelling improved noted to have small bruise, persistent tenderness to palpation Neuro nonfocal psych appropriate affect Objective Data Active Medications Acetaminophen (Acetaminophen 325 Mg Tablet) 650 mg PO Q6H PRN PRN Reason: Headache Last Admin: 06/30/21 18:31 Dose: 650 mg Documented by: JAN Amlodipine Besylate (Amlodipine Besylate 10 Mg Tablet) 10 mg PO DAILY [facility]; Protocol Last Admin: 07/02/21 09:46 Dose: 10 mg Documented by: REJI Aspirin (Aspirin Enteric Coated 81 Mg Tablet.) 81 mg PO DAILY [facility] Last Admin: 07/02/21 09:46 Dose: 81 mg Documented by: REJI Atorvastatin Calcium (Atorvastatin Calcium 20 Mg Tablet) 20 mg PO BEDTIME [facility] Last Admin: 07/02/21 20:31 Dose: 20 mg Documented by: LAZARA Bupropion HCl (Bupropion Hcl Xl 300 Mg Tab.Er.24h) 300 mg PO DAILY [facility] Last Admin: 07/02/21 09:46 Dose: 300 mg Documented by: REJI Dextrose (Dextrose 50 % 25 Gm/50 Ml Syringe) 25 gm IVPUSH Q15M PRN; Protocol PRN Reason: per Hypoglycemia Standing Ord. Furosemide (Furosemide 40 Mg Tablet) 40 mg PO BIDWM [facility]; Protocol Last Admin: 07/02/21 17:14 Dose: 40 mg Documented by: LAZARA Glucose (Glucose Gel 15 Gm Gel..Gram.) 15 gm PO Q15M PRN; Protocol PRN Reason: per Hypoglycemia Standing Ord. Hydralazine HCl (Hydralazine Hcl 25 Mg Tablet) 25 mg PO BID [facility]; Protocol Last Admin: 07/02/21 20:31 Dose: 25 mg Documented by: LAZARA Insulin Human Lispro (Insulin Lispro 100 Unit/Ml 3 Ml Vial) 0 unit SUBCUT QIDACHS [facility]; Protocol Last Admin: 07/03/21 08:19 Dose: Not Given Documented by: [place] Non-Admin Reason: No Insulin Coverage Metoprolol Tartrate (Metoprolol Tartrate 100 Mg Tablet) 100 mg PO BID [facility]; Protocol Last Admin: 07/02/21 20:31 Dose: 100 mg Documented by: LAZARA Omeprazole (Omeprazole 20 Mg Capsule.Dr) 20 mg PO DAILY@0630 [facility] Last Admin: 07/03/21 06:01 Dose: 20 mg Documented by: ABI Oxycodone HCl (Oxycodone Hcl Immed Release 5 Mg Tablet) 5 mg PO Q6H PRN PRN Reason: Breakthrough Pain Last Admin: 07/03/21 00:20 Dose: 5 mg Documented by: ABI Pharmacy Consult (Consult Rx Perform Med Rec) 1 each MISCELLANE ONCE PRN PRN Reason: Consult order Potassium Chloride (Potassium Chloride Er 20 Meq Tab.Er.Prt) 20 meq PO DAILY [facility] Last Admin: 07/02/21 09:46 Dose: 20 meq Documented by: REJI Prednisone (Prednisone 20 Mg Tablet) 40 mg PO DAILY [facility] Last Admin: 07/02/21 09:45 Dose: 40 mg Documented by: REJI Sodium Chloride (0.9 % Sodium Chloride Flush 3 Ml Syringe) 3 ml IVFLUSH QSHIFT [facility] Last Admin: 07/03/21 00:17 Dose: 3 ml Documented by: ABI Warfarin Sodium (Warfarin Sodium 2 Mg Tablet) 2 mg PO DAILY@1800 [facility] Last Admin: 07/02/21 17:14 Dose: 2 mg Documented by: LAZARA Zolpidem Tartrate (Zolpidem Tartrate 5 Mg Tablet) 10 mg PO BEDTIME PRN PRN Reason: Insomnia Last Admin: 07/02/21 22:02 Dose: 10 mg Documented by: LAZARA Labs CBC & Chem 7: 06/29/21 06:37 07/01/21 06:40 Labs: Laboratory Results - last 24 hr 07/02/21 07/02/21 07/02/21 11:46 15:53 19:45 PT INR POC Glucose 119 H 184 H 186 H 07/03/21 07/03/21 06:18 07:35 PT 33.2 H INR 2.9 H POC Glucose 83 Assessment and Plan (1) COVID-19: Status: Acute (2) Abnormal LFTs: Status: Acute (3) Atrial fibrillation: Status: Acute Plan 61-year-old female with a past medical history of hypertension, hyperlipidemia, diabetes, CHF, AFib presented to the hospital with a chief complaint of generalized weakness/falls; found to have mild elevation of his transaminases; ventricular response rate acceptable 1. Generalized Weakness (multifactorial with COVID-19) Intermittent cough no hypoxia, continue supportive therapies.PT Recommend STR; referrals out 2. Choledocholithiasis/transaminitis - enzymes normalized, no abdominal pain 3. Chronic persistent Atrial fibrillation - acceptable rate control on current therapies, INR improved from 3.2-2.9 today continue Coumadin 2 mg daily home does 3 mg 4. Diabetes type 2 - blood sugars stable less than 150,continue with insulin correctional scale and ADA diet 5. Hypokalemia repleted, likely due to Lasix 6. left elbow cellulitis resolved finished course of Keflex and doxycycline 7. Right ankle pain swelling and redness ankle xray showed no fracture, finish course of antibiotics for 10 days with no improvement, likely acute gout and an kle sprain due to fall, on prednisone day4/7, symptoms improving Wean prednisone . DVT prophylaxis on Coumadin, follow PT INR Full code Requires ongoing hospitalization due to acute right ankle pain, with difficulty in weight-bearing and ambulation need safe discharge to rehab bilingual patient support caseworker mike daniel for rehab bed. Quality Stroke Does the patient have a stroke diagnosis?: No VTE Prior VTE?: No VTE Risk Level:: Medical - moderate - high VTE Device Contraindication: Treatment Not Indicated VTE Drug Contraindication: N/A - Med Ordered
[2021-07-03 11:06] LABS: Glucose, Whole Blood 128 mg/dL (60-115)
[2021-07-03] MEDS: hydrALAZINE HCl 25 MG TABLET PO (11:20)
[2021-07-03] MEDS: Potassium Chloride ER 20 MEQ TAB.ER.PRT PO (11:20)
[2021-07-03] MEDS: Furosemide 40 MG TABLET PO ×2 (11:20→18:12)
[2021-07-03] MEDS: amLODIPine Besylate 10 MG TABLET PO (11:21)
[2021-07-03] MEDS: buPROPion HCl XL 300 MG TAB.ER.24H PO (11:21)
[2021-07-03] MEDS: Metoprolol Tartrate 100 MG TABLET PO (11:21)
[2021-07-03] MEDS: Aspirin Enteric Coated 81 MG TABLET.DR PO (11:21)
--- NOTE | 2021-07-03 12:35 | MHC.CM.PN ---
IMM 07/03/21 Male Covid +. Tomorrow is day 11. He is now considered covid recovered. He has a few facilities following for covid recovered status. A clinical update has been sent. A message to the referred facilites that he is ready to discharge tomorrow. T/W requested update on bed availability for dc tomorrow. No bed availability has been the response so far.
[2021-07-03 15:52] LABS: Glucose, Whole Blood 120 mg/dL (60-115)
[2021-07-03] MEDS: Warfarin Sodium 2 MG TABLET PO (18:12)
[2021-07-03 19:51] LABS: Glucose, Whole Blood 137 mg/dL (60-115)
[2021-07-03] MEDS: Atorvastatin Calcium 20 MG TABLET PO (22:13)
[2021-07-03] MEDS: Zolpidem Tartrate 5 MG TABLET 10 MG PO (22:13)
[2021-07-04 03:49] VITALS: BP 128/76; PULSE 85; RESP 18; TEMP 36.7; O2SAT 98
[2021-07-04 07:22] VITALS: BP 126/76; PULSE 92; RESP 18; TEMP 36.7; O2SAT 97
[2021-07-04 07:29] LABS: Glucose, Whole Blood 106 mg/dL (60-115)
[2021-07-04 09:19] LABS: INTERNATIONAL NORM RATIO 3.1 (0.9-1.1); Prothrombin Time 35.9 SEC (9.9-13.0)
[2021-07-04] MEDS: Potassium Chloride ER 20 MEQ TAB.ER.PRT PO (10:25)
[2021-07-04] MEDS: Furosemide 40 MG TABLET PO ×2 (10:25→17:59)
[2021-07-04] MEDS: Omeprazole 20 MG CAPSULE.DR PO (10:25)
[2021-07-04] MEDS: predniSONE 10 MG TABLET 30 MG PO (10:26)
[2021-07-04] MEDS: Aspirin Enteric Coated 81 MG TABLET.DR PO (10:26)
[2021-07-04] MEDS: buPROPion HCl XL 300 MG TAB.ER.24H PO (10:26)
[2021-07-04] MEDS: hydrALAZINE HCl 25 MG TABLET PO ×2 (10:26→21:30)
[2021-07-04] MEDS: amLODIPine Besylate 10 MG TABLET PO (10:26)
[2021-07-04] MEDS: Metoprolol Tartrate 100 MG TABLET PO ×2 (10:26→21:30)
[2021-07-04] MEDS: 0.9 % Sodium Chloride Flush 3 ML SYRINGE IVFLUSH ×3 (10:28→21:30)
[2021-07-04] MEDS: oxyCODONE HCl Immed Release 5 MG TABLET PO ×2 (10:33→23:14)
[2021-07-04 11:29] VITALS: BP 130/58; PULSE 85; RESP 18; TEMP 36.9; O2SAT 95
[2021-07-04 11:33] LABS: Glucose, Whole Blood 107 mg/dL (60-115)
[2021-07-04 15:06] VITALS: BP 138/69; PULSE 63; RESP 20; TEMP 36.8; O2SAT 98
--- NOTE | 2021-07-04 15:12 | P.PNIM_ITS ---
Subjective Subjective Date of Service: 07/04/21 Interval History: Complaining of left elbow pain, right foot pain is improving, no other acute events overnight Review of Systems Review of Systems: Yes all other systems are reviewed and are negative Physical Exam Vital Signs: Vital Signs: Last Vital Signs Temp 98.2 F 07/04/21 15:06 Pulse 63 07/04/21 15:06 Resp 20 07/04/21 15:06 BP 138/69 07/04/21 15:06 Pulse Ox 98 07/04/21 15:06 BMI result Body Mass Index 42.4 Const: Other: General? awake alert x3, no acute distress.? Neck? no JVD. CVS? regular rate rhythm, Respiratory lungs clear to auscultation, no respiratory distress, no wheeze, no rhonchi. Gastrointestinal abdomen soft, nontender, bowel sounds audible Extremities? right ankle redness and swelling resolved, small bruise persists Left elbow normal examination no redness no swelling Neuro nonfocal psych appropriate affect Objective Data Active Medications Acetaminophen (Acetaminophen 325 Mg Tablet) 650 mg PO Q6H PRN PRN Reason: Headache Last Admin: 06/30/21 18:31 Dose: 650 mg Documented by: JAN Amlodipine Besylate (Amlodipine Besylate 10 Mg Tablet) 10 mg PO DAILY [facility]; Protocol Last Admin: 07/04/21 10:26 Dose: 10 mg Documented by: JAN Aspirin (Aspirin Enteric Coated 81 Mg Tablet.) 81 mg PO DAILY [facility] Last Admin: 07/04/21 10:26 Dose: 81 mg Documented by: JAN Atorvastatin Calcium (Atorvastatin Calcium 20 Mg Tablet) 20 mg PO BEDTIME [facility] Last Admin: 07/03/21 22:13 Dose: 20 mg Documented by: DAMIAN Bupropion HCl (Bupropion Hcl Xl 300 Mg Tab.Er.24h) 300 mg PO DAILY [facility] Last Admin: 07/04/21 10:26 Dose: 300 mg Documented by: JAN Dextrose (Dextrose 50 % 25 Gm/50 Ml Syringe) 25 gm IVPUSH Q15M PRN; Protocol PRN Reason: per Hypoglycemia Standing Ord. Furosemide (Furosemide 40 Mg Tablet) 40 mg PO BIDWM [facility]; Protocol Last Admin: 07/04/21 10:25 Dose: 40 mg Documented by: JAN Glucose (Glucose Gel 15 Gm Gel..Gram.) 15 gm PO Q15M PRN; Protocol PRN Reason: per Hypoglycemia Standing Ord. Hydralazine HCl (Hydralazine Hcl 25 Mg Tablet) 25 mg PO BID [facility]; Protocol Last Admin: 07/04/21 10:26 Dose: 25 mg Documented by: JAN Insulin Human Lispro (Insulin Lispro 100 Unit/Ml 3 Ml Vial) 0 unit SUBCUT QIDACHS [facility]; Protocol Last Admin: 07/04/21 11:39 Dose: Not Given Documented by: JAN Non-Admin Reason: No Insulin Coverage Metoprolol Tartrate (Metoprolol Tartrate 100 Mg Tablet) 100 mg PO BID [facility]; Pro tocol Last Admin: 07/04/21 10:26 Dose: 100 mg Documented by: JAN Omeprazole (Omeprazole 20 Mg Capsule.Dr) 20 mg PO DAILY@0630 [facility] Last Admin: 07/04/21 10:25 Dose: 20 mg Documented by: JAN Oxycodone HCl (Oxycodone Hcl Immed Release 5 Mg Tablet) 5 mg PO Q6H PRN PRN Reason: Breakthrough Pain Last Admin: 07/04/21 10:33 Dose: 5 mg Documented by: JAN Pharmacy Consult (Consult Rx Perform Med Rec) 1 each MISCELLANE ONCE PRN PRN Reason: Consult order Potassium Chloride (Potassium Chloride Er 20 Meq Tab.Er.Prt) 20 meq PO DAILY [facility] Last Admin: 07/04/21 10:25 Dose: 20 meq Documented by: JAN Prednisone (Prednisone 10 Mg Tablet) 30 mg PO DAILY [facility] Last Admin: 07/04/21 10:26 Dose: 30 mg Documented by: JAN Sodium Chloride (0.9 % Sodium Chloride Flush 3 Ml Syringe) 3 ml IVFLUSH QSHIFT [facility] Last Admin: 07/04/21 10:28 Dose: 3 ml Documented by: JAN Warfarin Sodium (Warfarin Sodium 2 Mg Tablet) 2 mg PO DAILY@1800 [facility] Last Admin: 07/03/21 18:12 Dose: 2 mg Documented by: BR[place]N Labs CBC & Chem 7: 06/29/21 06:37 07/01/21 06:40 Labs: Laboratory Results - last 24 hr 07/03/21 07/03/21 07/04/21 15:48 19:43 07:23 PT INR POC Glucose 120 H 137 H 106 07/04/21 07/04/21 09:08 11:28 PT 35.9 H INR 3.1 H POC Glucose 107 Assessment and Plan (1) COVID-19: Status: Acute (2) Abnormal LFTs: Status: Acute (3) Atrial fibrillation: Status: Acute Plan 61-year-old female with a past medical history of hypertension, hyperlipidemia, diabetes, CHF, AFib presented to the hospital with a chief complaint of generalized weakness/falls; found to have mild elevation of his transaminases; ventricular response rate acceptable 1. Generalized Weakness (multifactorial with COVID-19) Intermittent cough no hypoxia, continue supportive therapies.PT Recommend S TR; social media community manager arranging for bed, referrals are out, strongly recommend to be out of bed to chair and to bed exercise 2. Choledocholithiasis/transaminitis - enzymes normalized, no abdominal pain 3. Chronic persistent Atrial fibrillation - acceptable rate control on current therapies, INR improved from 3.2-2.9 today continue Coumadin 2 mg daily home does 3 mg 4. Diabetes type 2 - blood sugars stable less than 150,continue with insulin correctional scale and ADA diet 5. Hypokalemia repleted, likely due to Lasix 6. left elbow cellulitis resolved finished course of Keflex and doxycycline , normal left elbow examination 7. Right ankle pain swelling and redness ankle xray showed no fracture, finish course of antibiotics for 10 days with no improvement, likely acute gout and ankle sprain due to fall, on prednisone day5/7, symptoms improving Wean prednisone . 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 Quality Stroke Does the patient have a stroke diagnosis?: No VTE Prior VTE?: No VTE Risk Level:: Medical - moderate - high VTE Device Contraindication: Treatment Not Indicated VTE Drug Contraindication: N/A - Med Ordered
[2021-07-04 15:59] LABS: Glucose, Whole Blood 157 mg/dL (60-115)
[2021-07-04] MEDS: Warfarin Sodium 2 MG TABLET PO (17:58)
[2021-07-04 19:08] VITALS: BP 127/72; PULSE 86; RESP 20; TEMP 36.7; O2SAT 98
[2021-07-04 19:30] LABS: Glucose, Whole Blood 183 mg/dL (60-115)
[2021-07-04] MEDS: Atorvastatin Calcium 20 MG TABLET PO (21:30)
[2021-07-04] MEDS: Zolpidem Tartrate 5 MG TABLET 10 MG PO (23:12)
[2021-07-04] MEDS: bisacodyL 5 MG TABLET.DR 10 MG PO (23:12)
[2021-07-04 23:27] VITALS: BP 123/72; PULSE 76; RESP 18; TEMP 36.6; O2SAT 98
[2021-07-05 04:00] VITALS: BP 116/68; PULSE 67; RESP 16; TEMP 36.4; O2SAT 97
[2021-07-05] MEDS: Omeprazole 20 MG CAPSULE.DR PO (05:50)
[2021-07-05 07:23] LABS: Prothrombin Time 35.2 SEC (9.9-13.0)
[2021-07-05 07:31] VITALS: BP 112/68; PULSE 66; RESP 16; TEMP 36.7; O2SAT 98
[2021-07-05 07:38] LABS: Glucose, Whole Blood 86 mg/dL (60-115)
[2021-07-05] MEDS: Potassium Chloride ER 20 MEQ TAB.ER.PRT PO (10:43)
[2021-07-05] MEDS: hydrALAZINE HCl 25 MG TABLET PO (10:44)
[2021-07-05] MEDS: 0.9 % Sodium Chloride Flush 3 ML SYRINGE IVFLUSH ×3 (10:44→22:01)
[2021-07-05] MEDS: Furosemide 40 MG TABLET PO ×2 (10:44→17:55)
[2021-07-05] MEDS: buPROPion HCl XL 300 MG TAB.ER.24H PO (10:44)
[2021-07-05] MEDS: amLODIPine Besylate 10 MG TABLET PO (10:44)
[2021-07-05] MEDS: Aspirin Enteric Coated 81 MG TABLET.DR PO (10:44)
[2021-07-05] MEDS: Metoprolol Tartrate 100 MG TABLET PO (10:44)
[2021-07-05] MEDS: predniSONE 20 MG TABLET PO (10:44)
[2021-07-05] MEDS: oxyCODONE HCl Immed Release 5 MG TABLET PO ×2 (10:52→22:01)
[2021-07-05 11:54] VITALS: BP 128/78; PULSE 69; RESP 20; TEMP 36.6; O2SAT 97
[2021-07-05 12:02] LABS: Glucose, Whole Blood 96 mg/dL (60-115)
--- NOTE | 2021-07-05 14:16 | HO.PM.IMPN ---
Subjective Subjective Date of Service: 07/05/21 Interval History: Feeling better left elbow pain has resolved, right ankle pain improved, no fever, no chills, no other acute issues overnight. Review of Systems Review of Systems: Yes all other systems are reviewed and are negative Physical Exam Vital Signs: Vital Signs: Last Vital Signs Temp 97.8 F 07/05/21 11:54 Pulse 69 07/05/21 11:54 Resp 20 07/05/21 11:54 BP 128/78 07/05/21 11:54 Pulse Ox 97 07/05/21 11:54 BMI result Body Mass Index 42.4 Const: Other: General? awake alert x3, no acute distress.? Neck? no JVD. CVS? regular rate rhythm, Respiratory lungs clear to auscultation, no respiratory distress, no wheeze, no rhonchi. Gastrointestinal abdomen soft, nontender, bowel sounds audible Extremities? right ankle redness and swelling resolved, small bruise persists Left elbow normal examination no redness no swelling Neuro nonfocal psych appropriate affect Objective Data Active Medications Acetaminophen (Acetaminophen 325 Mg Tablet) 650 mg PO Q6H PRN PRN Reason: Headache Last Admin: 06/30/21 18:31 Dose: 650 mg Documented by: JAN Amlodipine Besylate (Amlodipine Besylate 10 Mg Tablet) 10 mg PO DAILY [facility]; Protocol Last Admin: 07/05/21 10:44 Dose: 10 mg Documented by: JAN Aspirin (Aspirin Enteric Coated 81 Mg Tablet.) 81 mg PO DAILY [facility] Last Admin: 07/05/21 10:44 Dose: 81 mg Documented by: JAN Atorvastatin Calcium (Atorvastatin Calcium 20 Mg Tablet) 20 mg PO BEDTIME [facility] Last Admin: 07/04/21 21:30 Dose: 20 mg Documented by: SONIA Bisacodyl (Bisacodyl 5 Mg Tablet.) 10 mg PO BEDTIME PRN PRN Reason: Constipation Last Admin: 07/04/21 23:12 Dose: 10 mg Documented by: NAUMOC Bupropion HCl (Bupropion Hcl Xl 300 Mg Tab.Er.24h) 300 mg PO DAILY [facility] Last Admin: 07/05/21 10:44 Dose: 300 mg Documented by: JAN Dextrose (Dextrose 50 % 25 Gm/50 Ml Syringe) 25 gm IVPUSH Q15M PRN; Protocol PRN Reason: per Hypoglycemia Standing Ord. Furosemide (Furosemide 40 Mg Tablet) 40 mg PO BIDWM [facility]; Protocol Last Admin: 07/05/21 10:44 Dose: 40 mg Documented by: JAN Glucose (Glucose Gel 15 Gm Gel..Gram.) 15 gm PO Q15M PRN; Protocol PRN Reason: per Hypoglycemia Standing Ord. Hydralazine HCl (Hydralazine Hcl 25 Mg Tablet) 25 mg PO BID [facility]; Protocol Last Admin: 07/05/21 10:44 Dose: 25 mg Documented by: JAN Insulin Human Lispro (Insulin Lispro 100 Unit/Ml 3 Ml Vial) 0 unit SUBCUT QIDACHS [facility]; Protocol Last Admin: 07/05/21 12:18 Dose: Not Given Documented by: JAN Non-Admin Reason: No Insulin Coverage Metoprolol Tartrate (Metoprolol Tartrate 100 Mg Tablet) 100 mg PO BID [facility]; Protocol Last Admin: 07/05/21 10:44 Dose: 100 mg Documented by: JAN Omeprazole (Omeprazole 20 Mg Capsule.Dr) 20 mg PO DAILY@0630 [facility] Last Admin: 07/05/21 05:50 Dose: 20 mg Documented by: SONIA Oxycodone HCl (Oxycodone Hcl Immed Release 5 Mg Tablet) 5 mg PO Q6H PRN PRN Reason: Breakthrough Pain Last Admin: 07/05/21 10:52 Dose: 5 mg Documented by: JAN Pharmacy Consult (Consult Rx Perform Med Rec) 1 each MISCELLANE ONCE PRN PRN Reason: Consult order Potassium Chloride (Potassium Chloride Er 20 Meq Tab.Er.Prt) 20 meq PO DAILY [facility] Last Admin: 07/05/21 10:43 Dose: 20 meq Documented by: JAN Prednisone (Prednisone 20 Mg Tablet) 20 mg PO DAILY [facility] Last Admin: 07/05/21 10:44 Dose: 20 mg Documented by: JAN Sodium Chloride (0.9 % Sodium Chloride Flush 3 Ml Syringe) 3 ml IVFLUSH QSHIFT [facility] Last Admin: 07/05/21 10:44 Dose: 3 ml Documented by: JAN Warfarin Sodium (Warfarin Sodium 2 Mg Tablet) 2 mg PO DAILY@1800 [facility] Last Admin: 07/04/21 17:58 Dose: 2 mg Documented by: DOBROB Zolpidem Tartrate (Zolpidem Tartrate 5 Mg Tablet) 10 mg PO BEDTIME PRN PRN Reason: Insomnia Last Admin: 07/04/21 23:12 Dose: 10 mg Documented by: NAUMOC Labs CBC & Chem 7: 06/29/21 06:37 07/01/21 06:40 Labs: Laboratory Results - last 24 hr 07/04/21 07/04/21 07/05/21 15:56 19:26 07:03 PT 35.2 H INR 3.0 H POC Glucose 157 H 183 H 07/05/21 07/05/21 07:34 11:56 PT INR POC Glucose 86 96 Assessment and Plan (1) COVID-19: Status: Acute (2) Abnormal LFTs: Status: Acute (3) Atrial fibrillation: Status: Acute Plan 61-year-old female with a past medical history of hypertension, hyperlipidemia, diabetes, CHF, AFib presented to the hospital with a chief complaint of generalized weakness/falls; found to have mild elevation of his transaminases; ventricular response rate acceptable 1. Generalized Weakness (multifactorial with COVID-19) Intermittent cough no hypoxia, continue supportive therapies.PT Recommend STR; bilingual social worker arranging for bed, referrals are out, strongly recommend to be out of bed to chair and to bed exercise 2. Choledocholithiasis/transaminitis - enzymes normalized, no abdominal pain 3. Chronic persistent Atrial fibrillation - acceptable rate control on current therapies, INR improved from 3.2-2.9 today continue Coumadin 2 mg daily home does 3 mg 4. Diabetes type 2 - blood sugars stable less than 150,continue with insulin correctional scale and ADA diet 5. Hypokalemia repleted, likely due to Lasix 6. left elbow cellulitis resolved finished course of Keflex and doxycycline , normal left elbow examination 7. Right ankle pain swelling and redness resolved ankle xray showed no fracture, finish course of antibiotics for 10 days with no improvement, likely acute gout and ankle sprain due to fall, on prednisone day 6/7, DVT prophylaxis on Coumadin, follow PT INR, INR therapeutic Full code Requires ongoing hospitalization due to acute right ankle pain, COVID related weakness, with difficulty in weight-bearing and ambulation need safe discharge to rehab, therapeutic case manager looking for rehab bed. Quality Stroke Does the patient have a stroke diagnosis?: No VTE Prior VTE?: No VTE Risk Level:: Medical - moderate - high VTE Device Contraindication: Treatment Not Indicated VTE Drug Contraindication: N/A - Med Ordered
[2021-07-05 15:25] VITALS: BP 108/55; PULSE 85; RESP 18; TEMP 36.2; O2SAT 98
[2021-07-05 16:15] LABS: Glucose, Whole Blood 154 mg/dL (60-115)
[2021-07-05] MEDS: Warfarin Sodium 2 MG TABLET PO (17:56)
[2021-07-05 19:01] VITALS: BP 97/55; PULSE 63; RESP 18; TEMP 36.5; O2SAT 97
[2021-07-05 20:56] LABS: Glucose, Whole Blood 166 mg/dL (60-115)
[2021-07-05] MEDS: Zolpidem Tartrate 5 MG TABLET 10 MG PO (22:01)
[2021-07-05] MEDS: Atorvastatin Calcium 20 MG TABLET PO (22:01)
[2021-07-05 23:53] VITALS: BP 125/59; PULSE 74; RESP 18; TEMP 36.4; O2SAT 95
[2021-07-06 03:47] VITALS: BP 111/66; PULSE 71; RESP 18; TEMP 36.3; O2SAT 99
[2021-07-06] MEDS: Omeprazole 20 MG CAPSULE.DR PO (05:39)
[2021-07-06 07:22] LABS: Glucose, Whole Blood 87 mg/dL (60-115)
[2021-07-06 07:25] VITALS: BP 112/70; PULSE 74; RESP 20; TEMP 36.4; O2SAT 97
[2021-07-06] MEDS: Aspirin Enteric Coated 81 MG TABLET.DR PO (09:42)
[2021-07-06] MEDS: 0.9 % Sodium Chloride Flush 3 ML SYRINGE IVFLUSH ×3 (09:42→21:56)
[2021-07-06] MEDS: amLODIPine Besylate 10 MG TABLET PO (09:42)
[2021-07-06] MEDS: predniSONE 20 MG TABLET PO (09:42)
[2021-07-06] MEDS: Metoprolol Tartrate 100 MG TABLET PO ×2 (09:42→21:56)
[2021-07-06] MEDS: hydrALAZINE HCl 25 MG TABLET PO ×2 (09:42→21:55)
[2021-07-06] MEDS: buPROPion HCl XL 300 MG TAB.ER.24H PO (09:42)
[2021-07-06] MEDS: Furosemide 40 MG TABLET PO ×2 (09:42→17:31)
[2021-07-06] MEDS: Potassium Chloride ER 20 MEQ TAB.ER.PRT PO (09:42)
[2021-07-06] MEDS: oxyCODONE HCl Immed Release 5 MG TABLET PO (09:44)
[2021-07-06 11:17] LABS: Prothrombin Time 34.6 SEC (9.9-13.0)
[2021-07-06 11:30] LABS: Glucose, Whole Blood 133 mg/dL (60-115)
[2021-07-06 11:34] VITALS: BP 99/69; PULSE 75; RESP 20; TEMP 36.6; O2SAT 96
--- NOTE | 2021-07-06 14:30 | P.PNIM_ITS ---
Subjective Subjective Date of Service: 07/06/21 Interval History: No acute issues overnight, complaining of persistent right ankle pain but gradually improving no redness, no swelling, no fever, chills, tolerating diet, ambulating from bed to commode. Review of Systems Review of Systems: Yes all other systems are reviewed and are negative Physical Exam Vital Signs: Vital Signs: Last Vital Signs Temp 97.8 F 07/06/21 11:34 Pulse 75 07/06/21 11:34 Resp 20 07/06/21 11:34 BP 99/69 07/06/21 11:34 Pulse Ox 96 07/06/21 11:34 BMI result Body Mass Index 42.4 Const: Other: General? awake alert x3, no acute distress.? Neck? no JVD. CVS? regular rate rhythm, Respiratory lungs clear to auscultation, no respiratory distress, no wheeze, no rhonchi. Gastrointestinal abdomen soft, nontender, bowel sounds audible Extremities? right ankle redness and swelling resolved, small bruise persists Left elbow normal examination no redness no swelling Neuro nonfocal psych appropriate affect Objective Data Active Medications Acetaminophen (Acetaminophen 325 Mg Tablet) 650 mg PO Q6H PRN PRN Reason: Headache Last Admin: 06/30/21 18:31 Dose: 650 mg Documented by: JAN Amlodipine Besylate (Amlodipine Besylate 10 Mg Tablet) 10 mg PO DAILY [facility]; Pr otocol Last Admin: 07/06/21 09:42 Dose: 10 mg Documented by: JAN Aspirin (Aspirin Enteric Coated 81 Mg Tablet.) 81 mg PO DAILY [facility] Last Admin: 07/06/21 09:42 Dose: 81 mg Documented by: JAN Atorvastatin Calcium (Atorvastatin Calcium 20 Mg Tablet) 20 mg PO BEDTIME [facility] Last Admin: 07/05/21 22:01 Dose: 20 mg Documented by: ANDLEONELA Bisacodyl (Bisacodyl 5 Mg Tablet.) 10 mg PO BEDTIME PRN PRN Reason: Constipation Last Admin: 07/04/21 23:12 Dose: 10 mg Documented by: NAUMOC Bupropion HCl (Bupropion Hcl Xl 300 Mg Tab.Er.24h) 300 mg PO DAILY [facility] Last Admin: 07/06/21 09:42 Dose: 300 mg Documented by: JAN Dextrose (Dextrose 50 % 25 Gm/50 Ml Syringe) 25 gm IVPUSH Q15M PRN; Protocol PRN Reason: per Hypoglycemia Standing Ord. Furosemide (Furosemide 40 Mg Tablet) 40 mg PO BIDWM [facility]; Protocol Last Admin: 07/06/21 09:42 Dose: 40 mg Documented by: JAN Glucose (Glucose Gel 15 Gm Gel..Gram.) 15 gm PO Q15M PRN; Protocol PRN Reason: per Hypoglycemia Standing Ord. Hydralazine HCl (Hydralazine Hcl 25 Mg Tablet) 25 mg PO BID [facility]; Protocol Last Admin: 07/06/21 09:42 Dose: 25 mg Documented by: JAN Insulin Human Lispro (Insulin Lispro 100 Unit/Ml 3 Ml Vial) 0 unit SUBCUT QIDACHS [facility]; Protocol Last Admin: 07/06/21 11:33 Dose: Not Given Documented by: JAN Non-Admin Reason: No Insulin Coverage Metoprolol Tartrate (Metoprolol Tartrate 100 Mg Tablet) 100 mg PO BID [facility]; Protocol Last Admin: 07/06/21 09:42 Dose: 100 mg Documented by: JAN Omeprazole (Omeprazole 20 Mg Capsule.) 20 mg PO DAILY@0630 [facility] Last Admin: 07/06/21 05:39 Dose: 20 mg Documented by: SONIA Oxycodone HCl (Oxycodone Hcl Immed Release 5 Mg Tablet) 5 mg PO Q6H PRN PRN Reason: Breakthrough Pain Last Admin: 07/06/21 09:44 Dose: 5 mg Documented by: JAN Pharmacy Consult (Consult Rx Perform Med Rec) 1 each MISCELLANE ONCE PRN PRN Reason: Consult order Potassium Chloride (Potassium Chloride Er 20 Meq Tab.Er.Prt) 20 meq PO DAILY [facility] Last Admin: 07/06/21 09:42 Dose: 20 meq Documented by: JAN Prednisone (Prednisone 20 Mg Tablet) 20 mg PO DAILY [facility] Last Admin: 07/06/21 09:42 Dose: 20 mg Documented by: JAN Sodium Chloride (0.9 % Sodium Chloride Flush 3 Ml Syringe) 3 ml IVFLUSH QSHIFT [facility] Last Admin: 07/06/21 09:42 Dose: 3 ml Documented by: JAN Warfarin Sodium (Warfarin Sodium 2 Mg Tablet) 2 mg PO DAILY@1800 [facility] Last Admin: 07/05/21 17:56 Dose: 2 mg Documented by: DOBROB Zolpidem Tartrate (Zolpidem Tartrate 5 Mg Tablet) 10 mg PO BEDTIME PRN PRN Reason: Insomnia Last Admin: 07/05/21 22:01 Dose: 10 mg Documented by: ANDERM Labs CBC & Chem 7: 06/29/21 06:37 07/01/21 06:40 Labs: Laboratory Results - last 24 hr 07/05/21 07/05/21 07/06/21 16:10 20:04 07:10 PT INR POC Glucose 154 H 166 H 87 07/06/21 07/06/21 11:03 11:21 PT 34.6 H INR 3.0 H POC Glucose 133 H Assessment and Plan (1) COVID-19: Status: Acute (2) Abnormal LFTs: Status: Acute (3) Atrial fibrillation: Status: Acute Plan 61-year-old female with a past medical history of hypertension, hyperlipidemia, diabetes, CHF, AFib presented to the hospital with a chief complaint of generalized weakness/falls; found to have mild elevation of his transaminases; ventricular response rate acceptable 1. Generalized Weakness (multifactorial with COVID-19) Intermittent cough no hypoxia, continue supportive therapies.PT Recommend STR; social science instructor arranging for bed, referrals are out, strongly recommend to be out of bed to chair and to bed exercise 2. Choledocholithiasis/transaminitis - enzymes normalized, no abdominal pain 3. Chronic persistent Atrial fibrillation - acceptable rate control on current therapies, INR improved from 3.2-2.9 today continue Coumadin 2 mg daily home does 3 mg 4. Diabetes type 2 - blood sugars stable less than 150,continue with insulin correctional scale and ADA diet 5. Hypokalemia repleted, likely due to Lasix 6. left elbow cellulitis resolved finished course of Keflex and doxycycline , normal left elbow examination 7. Right ankle pain swelling and redness resolved ankle xray showed no fracture, finish course of antibiotics for 10 days with no improvement, likely acute gout and ankle sprain due to fall, finished course of prednisone DVT prophylaxis on Coumadin, follow PT INR, INR therapeutic 3 Full code Requires ongoing hospitalization due to acute right ankle pain, COVID related weakness, with difficulty in weight-bearing and ambulation need safe discharge to rehab, classification case manager looking for rehab bed. Quality Stroke Does the patient have a stroke diagnosis?: No VTE Prior VTE?: No VTE Risk Level:: Medical - moderate - high VTE Device Contraindication: Treatment Not Indicated VTE Drug Contraindication: N/A - Med Ordered
[2021-07-06 15:02] VITALS: BP 150/65; PULSE 62; RESP 20; TEMP 36.3; O2SAT 97
[2021-07-06 15:49] LABS: Glucose, Whole Blood 150 mg/dL (60-115)
[2021-07-06] MEDS: Warfarin Sodium 2 MG TABLET PO (17:31)
[2021-07-06 18:59] VITALS: BP 115/72; PULSE 81; RESP 18; TEMP 36.8; O2SAT 98
[2021-07-06 19:52] LABS: Glucose, Whole Blood 193 mg/dL (60-115)
[2021-07-06] MEDS: Zolpidem Tartrate 5 MG TABLET 10 MG PO (21:54)
[2021-07-06] MEDS: Atorvastatin Calcium 20 MG TABLET PO (21:55)
[2021-07-07] VITALS (9 sets, daily range): BP systolic 100–130; BP diastolic 44–72; PULSE 61–96; RESP 18–20; TEMP 36.2–37.4; O2SAT 95–99
[2021-07-07] MEDS: Omeprazole 20 MG CAPSULE.DR PO (05:44)
[2021-07-07] MEDS: oxyCODONE HCl Immed Release 5 MG TABLET PO ×2 (05:48→16:42)
[2021-07-07 07:01] LABS: Prothrombin Time 34.9 SEC (9.9-13.0)
[2021-07-07 07:36] LABS: Glucose, Whole Blood 75 mg/dL (60-115)
--- NOTE | 2021-07-07 09:59 | MHC.CM.PN ---
A message has been received from [facility] [place]. Returned call x2. The line was busy both times.
[2021-07-07] MEDS: Metoprolol Tartrate 100 MG TABLET PO (10:53)
[2021-07-07] MEDS: 0.9 % Sodium Chloride Flush 3 ML SYRINGE IVFLUSH ×3 (10:53→20:45)
[2021-07-07] MEDS: Furosemide 40 MG TABLET PO (10:53)
[2021-07-07] MEDS: hydrALAZINE HCl 25 MG TABLET PO (10:53)
[2021-07-07] MEDS: amLODIPine Besylate 10 MG TABLET PO (10:53)
[2021-07-07] MEDS: Aspirin Enteric Coated 81 MG TABLET.DR PO (10:53)
[2021-07-07] MEDS: Potassium Chloride ER 20 MEQ TAB.ER.PRT PO (10:53)
[2021-07-07] MEDS: buPROPion HCl XL 300 MG TAB.ER.24H PO (10:53)
[2021-07-07 11:16] LABS: Glucose, Whole Blood 92 mg/dL (60-115)
--- NOTE | 2021-07-07 15:26 | P.PNIM_ITS ---
Subjective Subjective Date of Service: 07/07/21 Interval History: No acute complaints this morning, right ankle swelling has resolved, minimal activity since he wants to be cautious and not to ambulate long distances, denies lightheadedness or dizziness, No acute events overnight, no chest pain, no palpitations, no shortness of breath, no fevers, no chills. Review of Systems Review of Systems: Yes all other systems are reviewed and are negative Physical Exam Vital Signs: Vital Signs: Last Vital Signs Temp 97.9 F 07/07/21 15:04 Pulse 67 07/07/21 15:04 Resp 18 07/07/21 15:04 BP 118/58 L 07/07/21 15:04 Pulse Ox 97 07/07/21 15:04 BMI result Body Mass Index 42.4 Const: Other: General? awake reyes rt x3, no acute di stress.? Neck? no JVD. CVS? regular rate rhythm, Respi ratory lungs clear to auscultation, no respiratory dis tress, no wheeze, no rhonchi. Gastro intestinal abdomen soft, nontender, bowel sounds audib le Extremities? ri ght ankle redness and swelling resol bee, small bruise Left elbow normal examination no re dness no swelling Neuro nonfocal psy ch appropriate aff ect Objective Data Active Medications Acetaminophen (Acetaminophen 325 Mg Tablet) 650 mg PO Q6H PRN PRN Reason: Headache Last Admin: 06/30/21 18:31 Dose: 650 mg Documented by: JAN Amlodipine Besylate (Amlodipine Besylate 10 Mg Tablet) 10 mg PO DAILY [facility]; Protocol Last Admin: 07/07/21 10:53 Dose: 10 mg Documented by: BROOKLYN Aspirin (Aspirin Enteric Coated 81 Mg Tablet.) 81 mg PO DAILY [facility] Last Admin: 07/07/21 10:53 Dose: 81 mg Documented by: BROOKLYN Atorvastatin Calcium (Atorvastatin Calcium 20 Mg Tablet) 20 mg PO BEDTIME [facility] Last Admin: 07/06/21 21:55 Dose: 20 mg Documented by: SUMMER Bisacodyl (Bisacodyl 5 Mg Tablet.) 10 mg PO BEDTIME PRN PRN Reason: Constipation Last Admin: 07/04/21 23:12 Dose: 10 mg Documented by: DARWIN Bupropion HCl (Bupropion Hcl Xl 300 Mg Tab.Er.24h) 300 mg PO DAILY [facility] Last Admin: 07/07/21 10:53 Dose: 300 mg Documented by: BROOKLYN Dextrose (Dextrose 50 % 25 Gm/50 Ml Syringe) 25 gm IVPUSH Q15M PRN; Protocol PRN Reason: per Hypoglycemia Standing Ord. Furosemide (Furosemide 40 Mg Tablet) 40 mg PO BIDWM [facility]; Protocol Last Admin: 07/07/21 10:53 Dose: 40 mg Documented by: BROOKLYN Glucose (Glucose Gel 15 Gm Gel..Gram.) 15 gm PO Q15M PRN; Protocol PRN Reason: per Hypoglycemia Standing Ord. Insulin Human Lispro (Insulin Lispro 100 Unit/Ml 3 Ml Vial) 0 unit SUBCUT QIDACHS [facility]; Protocol Last Admin: 07/07/21 11:34 Dose: Not Given Documented by: BROOKLYN Non-Admin Reason: No Insulin Coverage Metoprolol Tartrate (Metoprolol Tartrate 100 Mg Tablet) 100 mg PO BID [facility]; Protocol Last Admin: 07/07/21 10:53 Dose: 100 mg Documented by: BROOKLYN Omeprazole (Omeprazole 20 Mg Capsule.Dr) 20 mg PO DAILY@0630 [facility] Last Admin: 07/07/21 05:44 Dose: 20 mg Documented by: SUMMER Oxycodone HCl (Oxycodone Hcl Immed Release 5 Mg Tablet) 5 mg PO Q12H PRN PRN Reason: Breakthrough Pain Last Admin: 07/07/21 05:48 Dose: 5 mg Documented by: SUMMER Pharmacy Consult (Consult Rx Perform Med Rec) 1 each MISCELLANE ONCE PRN PRN Reason: Consult order Potassium Chloride (Potassium Chloride Er 20 Meq Tab.Er.Prt) 20 meq PO DAILY [facility] Last Admin: 07/07/21 10:53 Dose: 20 meq Documented by: BROOKLYN Sodium Chloride (0.9 % Sodium Chloride Flush 3 Ml Syringe) 3 ml IVFLUSH QSHIFT [facility] Last Admin: 07/07/21 10:53 Dose: 3 ml Documented by: BROOKLYN Warfarin Sodium (Warfarin Sodium 2 Mg Tablet) 2 mg PO DAILY@1800 [facility] Last Admin: 07/06/21 17:31 Dose: 2 mg Documented by: BROLakesha Zolpidem Tartrate (Zolpidem Tartrate 5 Mg Tablet) 10 mg PO BEDTIME PRN PRN Reason: Insomnia Last Admin: 07/06/21 21:54 Dose: 10 mg Documented by: SUMMER Labs CBC & Chem 7: 06/29/21 06:37 07/01/21 06:40 Labs: Laboratory Results - last 24 hr 07/06/21 07/06/21 07/07/21 15:46 19:47 06:13 PT 34.9 H INR 3.0 H POC Glucose 150 H 193 H 07/07/21 07/07/21 07:19 11:05 PT INR POC Glucose 75 92 Assessment and Plan (1) COVID-19: Status: Acute (2) Abnormal LFTs: Status: Acute (3) Atrial fibrillation: Status: Acute Plan 61-year-old female with a past medical history of hypertension, hyperlipidemia, diabetes, CHF, AFib presented to the hospital with a chief complaint of generalized weakness/falls; found to have mild elevation of his transaminases; ventricular response rate acceptable 1. Generalized Weakness (multifactorial with COVID-19) Intermittent cough no hypoxia, continue supportive therapies.PT Recommend STR; Patient mostly in bed, complain of right ankle pain, only walks few steps,strongly recommend to be out of bed to chair and to bed exercise 2. Choledocholithiasis/transaminitis - enzymes normalized, no abdominal pain 3. Chronic persistent Atrial fibrillation - acceptable rate control on current therapies, INR improved continue Coumadin 2 mg daily home does 3 mg 4. Diabetes type 2 - blood sugars stable less than 150,continue with insulin correctional scale and ADA diet 5. Hypokalemia repleted, likely due to Lasix 6. left elbow cellulitis resolved finished course of Keflex and doxycycline , normal left elbow examination 7. Right ankle pain swelling and redness resolved ankle xray showed no fracture, finish course of antibiotics for 10 days , likely acute gout and ankle sprain due to fall, finished course of prednisone Normal ankle examination except for small bruise DVT prophylaxis on Coumadin, follow PT INR, INR therapeutic 3 Full code Requires ongoing hospitalization due to right ankle pain, COVID related weakness, with difficulty in weight-bearing and ambulation need safe discharge to rehab, director of casework department looking for rehab bed. Quality Stroke Does the patient have a stroke diagnosis?: No VTE Prior VTE?: No VTE Risk Level:: Medical - moderate - high VTE Device Contraindication: Treatment Not Indicated VTE Drug Contraindication: N/A - Med Ordered
[2021-07-07 15:52] LABS: Glucose, Whole Blood 153 mg/dL (60-115)
[2021-07-07] MEDS: Warfarin Sodium 2 MG TABLET PO (18:18)
--- NOTE | 2021-07-07 18:21 | PC.NURSE ---
Wilmer Wrap applied to right ankle and foot; pt reminded of the importance pf ambulating. Pt walked to Br earlier and encouraged to continue to do so to help get his mobility back.
[2021-07-07] MEDS: Atorvastatin Calcium 20 MG TABLET PO (20:44)
[2021-07-07 21:10] LABS: COVID-19 Test Positive (Negative)
[2021-07-07 21:23] LABS: Glucose, Whole Blood 152 mg/dL (60-115)
[2021-07-07 21:23] LABS: Glucose, Whole Blood 167 mg/dL (60-115)
[2021-07-07] MEDS: Zolpidem Tartrate 5 MG TABLET 10 MG PO (22:31)
[2021-07-08 04:00] VITALS: BP 112/66; PULSE 96; RESP 18; TEMP 36.6; O2SAT 97
[2021-07-08] MEDS: Omeprazole 20 MG CAPSULE.DR PO (05:47)
[2021-07-08 06:56] LABS: INTERNATIONAL NORM RATIO 2.8 (0.9-1.1); Prothrombin Time 32.8 SEC (9.9-13.0)
[2021-07-08 07:35] VITALS: BP 100/55; PULSE 77; RESP 20; TEMP 36.4; O2SAT 97
[2021-07-08 07:45] LABS: Glucose, Whole Blood 90 mg/dL (60-115)
[2021-07-08 11:31] VITALS: BP 116/61; PULSE 89; RESP 20; TEMP 36.6; O2SAT 99
[2021-07-08] MEDS: Potassium Chloride ER 20 MEQ TAB.ER.PRT PO (11:32)
[2021-07-08] MEDS: buPROPion HCl XL 300 MG TAB.ER.24H PO (11:32)
[2021-07-08] MEDS: 0.9 % Sodium Chloride Flush 3 ML SYRINGE IVFLUSH (11:33)
[2021-07-08] MEDS: Metoprolol Tartrate 100 MG TABLET PO (11:33)
[2021-07-08] MEDS: Aspirin Enteric Coated 81 MG TABLET.DR PO (11:33)
[2021-07-08 11:43] LABS: Glucose, Whole Blood 159 mg/dL (60-115)
--- NOTE | 2021-07-08 11:51 | MHC.CM.PN ---
IMM 07/08/21 Male Covid+ is discharged today. He will go to [facility] via S. His son, Fabio Brown, has been notified of the discharge and agrees with the discharge plan. The patient agrees as well.
--- NOTE | 2021-07-08 12:51 | PM.DS ---
DS: Providers Provider Date of Service: 07/08/21 Date of admission: 06/24/21 05:48 Primary care physician: Jennifer Senior MD Consults: 06/24/21 05:49 Consult to Gastroenterology Routine Consulting Provider: Arcadio Beltre Reason for consultation: choledocholitiasis; transaminitis 06/24/21 05:51 Consult to Infectious Diseases Routine Consulting Provider: Cielo Marvin Reason for consultation: covid positive DS: Diagnosis Discharge Diagnosis (1) COVID-19: Status: Acute (2) Abnormal LFTs: Status: Acute (3) Atrial fibrillation: Status: Acute DS: Summary Hospital Course Hospital Course: History of present illness Chief Complaint: Fall 61-year-old female with a past medical history of hypertension, hyperlipidemia, diabetes, CAD, CHF, AFib on Coumadin, insomnia, depression presented to the hospital today with a chief complaint of generalized weakness/falls.? Patient reports that over the past few days he has been having generalized weakness; had a fall on last Tuesday; presented to the ER and noted to have left wrist is/forearm cellulitis.? Given antibiotics. Patient mentioned that yesterday he had cough and subjective fevers; checked his COVID-19 and came back positive.? Infant generally weak; and today when he was trying to come to the hospital while he was getting into the car he tripped and landed on his buttocks.? Denies any head strike or loss of consciousness. Had multiple episodes.? Denies any nausea vomiting or diarrhea.? Mentions she has been having shortness of breath/dyspnea on exertion.? Denies any chest pain or palpitations.? Denies any recent travel or sick contacts.? Review of all other systems is negative except mentioned above ER course: Per ER team patient's exam was nonfocal; CT abdomen showed choledocholithiasis; on labs noted to have elevated liver enzymes.? Also patient is COVID-19 positive.? Saturating 97% on room air.? Admitted to the hospital for further management.? Patient has potassium of 3.1.? Repleted. Hospital course 61-year-old female with a past medical history of hypertension, hyperlipidemia, diabetes, CHF, AFib presented to the hospital with a chief complaint of generalized weakness/falls; found to have COVID-19 infection with mild elevation of his transaminases; ventricular response rate acceptable 1. Generalized Weakness (multifactorial with COVID-19) patient had intermittent cough, no hypoxia, supportive care was provided with cough medication Tylenol, subsequently seen by physical therapy they recommended short-term rehab due to low tolerance for functional mobility with unsteady gait, dizziness, high risk of falls decreased lower extremity strength decreased independence and safety patient is therefore being discharged to rehab for less than 30 days 2. Elevated LFTs normalized, patient has no abdominal pain tolerating diet, initial CT scan showed Choledocholithiasis, therefore abdominal MRI obtained that showed no evidence of common bile duct stone, renal ultrasound showed cholelithiasis without evidence of acute cholecystitis, no further intervention needed. ? 3. Chronic persistent Atrial fibrillation acceptable rate control, INR therapeutic dose of Coumadin lowered to 2 mg, home does 3 mg 4. Diabetes type 2 blood sugars stable less than 150,continue ADA diet 5.? Hypokalemia repleted, likely due to Lasix 6.? left elbow cellulitis resolved finished course of Keflex and doxycycline , normal left elbow examination 7. Right ankle pain swelling and redness resolved ankle xray showed no fracture, finish course of antibiotics for 10 days , likely acute gout and ankle sprain due to fall, finished course of prednisone ?? Normal ankle examination except for small bruise. Time Spent with Patient Time attestation: Total time spent providing and/or coordinating discharge services: Discharge coordination time: Greater than 30 minutes Quality: Safe Use of Opioids Does Pt have an Active Cancer Diagnosis on the Problem List?: No Quality: Stroke Does the patient have a stroke diagnosis?: No Physical Exam Vital Signs: Vital Signs: Last Vital Signs Temp 97.8 F 07/08/21 11:31 Pulse 89 07/08/21 11:31 Resp 20 07/08/21 11:31 BP 116/61 07/08/21 11:31 Pulse Ox 99 07/08/21 11:31 BMI result Body Mass Index 42.4 Const: Other: General? awake alert x3, no acute distress.? Neck? no JVD. CVS? regular rate rhythm, Respiratory lungs clear to auscultation, no respiratory distress, no wheeze, no rhonchi. Gastrointestinal abdomen soft, nontender, bowel sounds audible Extremities? right ankle redness and swelling resolved, small bruise persists Left elbow normal examination no redness, no swelling. Neuro nonfocal psych appropriate affect DS: Data Data Completed and Pending Labs on day of discharge: Laboratory Results - last 24 hr 07/07/21 07/07/21 07/07/21 15:44 19:59 20:43 PT INR POC Glucose 153 H 167 H COVID-19 (JUAN) Positive A COVID-19 Clin Com See Note 07/07/21 07/08/21 07/08/21 21:18 06:27 07:33 PT 32.8 H INR 2.8 H POC Glucose 152 H 90 COVID-19 (JUAN) COVID-19 Clin Com 07/08/21 11:30 PT INR POC Glucose 159 H COVID-19 (JUAN) COVID-19 Clin Com Discharge Plan Discharge Patient Disposition: er [facility] Discharge Diagnosis: Generalized weakness COVID-19 infection Choledocholithiasis Transaminitis Chronic persistent atrial fibrillation Hypokalemia Right ankle pain [facility] Jennifer Peters MD [Primary Care Provider] - 1 Week Discharge Medications: New warfarin [Jantoven] 2 mg Tablet 2 mg PO DAILY@1800 Qty: 30 0RF potassium chloride 20 mEq Tablet,Er Particles/Crystals 20 meq PO DAILY Qty: 30 0RF Continued metoprolol tartrate 100 mg tablet 1 tab PO BID 0RF furosemide 40 mg tablet 40 mg PO BID 0RF aspirin [Adult Low Dose Aspirin] 81 mg tablet,delayed release (DR/EC) 81 mg PO DAILY 0RF atorvastatin 20 mg tablet 20 mg PO BEDTIME 0RF zolpidem [Ambien] 10 mg tablet 10 mg PO BEDTIME PRN (Reason: Insomnia) 0RF bupropion HCl 150 mg tablet sustained-release 12 hr 150 mg PO BID 0RF Discontinued melatonin 5 mg tablet 2 tab PO BEDTIME 0RF warfarin 3 mg tablet 1 tab PO DAILY 0RF doxycycline hyclate 100 mg capsule 100 mg PO BID 7 Days Qty: 14 0RF cephalexin 500 mg capsule 500 mg PO BID 7 Days Qty: 14 0RF amlodipine 10 mg tablet 10 mg PO DAILY 0RF hydralazine 25 mg tablet 25 mg PO BID 0RF ramelteon 8 mg tablet 8 mg PO BEDTIME 0RF Discharge Orders: Discharge Order (Routine); Ordered 07/08/21 Ordered By: Rona Mccain Diet: low fat, low cholesterol Activity on Discharge: As tolerated Stand Alone Forms: Patient Portal Discharge page Care Plan Goals: COVID-19 , weakness, right ankle sprain, lightheadedness with activity being discharged to rehab facility, stable electrolytes renal function continue above medications and physical therapy has tolerated. Being discharged to rehab for less than 30 days Health Concerns: Atrial fibrillation continue Coumadin monitor PT INR, stable heart rate history of hypertension, blood pressure medication adjusted Diabetes mellitus not on home medication follow diabetic diet Follow low-calorie diet/monitor blood pressure closely/participate with physical therapy as tolerated Plan of Treatment: Outpatient follow-up with primary care physician and Cardiology Assessment: As per discharge summary.
== END 2021-07-08 17:45 | disposition skilled nursing facility (03) | DRG 177 ==
LOC: HO.ED 06-24 03:35 → HO.EDOVER 06-24 06:02 → HO.IMC 06-24 19:33
PROVIDERS: Hospitalist; Internal Medicine; Internal Medicine Gastroenterology; Student in an Organized Health Care Education/Training Program; Admitting Provider Hospitalist; Emergency Provider Emergency Medicine; PCP Internal Medicine; Visit Provider Hospitalist
DX: U07.1 COVID-19 (principal); I50.23 Acute on chronic systolic (congestive) heart failure; I13.0 Hypertensive heart and chronic kidney disease with heart failure and stage 1 through stage 4 chronic kidney disease, or unspecified chronic kidney disease; L03.114 Cellulitis of left upper limb; Z68.41 Body mass index [BMI] 40.0-44.9, adult; I48.19 Other persistent atrial fibrillation; E78.5 Hyperlipidemia, unspecified; I49.3 Ventricular premature depolarization; M10.9 Gout, unspecified; E66.01 Morbid (severe) obesity due to excess calories; E87.6 Hypokalemia; E11.22 Type 2 diabetes mellitus with diabetic chronic kidney disease; N18.30 Chronic kidney disease, stage 3 unspecified; K80.50 Calculus of bile duct without cholangitis or cholecystitis without obstruction; Z79.01 Long term (current) use of anticoagulants; Z79.82 Long term (current) use of aspirin; Z79.899 Other long term (current) drug therapy
CPT/HCPCS: 36415; 70450; 71045; 71250; 72125; 73600; 74176; 74181; 76705; 80048; 80053; 80076; 80307; 81001; 82947; 82977; 83605; 83615; 83735; 83880; 84132; 84443; 85025; 85027; 85610; 86803; 87040; 87635; 93005; 96365; 96375; 97110; 97116; 97162; 99285; C1758; J1940; J2543

== ENCOUNTER → 2021-10-15 13:51 | Outpatient (BNVA) | payer OTHER, SELFPAY | PROVIDERS: PCP Family Medicine Geriatric Medicine; Visit Provider Student in an Organized Health Care Education/Training Program | DX: M1A.09X1 Idiopathic chronic gout, multiple sites, with tophus (tophi) (principal); M17.0 Bilateral primary osteoarthritis of knee; M25.542 Pain in joints of left hand; M25.541 Pain in joints of right hand; M25.571 Pain in right ankle and joints of right foot; M25.572 Pain in left ankle and joints of left foot; D64.9 Anemia, unspecified | CPT/HCPCS: 99202 ==

== ENCOUNTER 2021-10-27 07:43 | Outpatient (REF) | payer OTHER, SELFPAY ==
--- NOTE | ~2021-10-27 | XR_ITS ---
EXAMINATION: XR KNEE, RIGHT CLINICAL INFORMATION: Right knee pain. COMPARISON: Radiographs right knee 01/29/2020 TECHNIQUE: Three views of the right knee. FINDINGS: There is tricompartment osteoarthritis greatest medial knee joint compartment with marked joint narrowing and subchondral sclerosis and small subchondral cyst and osteophyte. There are no erosive changes. Small to moderate suprapatellar effusion is present. Evaluation is increased from prior imaging 2019. XR/XR knee RT 2V IMPRESSION: Tricompartment osteoarthritis greatest medial compartment. Small to moderate effusion.
== END 2021-10-27 07:44 | disposition home or self-care (01) ==
LOC: HO.HOSX 07:43
PROVIDERS: Visit Provider Physician Assistant
DX: M17.11 Unilateral primary osteoarthritis, right knee (principal); I50.9 Heart failure, unspecified; E11.9 Type 2 diabetes mellitus without complications
CPT/HCPCS: 20610; 73560; 99212; J1020

== ENCOUNTER → 2021-10-30 13:52 | Outpatient (BNVA) | payer OTHER, SELFPAY | PROVIDERS: Visit Provider Student in an Organized Health Care Education/Training Program | DX: M1A.09X1 Idiopathic chronic gout, multiple sites, with tophus (tophi) (principal); M17.0 Bilateral primary osteoarthritis of knee; D64.9 Anemia, unspecified | CPT/HCPCS: 99212 ==

== ENCOUNTER → 2021-12-07 13:23 | Outpatient (BNVA) | payer OTHER, SELFPAY | PROVIDERS: Visit Provider Anesthesiology | DX: M17.0 Bilateral primary osteoarthritis of knee (principal); E11.9 Type 2 diabetes mellitus without complications; I50.9 Heart failure, unspecified | CPT/HCPCS: 99202 ==

== ENCOUNTER → 2021-12-15 13:40 | Outpatient (BNVA) | payer OTHER, SELFPAY | PROVIDERS: Visit Provider Student in an Organized Health Care Education/Training Program | DX: M1A.09X1 Idiopathic chronic gout, multiple sites, with tophus (tophi) (principal); M17.0 Bilateral primary osteoarthritis of knee | CPT/HCPCS: 99212 ==

== ENCOUNTER → 2022-01-26 15:52 | Outpatient (BNVA) | payer OTHER, SELFPAY | PROVIDERS: Visit Provider Orthopaedic Surgery | DX: M25.641 Stiffness of right hand, not elsewhere classified (principal); M1A.09X1 Idiopathic chronic gout, multiple sites, with tophus (tophi) | CPT/HCPCS: 99202 ==

== ENCOUNTER → 2022-02-16 13:18 | Outpatient (BNVA) | payer OTHER, SELFPAY | PROVIDERS: Visit Provider Student in an Organized Health Care Education/Training Program | DX: M1A.09X1 Idiopathic chronic gout, multiple sites, with tophus (tophi) (principal); M17.0 Bilateral primary osteoarthritis of knee | CPT/HCPCS: 99212 ==

== ENCOUNTER 2022-02-23 10:25 | Outpatient (REF) | payer OTHER, SELFPAY ==
--- NOTE | ~2022-02-23 | XR_ITS ---
EXAMINATION: XR HAND, RIGHT CLINICAL INFORMATION: Right hand pain COMPARISON: None TECHNIQUE: PA, lateral, and oblique views of the right hand. FINDINGS: There is mild loss of PIP and DIP joint space all digits. There is juxta-articular osteopenia involving all digits. No visible acute fracture seen. There is mild soft tissue swelling PIP joints. XR/XR hand RT min 3V IMPRESSION: 1. Loss of PIP and DIP joints and osteopenia suggestive of rheumatoid arthritis. 2. No visible acute fracture or dislocation seen. 3. There is mild soft tissue swelling PIP joints.
== END 2022-02-23 10:26 | disposition home or self-care (01) ==
LOC: HO.HOSX 10:25
PROVIDERS: Visit Provider Physician Assistant
DX: M25.641 Stiffness of right hand, not elsewhere classified (principal); M1A.09X1 Idiopathic chronic gout, multiple sites, with tophus (tophi)
CPT/HCPCS: 73130; 99212

== ENCOUNTER → 2022-04-29 13:49 | Outpatient (BNVA) | payer OTHER, SELFPAY | PROVIDERS: Visit Provider Student in an Organized Health Care Education/Training Program | DX: M1A.09X1 Idiopathic chronic gout, multiple sites, with tophus (tophi) (principal); M17.0 Bilateral primary osteoarthritis of knee; I48.91 Unspecified atrial fibrillation; I50.9 Heart failure, unspecified; E11.22 Type 2 diabetes mellitus with diabetic chronic kidney disease; I13.0 Hypertensive heart and chronic kidney disease with heart failure and stage 1 through stage 4 chronic kidney disease, or unspecified chronic kidney disease; N18.30 Chronic kidney disease, stage 3 unspecified | CPT/HCPCS: 99212 ==

== ENCOUNTER → 2022-06-07 13:14 | Outpatient (BNVA) | payer OTHER, SELFPAY | PROVIDERS: Visit Provider Student in an Organized Health Care Education/Training Program | DX: M10.9 Gout, unspecified (principal) | CPT/HCPCS: 96372; J0638 ==

== ENCOUNTER → 2022-06-30 15:33 | Outpatient (BNVA) | payer OTHER, SELFPAY | PROVIDERS: Visit Provider Student in an Organized Health Care Education/Training Program | DX: M1A.09X1 Idiopathic chronic gout, multiple sites, with tophus (tophi) (principal); Z79.52 Long term (current) use of systemic steroids; Z79.899 Other long term (current) drug therapy | CPT/HCPCS: 99212 ==

== ENCOUNTER → 2022-07-21 10:57 | Outpatient (BNVA) | payer OTHER, SELFPAY | PROVIDERS: Visit Provider Student in an Organized Health Care Education/Training Program | DX: M10.9 Gout, unspecified (principal); Z79.620 Long term (current) use of immunosuppressive biologic | CPT/HCPCS: 96372; J0638 ==

== ENCOUNTER 2022-08-24 11:16 | Outpatient (AMB) | payer OTHER, SELFPAY ==
--- NOTE | 2022-08-24 16:50 | AM.OFFVISNUR ---
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: No Allergies No Known Allergies Allergy (Verified 08/24/22 16:52) Medication List - Last Reconciled 08/24/22 by Elise Teran RN acetaminophen 1,000 mg PO QID PRN allopurinol 300 mg PO DAILY amiodarone 200 mg PO DAILY aspirin (Adult Low Dose Aspirin) 81 mg PO DAILY atorvastatin 20 mg PO BEDTIME bupropion HCl 150 mg PO BID canakinumab (PF) 150 mg subcut Q4W duloxetine 60 mg PO DAILY furosemide 20 mg PO DAILY gabapentin 100 mg PO BID hydroxyzine HCl 25 mg PO TID metoprolol tartrate 1 tab PO BID omeprazole 20 mg PO DAILY oxycodone ER (OxyContin) 10 mg PO BID potassium chloride ER 20 mEq PO DAILY prednisone 15 mg PO DAILY tramadol 50 mg PO BID PRN warfarin (Jantoven) 2 mg PO DAILY@1800 warfarin 0 mg PO warfarin 0 mg PO zolpidem (Ambien) 10 mg PO BEDTIME PRN Nursing Note Patient here for continued Ilaris therapy. BP, consent obtained for Ilaris injection. Patient denied any new allergies, symptoms, no fevers, or reaction to last injection. Administered Ilaris on upper right arm. Patient tolerated injection well. Office Meds canakinumab (PF) Performing Provider: Marie Helms MD Administered by: Elise Teran RN on 08/24/22 16:54 Dose Route Admin Location Lot Number Expiration Date [facility] Prototyper 150 mg subcut right arm [id number] 03/09/25 9746-7833-57 [facility] Coding Diagnoses Assessment & Plan Assessment & Plan Orders: Orders AMB Canakinumab Injection Practice Supplied Today M10.9 - Gout, unspecified
[2022-08-24 16:51] VITALS: BP 128/76; PULSE 79; RESP 17; TEMP 36.8
== END 2022-08-24 11:39 | disposition home or self-care (01) ==
PROVIDERS: Visit Provider Student in an Organized Health Care Education/Training Program
DX: M10.9 Gout, unspecified (principal)

== ENCOUNTER → 2022-08-24 11:16 | Outpatient (BNVA) | payer OTHER, SELFPAY | PROVIDERS: Visit Provider Student in an Organized Health Care Education/Training Program | DX: M10.9 Gout, unspecified (principal) | CPT/HCPCS: 96372; J0638 ==

== ENCOUNTER 2022-10-01 11:23 | Outpatient (AMB) | payer OTHER, SELFPAY ==
[2022-10-01 11:39] VITALS: BP 144/78; PULSE 68; TEMP 36.2; O2SAT 97
--- NOTE | 2022-10-01 11:39 | A.OFFVIS_ITS ---
Intake Vital Signs 10/01/22 11:39 Height 5 ft 1 in BP 144/78 H Blood Pressure Location Rt radial Position Semi Lyn's Pulse 68 Pulse Source Pulse Oximeter Temp 97.2 F Temp Source Skin Pulse Oximetry (%) 97 Intake Visit Reasons: gout follow up and injection Tele Marketing Executive Required: No Accompanied by: Self / Same As Patient Allergies No Known Allergies Allergy (Verified 10/01/22 11:39) Medication List - Last Reconciled 10/01/22 by Marie Helms MD acetaminophen 1,000 mg PO QID PRN allopurinol 300 mg PO DAILY amiodarone 200 mg PO DAILY aspirin (Adult Low Dose Aspirin) 81 mg PO DAILY atorvastatin 20 mg PO BEDTIME bupropion HCl 150 mg PO BID canakinumab (PF) 150 mg subcut Q4W duloxetine 60 mg PO DAILY furosemide 20 mg PO DAILY gabapentin 100 mg PO BID hydroxyzine HCl 25 mg PO TID metoprolol tartrate 1 tab PO BID omeprazole 20 mg PO DAILY oxycodone ER (OxyContin) 10 mg PO BID potassium chloride ER 20 mEq PO DAILY prednisone 15 mg PO DAILY tramadol 50 mg PO BID PRN warfarin (Jantoven) 2 mg PO DAILY@1800 warfarin 0 mg PO warfarin 0 mg PO zolpidem (Ambien) 10 mg PO BEDTIME PRN HPI HPI Comments History of Present Illness Details 62-year-old male with gout presents for follow-up. He is here on the stretcher. He Is transferred from his long-term care facility. He has received 3 monthly doses of the canakinumab. He has no acute complaints today except for some pain with moving his wrists. Currently on prednisone 15 mg daily, on allopurinol 300 mg daily Initial history: This is a 61-year-old male with a past medical history of hypertension, dyslipidemia, AFib on Coumadin, type 2 diabetes mellitus presents for evaluation of diffuse joint pain. He was transferred from a rehab facility. Patient stated he has been in rehab for about 3 months due to multiple falls and inability to walk well. He had a fall while in the shower about 7 months ago when his legs suddenly gave out, he fell straight down on his buttocks, he denied any loss of consciousness or fractures at that time. He had a similar episode about 6 months ago when he was entering a car and his legs gave out and he fell but did not break anything. Patient stated that he he had gout for a few years now. Initially the attacks would involve his bilateral big toes and both feet, attacks usually would improve with prednisone tapers. He has had severe bilateral knee osteoarthritis and has been getting steroid injections for many years. Currently patient can barely walk due to bilateral knee pain. He also developed severe left shoulder pain a few weeks ago and now he has difficulty raising his left shoulder above his head. He was also diagnosed with kidney stones that were seen on imaging. Does not know what type of stones. [facility] Medical History Anemia Atrial fibrillation Congestive heart failure Impaired fasting glucose Microalbuminuria Obesity QT prolongation Sleep disorder Stage 3 chronic kidney disease Type 2 diabetes mellitus Vitamin D deficiency Surgical History History of surgery on left wrist Hx of hernia repair Family History Father CHF (congestive heart failure) Mother Thyroid disease Social History Household Members: None Housing: Apartment Housing Other:: 3rd floor walk up Do you presently have visiting nurse or other home services: Yes (X1 weekly) Alcohol intake: never Patient Tobacco Use Status: Former Tobacco user Years Smoked: QUIT 30 YEARS AGO service: No Current occupational status: disabled 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 Review of Systems Const All systems reviewed & are unremarkable except as noted in HPI and below Reports fatigue Musc Reports joint swelling Endo Reports fatigue Physical Exam Vital Signs: Last Vital Signs Temp 97.2 F 10/01/22 11:39 Pulse 68 10/01/22 11:39 BP 144/78 H 10/01/22 11:39 Pulse Ox 97 10/01/22 11:39 Const General: cooperative Nutritional Appearance: obese Orientation/consciousness: patient oriented x3 Limitations: other limitations (Patient came on a stretcher) HEENT Other: Pale oral mucosa Head: Yes normocephalic and Yes atraumatic Resp Effort & Inspection: normal respiratory effort and able to speak in complete sentences Neuro General: patient oriented x3 Extrem Other: Prominent tophi of both big toes. Tophi on fingers On exam today patient has mild swelling, tenderness and warmth of both wrists Knees are no longer warm or tender Today's the 1st day he can move his shoulders freely with no pain Bilateral feet numbness Results Reviewed Results Reviewed: MRI left shoulder 07/29? Impression: ?1. Arthritic changes about normally aligned AC joint with intense capsular enhancement and adjacent subacromial/subdeltoid bursitis, infectious, inflammatory and arthritic etiologies considered 2. Tearing of the distal fibers of supraspinatus tendon anteriorly, suspected to be full-thickness, without tendon retraction. 3. Small joint effusion affecting glenohumeral joint may be reactive.? Infectious and inflammatory etiologies not excluded 4. Diffuse labral irregularity.? Motion artifact degrades detail, but extended labral tearing is considered CT chest angiogram Impression 1. No pulmonary embolus? 2. Hepatic splenomegaly with decreased attenuation of the liver consistent with fatty infiltration or other hepatocellular disease.?? Assessment & Plan Assessment & Plan (1) Gout: Comment: Could not tolerate colchicine due to severe GI side effects Code(s): M10.9 - Gout, unspecified Qualifiers: Gout site: multiple sites Gout etiology: idiopathic Chronicity: chronic Presence of tophus: with tophus Qualified Code(s): M1A.09X1 - Idiopathic chronic gout, multiple sites, with tophus (tophi) Plan: This is a 62-year-old male with metabolic syndrome including obesity, hypertension, dyslipidemia, type 2 diabetes mellitus, CKD presents for follow-up of gout. On exam he has large tophi of his feet and hands. He is on allopurinol 300 mg daily and prednisone 15 mg daily Patient received canakinumab injection in June and August. On exam today he has significantly improved synovitis. Only minimal swelling of his wrists. Most recent uric acid level 5.5 which is at target. Normal inflammatory markers Case discussed with patient's nurse Jennifer Reduce prednisone to 10 mg daily for 1 month then 7.5 mg daily for 1 month until next visit Continue allopurinol 300 mg daily Will space out canakinumab injections to every 2 months for now, advised patient's nurse that if he develops breakthrough pain to call the office and we can bring him in sooner for an canakinumab injection CBC, CMP, ESR, CRP, uric acid before next visit Follow-up in 2 months, plan for canakinumab injection next visit as well Plan I spent 46 minutes reviewing patient's chart, evaluating patient, ordering diagnostic workup, counseling patient, discussing the case with his nurse at long-term care and documenting in the chart Coding Level of Care Code Est Pt Level 5 (29164) Diagnoses Gout M1A.09X1 Gout site: multiple sites Gout etiology: idiopathic Chronicity: chronic Presence of tophus: with tophus
== END 2022-10-01 12:32 | disposition home or self-care (01) ==
PROVIDERS: Visit Provider Student in an Organized Health Care Education/Training Program
DX: M10.9 Gout, unspecified (principal); M1A.09X1 Idiopathic chronic gout, multiple sites, with tophus (tophi)
CPT/HCPCS: 99215

== ENCOUNTER → 2022-10-01 11:23 | Outpatient (BNVA) | payer OTHER, SELFPAY | PROVIDERS: Visit Provider Student in an Organized Health Care Education/Training Program | DX: M1A.09X1 Idiopathic chronic gout, multiple sites, with tophus (tophi) (principal); Z79.52 Long term (current) use of systemic steroids; Z79.899 Other long term (current) drug therapy | CPT/HCPCS: 96372; 99212; J0638 ==

== ENCOUNTER 2023-01-17 11:11 | Outpatient (AMB) | payer OTHER, SELFPAY ==
--- NOTE | 2023-01-17 11:31 | MHC.OFFVIS ---
Intake Vital Signs 01/17/23 11:33 Height 5 ft 1 in BP 144/70 H Pulse 61 Pulse Source Pulse Oximeter Temp 96.8 F Temp Source Skin Pulse Oximetry (%) 92 Oxygen Delivery Method Room Air Intake Visit Reasons: Gout/Ilaris Intake Note: Patient presents today to follow up on gout and to obtain Ilaris injection. Right hand and wrist not getting better Electric Hoist Operator Required: No Accompanied by: Self / Same As Patient Allergies No Known Allergies Allergy (Verified 01/17/23 11:35) Medication List - Last Reconciled 01/17/23 by Marie Helms MD acetaminophen 1,000 mg PO QID PRN allopurinol 300 mg PO DAILY amiodarone 200 mg PO DAILY aspirin (Adult Low Dose Aspirin) 81 mg PO DAILY atorvastatin 20 mg PO BEDTIME bupropion HCl 150 mg PO BID canakinumab (PF) 150 mg subcut Q4W duloxetine 60 mg PO DAILY furosemide 20 mg PO DAILY gabapentin 100 mg PO BID hydroxyzine HCl 25 mg PO TID metoprolol tartrate 1 tab PO BID omeprazole 20 mg PO DAILY oxycodone ER (OxyContin) 10 mg PO BID potassium chloride ER 20 mEq PO DAILY prednisone 15 mg PO DAILY tramadol 50 mg PO BID PRN warfarin (Jantoven) 2 mg PO DAILY@1800 warfarin 0 mg PO warfarin 0 mg PO zolpidem (Ambien) 10 mg PO BEDTIME PRN HPI HPI Comments History of Present Illness Details 62-year-old male with gout presents for follow-up. He is here on the stretcher. He Is transferred from his long-term care facility. Most recent canakinumab injection was 09/2022. He is on allopurinol 300 mg daily and prednisone 7.5 mg daily. He states that he is doing well overall except for mild right hand, wrist pain, swelling and stiffness. Not particularly bothersome. Initial history: This is a 61-year-old male with a past medical history of hypertension, dyslipidemia, AFib on Coumadin, type 2 diabetes mellitus presents for evaluation of diffuse joint pain. He was transferred from a rehab facility. Patient stated he has been in rehab for about 3 months due to multiple falls and inability to walk well. He had a fall while in the shower about 7 months ago when his legs suddenly gave out, he fell straight down on his buttocks, he denied any loss of consciousness or fractures at that time. He had a similar episode about 6 months ago when he was entering a car and his legs gave out and he fell but did not break anything. Patient stated that he he had gout for a few years now. Initially the attacks would involve his bilateral big toes and both feet, attacks usually would improve with prednisone tapers. He has had severe bilateral knee osteoarthritis and has been getting steroid injections for many years. Currently patient can barely walk due to bilateral knee pain. He also developed severe left shoulder pain a few weeks ago and now he has difficulty raising his left shoulder above his head. He was also diagnosed with kidney stones that were seen on imaging. Does not know what type of stones. [facility] Medical History Stage 3 chronic kidney disease Type 2 diabetes mellitus Congestive heart failure Sleep disorder Vitamin D deficiency Microalbuminuria Obesity Atrial fibrillation QT prolongation Anemia Impaired fasting glucose Surgical History History of surgery on left wrist Hx of hernia repair Family History Father CHF (congestive heart failure) Mother Thyroid disease Social History Household Members: None Housing: Apartment Housing Other:: 3rd floor walk up Do you presently have visiting nurse or other home services: Yes (X1 weekly) Alcohol intake: never Patient Tobacco Use Status: Former Tobacco user Years Smoked: QUIT 30 YEARS AGO service: No Current occupational status: disabled 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 Review of Systems Musc Reports arthralgias, Reports joint swelling and Reports stiffness Physical Exam Vital Signs: Last Vital Signs Temp 96.8 F 01/17/23 11:33 Pulse 61 01/17/23 11:33 BP 144/70 H 01/17/23 11:33 Pulse Ox 92 01/17/23 11:33 Oxygen Delivery Method Room Air 01/17/23 11:33 Const General: cooperative Nutritional Appearance: obese Orientation/consciousness: patient oriented x3 Limitations: other limitations (Patient came on a stretcher) HEENT Head: Yes normocephalic and Yes atraumatic Resp Effort & Inspection: normal respiratory effort and able to speak in complete sentences Neuro General: patient oriented x3 Extrem Other: Prominent tophi of both big toes. Tophi on fingers On exam today patient has mild swelling, minimal tenderness of right wrist No active synovitis otherwise. Normal range of motion of both shoulders Results Reviewed Results Reviewed: MRI left shoulder 07/29? Impression: ?1. Arthritic changes about normally aligned AC joint with intense capsular enhancement and adjacent subacromial/subdeltoid bursitis, infectious, inflammatory and arthritic etiologies considered 2. Tearing of the distal fibers of supraspinatus tendon anteriorly, suspected to be full-thickness, without tendon retraction. 3. Small joint effusion affecting glenohumeral joint may be reactive.? Infectious and inflammatory etiologies not excluded 4. Diffuse labral irregularity.? Motion artifact degrades detail, but extended labral tearing is considered CT chest angiogram Impression 1. No pulmonary embolus? 2. Hepatic splenomegaly with decreased attenuation of the liver consistent with fatty infiltration or other hepatocellular disease.?? Assessment & Plan Assessment & Plan (1) Gout: Comment: Could not tolerate colchicine due to severe GI side effects Code(s): M10.9 - Gout, unspecified Qualifiers: Gout site: multiple sites Gout etiology: idiopathic Chronicity: chronic Presence of tophus: with tophus Qualified Code(s): M1A.09X1 - Idiopathic chronic gout, multiple sites, with tophus (tophi) Plan: This is a 62-year-old male with metabolic syndrome including obesity, hypertension, dyslipidemia, type 2 diabetes mellitus, CKD presents for follow-up of gout. On exam he has large tophi of his feet and hands. He is on allopurinol 300 mg daily and prednisone 7.5 mg daily Patient received canakinumab injection in June and August & September. Please doing very well overall. He has minimal swelling and tenderness of his right wrist. Inflammatory markers are normal. Case discussed with patient's nurse Jennifer Reduce prednisone to 5 mg daily for 1 month then remain on 2.5 mg daily Continue allopurinol 300 mg daily Will only use canakinumab injections as needed for now. advised patient's nurse that if he develops breakthrough pain to call the office and we can bring him in sooner for a canakinumab injection CBC, CMP, ESR, CRP, uric acid before next visit Follow-up in 3 months Plan I spent 46 minutes reviewing patient's chart, evaluating patient, counseling patient, discussing the case with his nurse at long-term care and documenting in the chart Coding Level of Care Code Est Pt Level 4 (48169) Diagnoses Idiopathic chronic gout of multiple sites with tophus M1A.09X1 Gout site: multiple sites Gout etiology: idiopathic Chronicity: chronic Presence of tophus: with tophus
[2023-01-17 11:33] VITALS: BP 144/70; PULSE 61; TEMP 36; O2SAT 92
== END 2023-01-17 12:03 | disposition home or self-care (01) ==
PROVIDERS: Visit Provider Student in an Organized Health Care Education/Training Program
DX: M1A.09X1 Idiopathic chronic gout, multiple sites, with tophus (tophi) (principal)
CPT/HCPCS: 99214

== ENCOUNTER → 2023-01-17 11:11 | Outpatient (BNVA) | payer OTHER, SELFPAY | PROVIDERS: Visit Provider Student in an Organized Health Care Education/Training Program | DX: M1A.09X1 Idiopathic chronic gout, multiple sites, with tophus (tophi) (principal) | CPT/HCPCS: 99212 ==

== ENCOUNTER 2023-04-19 10:57 | Outpatient (AMB) | payer OTHER, SELFPAY ==
[2023-04-19 10:59] VITALS: BP 122/80; PULSE 88; O2SAT 93
--- NOTE | 2023-04-19 10:59 | A.OFFVIS_ITS ---
Intake Vital Signs 04/19/23 10:59 Height 5 ft 1 in BP 122/80 Blood Pressure Location Lt brachial Position Sitting Pulse 88 Pulse Source Pulse Oximeter Pulse Oximetry (%) 93 Oxygen Delivery Method Room Air Intake Visit Reasons: Gout Intake Note: Patient last seen 01/17/23 presents today for follow up and test results. Orders were faxed to [facility] on 04/13. Today pt reports pain in knees and bl shoulders. Blood Donor Recruiter Required: No Accompanied by: EMT Allergies No Known Allergies Allergy (Verified 04/19/23 11:14) Medication List - Last Reconciled 04/19/23 by Marie Helms MD acetaminophen 1,000 mg PO QID PRN allopurinol 300 mg PO DAILY amiodarone 200 mg PO DAILY aspirin (Adult Low Dose Aspirin) 81 mg PO DAILY atorvastatin 20 mg PO BEDTIME bupropion HCl 150 mg PO BID canakinumab (PF) 150 mg subcut Q4W duloxetine 60 mg PO DAILY furosemide 20 mg PO DAILY gabapentin 100 mg PO BID hydroxyzine HCl 25 mg PO TID metoprolol tartrate 1 tab PO BID omeprazole 20 mg PO DAILY oxycodone ER (OxyContin) 10 mg PO BID potassium chloride ER 20 mEq PO DAILY prednisone 5 mg PO DAILY tramadol 50 mg PO BID PRN trazodone 50 mg PO BEDTIME PRN warfarin (Jantoven) 2 mg PO DAILY@1800 warfarin 0 mg PO warfarin 0 mg PO zolpidem (Ambien) 10 mg PO BEDTIME PRN HPI HPI Comments History of Present Illness Details 62-year-old male with gout presents for follow-up. He is here on the stretcher. He Is transferred from his long-term care facility. Most recent canakinumab injection was 09/2022. He is on allopurinol 300 mg daily and prednisone 5 mg daily. States that he has been having bilateral knee pain and bilateral shoulder pain. Shoulder pain is worse on the left. States that he is having trouble to reach the light switch. He does some exercises in bed with his hands and feet. But has not been able to bend his knees. He denies having any swollen joints Initial history: This is a 61-year-old male with a past medical history of hypertension, dyslipidemia, AFib on Coumadin, type 2 diabetes mellitus presents for evaluation of diffuse joint pain. He was transferred from a rehab facility. Patient stated he has been in rehab for about 3 months due to multiple falls and inability to walk well. He had a fall while in the shower about 7 months ago when his legs suddenly gave out, he fell straight down on his buttocks, he denied any loss of consciousness or fractures at that time. He had a similar episode about 6 months ago when he was entering a car and his legs gave out and he fell but did not break anything. Patient stated that he he had gout for a few years now. Initially the attacks would involve his bilateral big toes and both feet, attacks usually would improve with prednisone tapers. He has had severe bilateral knee osteoarthritis and has been getting steroid injections for many years. Currently patient can barely walk due to bilateral knee pain. He also developed severe left shoulder pain a few weeks ago and now he has difficulty raising his left shoulder above his head. He was also diagnosed with kidney stones that were seen on imaging. Does not know what type of stones. [facility] Medical History Stage 3 chronic kidney disease Type 2 diabetes mellitus Congestive heart failure Sleep disorder Vitamin D deficiency Microalbuminuria Obesity Atrial fibrillation QT prolongation Anemia Impaired fasting glucose Surgical History History of surgery on left wrist Hx of hernia repair Family History Father CHF (congestive heart failure) Mother Thyroid disease Social History Household Members: None Housing: Apartment Housing Other:: 3rd floor walk up Do you presently have visiting nurse or other home services: Yes (X1 weekly) Alcohol intake: never Patient Tobacco Use Status: Former Tobacco user Years Smoked: QUIT 30 YEARS AGO service: No Current occupational status: disabled 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 Review of Systems Musc Reports arthralgias, Denies joint swelling, Reports limited range of motion and Reports stiffness Physical Exam Vital Signs: Last Vital Signs Pulse 88 04/19/23 10:59 BP 122/80 04/19/23 10:59 Pulse Ox 93 04/19/23 10:59 Oxygen Delivery Method Room Air 04/19/23 10:59 Const General: cooperative Nutritional Appearance: obese Orientation/consciousness: patient oriented x3 Limitations: other limitations (Patient came on a stretcher) HEENT Head: Yes normocephalic and Yes atraumatic Resp Effort & Inspection: normal respiratory effort and able to speak in complete sentences Neuro General: patient oriented x3 Extrem Other: Prominent tophi of both big toes. Tophi on fingers No active synovitis today Bilateral shoulder pain with shoulder abduction Positive empty can test and Speed's test on the left Results Reviewed Results Reviewed: MRI left shoulder 07/29? Impression: ?1. Arthritic changes about normally aligned AC joint with intense capsular enhancement and adjacent subacromial/subdeltoid bursitis, infectious, inflammatory and arthritic etiologies considered 2. Tearing of the distal fibers of supraspinatus tendon anteriorly, suspected to be full-thickness, without tendon retraction. 3. Small joint effusion affecting glenohumeral joint may be reactive.? Infectious and inflammatory etiologies not excluded 4. Diffuse labral irregularity.? Motion artifact degrades detail, but extended labral tearing is considered CT chest angiogram Impression 1. No pulmonary embolus? 2. Hepatic splenomegaly with decreased attenuation of the liver consistent with fatty infiltration or other hepatocellular disease.?? Assessment & Plan Assessment & Plan (1) Gout: Comment: Could not tolerate colchicine due to severe GI side effects Code(s): M10.9 - Gout, unspecified Qualifiers: Gout site: multiple sites Gout etiology: idiopathic Chronicity: chronic Presence of tophus: with tophus Qualified Code(s): M1A.09X1 - Idiopathic chronic gout, multiple sites, with tophus (tophi) Plan: This is a 62-year-old male with metabolic syndrome including obesity, hypertension, dyslipidemia, type 2 diabetes mellitus, CKD presents for follow-up of gout. On exam he has large tophi of his feet and hands. He is on allopurinol 300 mg daily and prednisone 5 mg daily Patient received canakinumab injection in June and August & September. Please doing very well overall. His symptoms today are likely mechanical in nature with degenerative arthritis and tendonitis. Increase prednisone to 10 mg daily for 1 week then remain on 5 mg daily Continue allopurinol 300 mg daily Will only use canakinumab injections as needed for now. advised patient's nurse that if he develops breakthrough pain to call the office and we can bring him in sooner for a canakinumab injection CBC, CMP, ESR, CRP, uric acid before next visit in 4 months Plan I spent 26 minutes reviewing patient's chart, evaluating patient, documenting in patient's long-term care chart, counseling patient and documenting in the chart Coding Level of Care Code Est Pt Level 4 (72851) Diagnoses Idiopathic chronic gout of multiple sites with tophus M1A.09X1 Gout site: multiple sites Gout etiology: idiopathic Chronicity: chronic Presence of tophus: with tophus
== END 2023-04-19 11:39 | disposition home or self-care (01) ==
PROVIDERS: Visit Provider Student in an Organized Health Care Education/Training Program
DX: M1A.09X1 Idiopathic chronic gout, multiple sites, with tophus (tophi) (principal)
CPT/HCPCS: 99214

== ENCOUNTER → 2023-04-19 10:57 | Outpatient (BNVA) | payer OTHER, SELFPAY | PROVIDERS: Visit Provider Student in an Organized Health Care Education/Training Program | DX: M1A.09X1 Idiopathic chronic gout, multiple sites, with tophus (tophi) (principal) | CPT/HCPCS: 99212 ==

== ENCOUNTER 2023-08-23 10:56 | Outpatient (AMB) | payer OTHER, SELFPAY ==
--- NOTE | 2023-08-23 10:58 | A.OFFVIS_ITS ---
Vital Signs 08/23/23 11:03 Height 5 ft 11 in Weight 386 lb BMI 53.8 BP 124/72 Blood Pressure Location Lt brachial Position Sitting Pulse 52 Pulse Source Pulse Oximeter Pulse Oximetry (%) 93 Oxygen Delivery Method Room Air Intake Visit Reasons: Gout/CM Intake Note: Patient presents for Gout. Allergies No Known Allergies Allergy (Verified 08/23/23 11:02) HPI Comments Details: 63-year-old male with gout presents for follow-up. He is here on the stretcher. He Is transferred from his long-term care facility. Most recent canakinumab injection was 09/2022. He is on allopurinol 300 mg daily and prednisone 5 mg daily. States that he is doing quite well overall. He gets some achiness in his right hand MCPs and wrists. Significant swelling. Has normal range of motion of his shoulders. Still can not do much walking due to significant bilateral knee arthritis Initial history: This is a 61-year-old male with a past medical history of hypertension, dyslipidemia, AFib on Coumadin, type 2 diabetes mellitus presents for evaluation of diffuse joint pain. He was transferred from a rehab facility. Patient stated he has been in rehab for about 3 months due to multiple falls and inability to walk well. He had a fall while in the shower about 7 months ago when his legs suddenly gave out, he fell straight down on his buttocks, he denied any loss of consciousness or fractures at that time. He had a similar episode about 6 months ago when he was entering a car and his legs gave out and he fell but did not break anything. Patient stated that he he had gout for a few years now. Initially the attacks would involve his bilateral big toes and both feet, attacks usually would improve with prednisone tapers. He has had severe bilateral knee osteoarthritis and has been getting steroid injections for many years. Currently patient can barely walk due to bilateral knee pain. He also developed severe left shoulder pain a few weeks ago and now he has difficulty raising his left shoulder above his head. He was also diagnosed with kidney stones that were seen on imaging. Does not know what type of stones. [facility] Medical History Stage 3 chronic kidney disease Type 2 diabetes mellitus Congestive heart failure Sleep disorder Vitamin D deficiency Microalbuminuria Obesity Atrial fibrillation QT prolongation Anemia Impaired fasting glucose Surgical History History of surgery on left wrist Hx of hernia repair Family History Father CHF (congestive heart failure) Mother Thyroid disease Social History Household Members: None Housing: Apartment Housing Other:: 3rd floor walk up Do you presently have visiting nurse or other home services: Yes (X1 weekly) Alcohol intake: never Patient Tobacco Use Status: Former Tobacco user Years Smoked: QUIT 30 YEARS AGO service: No Current occupational status: disabled 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 Review of Systems Musc Reports arthralgias, Denies joint swelling and Reports stiffness Physical Exam Vital Signs: Last Vital Signs Pulse 52 08/23/23 11:03 BP 124/72 08/23/23 11:03 Pulse Ox 93 08/23/23 11:03 Oxygen Delivery Method Room Air 08/23/23 11:03 BMI result Body Mass Index 53.8 Const General: cooperative Nutritional Appearance: obese Orientation/consciousness: patient oriented x3 Limitations: other limitations (Patient came on a stretcher) HEENT Head: Yes normocephalic and Yes atraumatic Resp Effort & Inspection: normal respiratory effort and able to speak in complete sentences Neuro General: patient oriented x3 Extrem Other: Prominent tophi of both big toes. Tophi on fingers No active synovitis today Normal range of motion of shoulders without pain Minimal right wrist swelling, minimal warmth and pain with flexion and extension Positive right hand MCP squeeze test Results Reviewed Results Reviewed: MRI left shoulder 07/29? Impression: ?1. Arthritic changes about normally aligned AC joint with intense capsular enhancement and adjacent subacromial/subdeltoid bursitis, infectious, inflammatory and arthritic etiologies considered 2. Tearing of the distal fibers of supraspinatus tendon anteriorly, suspected to be full-thickness, without tendon retraction. 3. Small joint effusion affecting glenohumeral joint may be reactive.? Infectious and inflammatory etiologies not excluded 4. Diffuse labral irregularity.? Motion artifact degrades detail, but extended labral tearing is considered CT chest angiogram Impression 1. No pulmonary embolus? 2. Hepatic splenomegaly with decreased attenuation of the liver consistent with fatty infiltration or other hepatocellular disease.?? Assessment & Plan Assessment & Plan (1) Gout: Comment: Could not tolerate colchicine due to severe GI side effects Code(s): M10.9 - Gout, unspecified Category: Medical Qualifiers: Gout site: multiple sites Gout etiology: idiopathic Chronicity: chronic Presence of tophus: with tophus Qualified Code(s): M1A.09X1 - Idiopathic chronic gout, multiple sites, with tophus (tophi) Plan: This is a 63-year-old male with metabolic syndrome including obesity, hypertension, dyslipidemia, type 2 diabetes mellitus, CKD presents for follow-up of gout. On exam he has large tophi of his feet and hands. He is on allopurinol 300 mg daily and prednisone 5 mg daily Patient received canakinumab injection in June and August & September 2022. Patient doing very well overall. Today he has minimal right wrist synovitis. I offered him an injection. Patient was not interested. Symptoms are very minimal Continue allopurinol 300 mg daily Reduce prednisone to 2.5 mg daily Will only use canakinumab injections as needed for now. advised patient's nurse that if he develops breakthrough pain to call the office and we can bring him in sooner for a canakinumab injection CBC, CMP, ESR, CRP, uric acid before next visit in 4 months Plan I spent 26 minutes reviewing patient's chart, evaluating patient, documenting in patient's long-term care chart, counseling patient and documenting in the chart Coding Level of Care Code Est Pt Level 4 (49463) Diagnoses Idiopathic chronic gout of multiple sites with tophus M1A.09X1 Gout site: multiple sites Gout etiology: idiopathic Chronicity: chronic Presence of tophus: with tophus
[2023-08-23 11:03] VITALS: BP 124/72; PULSE 52; O2SAT 93; BMI 53.8
== END 2023-08-23 11:32 | disposition home or self-care (01) ==
LOC: HO.RHE 10:56
PROVIDERS: PCP Family Medicine Geriatric Medicine; Visit Provider Student in an Organized Health Care Education/Training Program
DX: M1A.09X1 Idiopathic chronic gout, multiple sites, with tophus (tophi) (principal)
CPT/HCPCS: 99214

== ENCOUNTER → 2023-08-23 10:56 | Outpatient (BNVA) | payer MEDICARE, SELFPAY | PROVIDERS: PCP Family Medicine Geriatric Medicine; Visit Provider Student in an Organized Health Care Education/Training Program | DX: M1A.09X1 Idiopathic chronic gout, multiple sites, with tophus (tophi) (principal) | CPT/HCPCS: 99212 ==